=== PATIENT | male | born 1940 | race Caucasian/White ===

== ENCOUNTER 2017-05-08 14:51 | Outpatient (RCR) | payer MEDICARE, BC, SELFPAY ==
[2017-05-08 15:44] LABS: Color, Urine Yellow (Yellow); Glucose, Dipstick Normal (Normal); Ketone-Dipstick Negative (Negative); Leukocyte Esterase-Dipstick 25 /ul (Negative); Nitrite-Dipstick Negative (Negative); Occult Blood-Urine 25 /ul (Negative); Protein-Dipstick Negative (Negative); Specific Gravity, Urine 1.005 (1.002-1.030); Urine Bilirubin Dipstick Negative (Negative); Urine Clarity Sl. Cloudy (Clear); Urine Urobilinogen Normal (Normal)
[2017-05-08 15:54] LABS: International Normalized Ratio 3.4
[2017-05-08 16:26] LABS: LDH 342 U/L (87-241)
[2017-05-09 14:50] LABS: HCG BETA-SUBUNIT QUANT. 1 mIU/mL (0-3)
== END 2017-05-08 15:15 | disposition home or self-care (01) ==
LOC: MTLAB 14:51
PROVIDERS: Family Provider Internal Medicine; PCP Internal Medicine; Visit Provider Internal Medicine Cardiovascular Disease
DX: Z51.81 Encounter for therapeutic drug level monitoring (principal); N50.9 Disorder of male genital organs, unspecified; N32.81 Overactive bladder; C62.92 Malignant neoplasm of left testis, unspecified whether descended or undescended
CPT/HCPCS: 36415; 81002; 82105; 83615; 84702; 85610

== ENCOUNTER → 2017-06-02 13:42 | Outpatient (CLI) | payer MEDICARE, BC, SELFPAY ==
[2017-06-02 16:37] LABS: Phenytoin (Dilantin) Level 13.5 mL (10.0-20.0)
== END ==
PROVIDERS: Family Provider Internal Medicine; PCP Internal Medicine; Visit Provider Internal Medicine
DX: R56.9 Unspecified convulsions (principal)
CPT/HCPCS: 36415; 80185

== ENCOUNTER → 2017-06-05 12:56 | Outpatient (CLI) | payer MEDICARE, BC, SELFPAY ==
--- NOTE | 2017-06-05 12:57 | ECHOD_ITS ---
Reason For Study: Mechanical AV, Dilated Aortic Root Procedure This was a 2D Doppler, Color Flow transthoracic echocardiogram. The exam was of adequate technical quality. Exam performed in department. Left Ventricle Normal LV size. Moderate concentric left ventricular hypertrophy. Left ventricular systolic function is normal. The estimated ejection fraction is 55 %. No regional wall motion abnormalities noted. Right Ventricle Normal RV size. Normal systolic function. Atria Normal left atrium. Normal right atrium. Positive agitated saline contrast study for a right to left interatrial shunt c/w a PFO vs. ASD. Mitral Valve There is no mitral annular calcification. Normal mitral valve. Mild (1+) mitral valve insufficiency. 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 Mild tricuspid valve insufficiency. Right ventricular systolic pressure estimated to be 26 mmHg. Aortic Valve Stable appearing mechanical aortic valve apparatus. Pulmonic Valve The pulmonic valve is not well visualized. Trivial pulmonic valve insufficiency. Great Vessels Mild to moderately dilated aortic root. Pericardium/Pleural No pericardial effusion. Medication 22 gauge I.V. with prn adaptor inserted into right arm. Performed a rapid injection of agitated mix of 9 cc saline and 1cc air to assess for atrial septal defect. MMode/2D Measurements & Calculations LVIDd: 4.3 cm IVSd: 1.5 cm LVOT diam: 2.0 cm LVIDs: 2.8 cm LVPWd: 1.4 cm LVOT area: 3.0 cm2 FS: 34.0 % Ao root diam: 4.5 cm LAV(MOD-bp): 46.7 ml LA A4 area: 16.6 cm2 LA dimension: 3.2 cm LAV(MOD-bp) Indexed: 25.3 ml/m2 LAV(MOD-sp2): 43.0 ml LAV(MOD-sp4): 47.6 ml RA A4 area: 16.4 cm2 Time Measurements MV dec time: 0.36 sec Doppler Measurements & Calculations MV E max sunny: 60.8 cm/sec Lat Peak E' Sunny: 6.8 cm/sec Med Peak E' Sunny: 7.0 cm/sec MV A max sunny: 85.7 cm/sec E/E' lat: 9.0 E/E' med: 8.7 MV E/A: 0.71 MV V2 max: 96.6 cm/sec MV P1/2t max sunny: 64.2 cm/sec Ao V2 max: 255.7 cm/sec MV max P.7 mmHg MV P1/2t: 106.8 msec Ao max P.2 mmHg MV V2 mean: 44.9 cm/sec MV dec slope: 176.0 cm/sec2 Ao V2 mean: 173.0 cm/sec MV mean P.97 mmHg MVA(P1/2t): 2.1 cm2 Ao mean P.8 mmHg MV V2 VTI: 29.3 cm Ao V2 VTI: 47.5 cm MVA(VTI): 1.9 cm2 ROXANNE(I,D): 1.1 cm2 ROXANNE(V,D): 1.0 cm2 LV V1 max: 84.4 cm/sec SV(LVOT): 54.4 ml PA V2 max: 99.2 cm/sec LV V1 max P.9 mmHg LV V1 mean P.3 mmHg LV V1 mean: 51.5 cm/sec LV V1 VTI: 17.9 cm TR max sunny: 240.4 cm/sec TR max P.1 mmHg Interpretation Summary Left ventricular systolic function is normal. The estimated ejection fraction is 55 %. Moderate concentric left ventricular hypertrophy. Mild (1+) mitral valve insufficiency. 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 Stable appearing mechanical aortic valve apparatus. Trivial pulmonic valve insufficiency. Mild to moderately dilated aortic root. Right ventricular systolic pressure estimated to be 26 mmHg. Positive agitated saline contrast study for a right to left interatrial shunt c/w a PFO vs. ASD. 2D echocardiographic images demonstrate a small intermittent vague echodensity on the ventricular aspect of the aortic valve apparatus of uncertain etioloigy: potentially c/w echocardiographic artifact / reverberation, however, other etiologies such as thrombus or vegetation cannt be excluded. C/W the previous TTE from 09/04/2006 there are similar type findings. Ordering Physician: Eran Zimmer Referring Physician: Eran Zimmer Performed By: Jayme Fermin RCS
== END ==
PROVIDERS: Family Provider Internal Medicine; PCP Internal Medicine; Visit Provider Internal Medicine Cardiovascular Disease
DX: I77.810 Thoracic aortic ectasia (principal); I51.9 Heart disease, unspecified; Z87.74 Personal history of (corrected) congenital malformations of heart and circulatory system; Z95.2 Presence of prosthetic heart valve; Z86.79 Personal history of other diseases of the circulatory system; Z98.890 Other specified postprocedural states
CPT/HCPCS: 93306; A4216

== ENCOUNTER 2017-06-12 11:13 | Outpatient (RCR) | payer MEDICARE, BC, SELFPAY ==
[2017-06-12 12:47] LABS: Color, Urine Yellow (Yellow); Glucose, Dipstick Normal (Normal); Ketone-Dipstick Negative (Negative); Leukocyte Esterase-Dipstick 25 /ul (Negative); Nitrite-Dipstick Negative (Negative); Occult Blood-Urine 10 /ul (Negative); Protein-Dipstick Negative (Negative); Urine Bilirubin Dipstick Negative (Negative); Urine Clarity Clear (Clear); Urine Urobilinogen Normal (Normal)
[2017-06-12 14:43] LABS: Phenytoin (Dilantin) Level 8.1 mL (10.0-20.0)
[2017-06-26 11:51] LABS: Prothrombin Time Fingerstick 26.2 SEC (11.9-14.4)
== END 2017-06-12 15:00 | disposition home or self-care (01) ==
LOC: MTLAB 11:13
PROVIDERS: Family Provider Internal Medicine; PCP Internal Medicine; Visit Provider Internal Medicine Cardiovascular Disease
DX: N39.0 Urinary tract infection, site not specified (principal); N32.81 Overactive bladder
CPT/HCPCS: 36415; 36416; 80185; 81002; 85610

== ENCOUNTER 2017-07-31 12:00 | Outpatient (RCR) | payer MEDICARE, BC, SELFPAY ==
[2017-07-10 11:11] LABS: Prothrombin Time Fingerstick 29.8 SEC (11.9-14.4)
[2017-07-31 12:20] LABS: Prothrombin Time Fingerstick 30.1 SEC (11.9-14.4)
== END 2017-07-31 13:00 | disposition home or self-care (01) ==
LOC: MTLAB 12:00
PROVIDERS: Family Provider Family Medicine; PCP Family Medicine; Visit Provider Internal Medicine Cardiovascular Disease
DX: N32.81 Overactive bladder (principal); N39.0 Urinary tract infection, site not specified; Z51.81 Encounter for therapeutic drug level monitoring
CPT/HCPCS: 36416; 85610

== ENCOUNTER 2017-08-12 09:25 | Outpatient (RCR) | payer MEDICARE, BC, SELFPAY ==
[2017-08-12 09:41] LABS: Prothrombin Time Fingerstick 25.1 SEC (11.9-14.4)
[2017-08-12 12:20] LABS: Color, Urine Yellow (Yellow); Glucose, Dipstick Normal (Normal); Ketone-Dipstick Negative (Negative); Leukocyte Esterase-Dipstick Negative /ul (Negative); Nitrite-Dipstick Negative (Negative); Occult Blood-Urine 10 /ul (Negative); Protein-Dipstick Negative (Negative); Urine Bilirubin Dipstick Negative (Negative); Urine Clarity Clear (Clear); Urine Urobilinogen Normal (Normal)
== END 2017-08-12 10:00 | disposition home or self-care (01) ==
LOC: MTLAB 09:25
PROVIDERS: Internal Medicine; Family Provider Family Medicine; PCP Family Medicine; Visit Provider Internal Medicine Cardiovascular Disease
DX: N32.81 Overactive bladder (principal); Z51.81 Encounter for therapeutic drug level monitoring
CPT/HCPCS: 36416; 81002; 85610

== ENCOUNTER → 2017-08-19 09:46 | Outpatient (CLI) | payer MEDICARE, BC, SELFPAY ==
--- NOTE | 2017-08-19 09:48 | ECHOTEE_ITS ---
Reason For Study: Aortic valve replacement Medication EUGENIE probe passed with minimal difficulty. No complications were noted. Cetacaine Topical [place] given X3 orally. Versed 2 mg given slow IVP. Fentanyl 100 mcg given slow IVP. Performed a rapid injection of agitated mix of 9 cc saline and 1cc air to assess for atrial septal defect. Left Ventricle Normal LV size. Left ventricular systolic function is normal. The estimated ejection fraction is 60 %. No regional wall motion abnormalities noted. Right Ventricle Normal RV size. Normal systolic function. Atria Positive agitated saline contrast study for a right to left interatrial shunt c/w a small PFO. The left atrium is mildly enlarged. There is no sponatenous contrast in the left atrium. No thrombus is detected in the left atrial appendage. Normal right atrium. There is no sponatenous contrast in the right atrium. No RA / appendage thrombus identified. Mitral Valve There is no mitral annular calcification. Normal mitral valve. Mild (1+) mitral valve insufficiency. Tricuspid Valve The tricuspid valve is not well visualized. Trivial tricuspid valve insufficiency. Aortic Valve Stable appearing mechanical aortic valve apparatus. Pulmonic Valve The pulmonic valve is not well visualized. Trivial pulmonic valve insufficiency. Vessels Mild atherosclerosis of the descending aorta. Pericardium No pericardial effusion. Interpretation Summary Left ventricular systolic function is normal. The estimated ejection fraction is 60 %. The left atrium is mildly enlarged. There is no sponatenous contrast in the left atrium. No thrombus is detected in the left atrial appendage. Mild (1+) mitral valve insufficiency. Trivial tricuspid valve insufficiency. Stable appearing mechanical aortic valve apparatus. Trivial pulmonic valve insufficiency. Positive agitated saline contrast study for a right to left interatrial shunt c/w a small PFO. Mild atherosclerosis of the descending aorta. 2D echocardiographic images demonstrate intermittent small mobile echodensities in the sub aortic valve area / LVOT area appearing c/w fibrinous strands. Ordering Physician: Eran Zimmer Referring Physician: William Flores MD Performed By: [facility]
== END ==
PROVIDERS: Family Provider Family Medicine; PCP Family Medicine; Visit Provider Internal Medicine Cardiovascular Disease
DX: Z95.2 Presence of prosthetic heart valve (principal)
CPT/HCPCS: 93312; 93320; 93325; J7030; A4216

== ENCOUNTER 2017-08-28 13:47 | Outpatient (RCR) | payer MEDICARE, BC, SELFPAY ==
[2017-08-28 14:01] LABS: Prothrombin Time Fingerstick 16.6 SEC (11.9-14.4)
== END 2017-08-28 14:00 | disposition home or self-care (01) ==
LOC: MTLAB 13:47
PROVIDERS: Family Provider Family Medicine; PCP Family Medicine; Visit Provider Internal Medicine Cardiovascular Disease
DX: Z51.81 Encounter for therapeutic drug level monitoring (principal)
CPT/HCPCS: 36416; 85610

== ENCOUNTER → 2017-09-23 18:31 | Outpatient (CLI) | payer MEDICARE, BC, SELFPAY | PROVIDERS: Family Provider Family Medicine; PCP Nurse Practitioner Adult Health; Visit Provider Nurse Practitioner Adult Health | DX: R35.1 Nocturia (principal) | CPT/HCPCS: 87086 ==

== ENCOUNTER 2017-10-02 13:19 | Outpatient (RCR) | payer MEDICARE, BC, SELFPAY ==
[2017-09-04 13:16] LABS: Prothrombin Time Fingerstick 20.6 SEC (11.9-14.4)
[2017-09-11 15:25] LABS: Prothrombin Time Fingerstick 35.1 SEC (11.9-14.4)
[2017-09-19 10:30] LABS: Prothrombin Time Fingerstick 60.7 SEC (11.9-14.4)
[2017-09-19 12:42] LABS: Prothrombin Time (Protime)PT. 47.6 SECONDS (11.7-14.9)
[2017-09-19 12:45] LABS: International Normalized Ratio 5.1
[2017-09-26 12:53] LABS: International Normalized Ratio 2.9; Prothrombin Time (Protime)PT. 30.1 SECONDS (11.7-14.9)
[2017-10-02 13:36] LABS: Prothrombin Time Fingerstick 36.7 SEC (11.9-14.4)
== END 2017-10-02 14:00 | disposition home or self-care (01) ==
LOC: MTLAB 13:19
PROVIDERS: Family Provider Family Medicine; PCP Family Medicine; Visit Provider Internal Medicine Cardiovascular Disease
DX: R30.0 Dysuria (principal); Z51.81 Encounter for therapeutic drug level monitoring
CPT/HCPCS: 36415; 36416; 85610

== ENCOUNTER 2017-10-23 10:45 | Outpatient (RCR) | payer MEDICARE, BC, SELFPAY ==
--- NOTE | 2017-10-10 16:03 | DT_ITS ---
This patient was seen during an EMR downtime October 06, 2017 - October 13, 2017. This patient may have a combination of paper and electronic documentation or all paper documentation. All documentation is viewable within the e-chart portion of [employer] for each patient visit.
[2017-10-13 10:40] LABS: Prothrombin Time Fingerstick 33.6 SEC (11.9-14.4)
[2017-10-23 11:01] LABS: Prothrombin Time Fingerstick 29.2 SEC (11.9-14.4)
== END 2017-10-23 12:00 | disposition home or self-care (01) ==
LOC: MTLAB 10:45
PROVIDERS: Family Provider Family Medicine; PCP Nurse Practitioner Adult Health; Visit Provider Internal Medicine Cardiovascular Disease
DX: Z51.81 Encounter for therapeutic drug level monitoring (principal)
CPT/HCPCS: 36416; 85610

== ENCOUNTER → 2017-10-30 09:27 | Outpatient (CLI) | payer MEDICARE, BC, SELFPAY ==
[2017-10-30 12:10] LABS: Color, Urine Yellow (Yellow); Glucose, Dipstick Normal (Normal); Ketone-Dipstick Negative (Negative); Leukocyte Esterase-Dipstick 25 /ul (Negative); Nitrite-Dipstick Negative (Negative); Occult Blood-Urine 50 /ul (Negative); Protein-Dipstick Negative (Negative); Urine Bilirubin Dipstick Negative (Negative); Urine Clarity Clear (Clear); Urine Urobilinogen Normal (Normal)
== END ==
PROVIDERS: Family Provider Family Medicine; PCP Nurse Practitioner Adult Health; Visit Provider Family Medicine
DX: R30.0 Dysuria (principal)
CPT/HCPCS: 81002; 87086

== ENCOUNTER 2017-11-01 01:40 | Emergency (ER) | payer MEDICARE, BC, SELFPAY ==
[2017-11-01 01:41] VITALS: BP 147/92; PULSE 66; RESP 24; TEMP 36.7; O2SAT 94; BMI 24.9
[2017-11-01] MEDS: Lidocaine Jelly 2% 20 ML Syringe (URO-JET) 20 APPLIC TOPICAL (02:15)
[2017-11-01 02:17] LABS: Absolute Lymphocyte Count 1.86 X10^3/ul (0.83-4.51); Basophil# 0.02 X10^3/uL; Basophil% 0.2 % (0-1); Eosinophil# 0.18 X10^3/uL; Eosinophils% 2.2 % (0-5); Hematocrit 43.3 % (40-54); Hemoglobin 14.6 g/dl (13.0-16.5); Lymphocyte # 1.86 X10^3/ul (4.0); Lymphocyte % 23.1 % (19-41); Mean Corp Hgb Conc 33.7 g/gl (32-36); Mean Corpuscular Hgb 31.8 pg (27.0-32.0); Mean Corpuscular Volume 94.3 fL (80-94); Monocyte# 0.96 X10^3/uL; Monocyte% 11.9 % (0-10); Neutrophil % 62.4 % (47-70); Platelet Count 131 K/mm3 (150-450); RBC Distribution Width CV 12.3 % (11.6-14.6); Red Blood Count 4.59 M/mm3 (4.6-6.2)
[2017-11-01 02:19] LABS: POSITIVE COUNT NO; POSITIVE DIFFERENTIAL NO; POSITIVE MORPHOLOGY NO
[2017-11-01 02:25] LABS: International Normalized Ratio 2.9; Prothrombin Time (Protime)PT. 30.5 SECONDS (11.7-14.9)
[2017-11-01 02:29] LABS: Anion Gap 7 (5-15); BUN 16 mg/dL (7-18); BUN/Creat Ratio 16.1 RATIO (10-20); Calcium,Total 8.3 mg/dL (8.5-10.1); Chloride 109 mmol/L (98-107); EST Glomerular Filtration Rate 78 mL/min (>60); Est Glom Filt Rate - Afr Amer 94 mL/min (>60); Estimated Creatinine Clearance 61.75 ml/min; Glucose 94 mg/dL (74-106); Potassium 3.9 mmol/L (3.5-5.1); Sodium Level 141 mmol/L (136-145)
[2017-11-01 02:38] LABS: Mucous, Urine 0 SEEN /hpf (<or=2+); Squamous Epithelial Cells - UA 0 SEEN /hpf (0-5); White Blood Cells 0 SEEN /hpf (0-5)
[2017-11-01 02:42] LABS: Color, Urine Yellow (Yellow); Glucose, Dipstick Normal (Normal); Ketone-Dipstick Negative (Negative); Leukocyte Esterase-Dipstick Negative /ul (Negative); Nitrite-Dipstick Negative (Negative); Occult Blood-Urine 250 /ul (Negative); Protein-Dipstick Negative (Negative); Specific Gravity, Urine 1.005 (1.002-1.030); Urine Bilirubin Dipstick Negative (Negative); Urine Clarity Sl. Cloudy (Clear); Urine Urobilinogen Normal (Normal)
[2017-11-01 02:46] VITALS: BP 134/79; RESP 15; O2SAT 93
[2017-11-01 02:53] LABS: Red Blood Cells-Urine 25-50 SEEN /hpf (0-5)
[2017-11-01 02:55] LABS: Bacteria RARE /hpf (None Seen)
--- NOTE | 2017-11-01 03:11 | ED.VISSUMM ---
- ER Visit Summary Date of Service: 11/01/17 Chief Complaint: Urinary retention History of Present Illness: The patient is a [address] Andrews and Dr. Sethi. 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 He states he does not empty his bladder well at baseline, but reports that he has had very small volumes for the past 2 days and feels as though he needs to urinate constantly. He denies any abdominal pain. No nausea, vomiting, or diarrhea. His last problem was 2 days ago. Typically he goes daily. He denies any dysuria or hematuria. Physical Examination: Vitals: Stable. Afebrile. General: Well-nourished and well-developed. Head: Normocephalic atraumatic. Neck: Supple, no lymphadenopathy. No JVD. Nontender. Cardiovascular: Regular rate and rhythm. 2 out of 6 systolic murmur with mechanical valve click. Respiratory: No respiratory distress. Clear to auscultation bilaterally. Abdominal: Soft, nontender, nondistended, normal bowel sounds. No guarding, rebound, or peritoneal signs. Back: Nontender. Extremities: Nontender, no edema. Skin: Normal color, no rash. Neurologic: Alert and oriented ?3. Cranial nerves II through XII are intact. Normal strength and sensation. Psych: Normal affect. Test Results: CBC is more for platelets 131 monocytes of 12. Chem-7 more for chloride of 109 and calcium of 8.3. Of note his creatinine is 1.0. INR is 2.9. UA shows 25-50 red blood cells, but this was after catheterization. Emergency Department Course and Treatment: Patient had a Mena catheter placed in the medial he had 600 cc of urine out. He feels much improved. Treatment Plan: Patient will be discharged with Mena catheter and Flomax. Instructed to follow Dr. Andrews in 3-5 days for further evaluation. Return to the emergency department for any worsening symptoms. Disposition: To home in improved and stable condition. Impression: 1. Urinary retention. This note was generated with [employer] software. It may contain incorrect words, spelling, and punctuation that were not noted in review of the chart prior to signing ED Disposition - Plan for ED Patient: Disposition: Home or Assisted Living Chief Complaint: Constipation Instructions: ED Retention Urinary Male Prescriptions: Cephalexin [Keflex] 500 mg PO BID #10 capsule Referrals: Kevin Andrews MD [STAFF PHYSICIAN] - 3-5 Days
--- NOTE | 2017-11-01 03:14 | ED.DCSUM_ITS ---
- ER Visit Summary Date of Service: 11/01/17 Chief Complaint: Urinary retention History of Present Illness: The patient is a [address] Andrews and Dr. Sethi. 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 He states he does not empty his bladder well at baseline, but reports that he has had very small volumes for the past 2 days and feels as though he needs to urinate constantly. He denies any abdominal pain. No nausea , vomiting, or diarrhea. His last problem was 2 days ago. Typically he goes daily. He denies any dysuria or hematuria. Physical Examination: Vitals: Stable. Afebrile. General: Well-nourished and well-developed. Head: Normocephalic atraumatic. Neck: Supple, no lymphadenopathy. No JVD. Nontender. Cardiovascular: Regular rate and rhythm. 2 out of 6 systolic murmur with mechanical valve click. Respiratory: No respiratory distress. Clear to auscultation bilaterally. Abdominal: Soft, nontender, nondistended, normal bowel sounds. No guarding, rebound, or peritoneal signs. Back: Nontender. Extremities: Nontender, no edema. Skin: Normal color, no rash. Neurologic: Alert and oriented ?3. Cranial nerves II through XII are intact. Normal strength and sensation. Psych: Normal affect. Test Results: CBC is more for platelets 131 monocytes of 12. Chem-7 more for chloride of 109 and calcium of 8.3. Of note his creatinine is 1.0. INR is 2.9. UA shows 25-50 red blood cells, but this was after catheterization. Emergency Department Course and Treatment: Patient had a Mena catheter placed in the medial he had 600 cc of urine out. He feels much improved. Treatment Plan: Patient will be discharged with Mena catheter and Flomax. Instructed to follow Dr. Andrews in 3-5 days for further evaluation. Return to the emergency department for any worsening symptoms. Disposition: To home in improved and stable condition. Impression: 1. Urinary retention. This note was generated with [employer] software. It may contain incorrect words, spelling, and punctuation that were not noted in review of the chart prior to signing ED Disposition - Plan for ED Patient: Disposition: Home or Assisted Living Chief Complaint: Constipation Instructions: ED Retention Urinary Male Prescriptions: Cephalexin [Keflex] 500 mg PO BID #10 capsule Referrals: Kevin Andrews MD [STAFF PHYSICIAN] - 3-5 Days
[2017-11-01] MEDS: Cephalexin 250 MG Capsule 500 MG PO (03:22)
[2017-11-01 04:42] VITALS: BP 134/79; RESP 15; O2SAT 94
== END 2017-11-01 03:41 | disposition home or self-care (01) ==
PROVIDERS: Emergency Provider Emergency Medicine; Family Provider Family Medicine; PCP Family Medicine
DX: R33.9 Retention of urine, unspecified (principal); I69.398 Other sequelae of cerebral infarction; N32.89 Other specified disorders of bladder; I63.9 Cerebral infarction, unspecified; Z79.899 Other long term (current) drug therapy
CPT/HCPCS: 51702; 80048; 81001; 85025; 85610; 99285; A4216

== ENCOUNTER 2017-11-03 23:54 | Emergency (ER) | payer MEDICARE, BC, SELFPAY ==
[2017-11-03 23:55] VITALS: BP 150/86; PULSE 83; RESP 16; TEMP 36.8; O2SAT 97; BMI 23.6
--- NOTE | 2017-11-04 00:36 | ED.VISSUMM ---
- ER Visit Summary Date of Service: 11/04/17 Chief Complaint: Urinary retention History of Present Illness: The patient is a 77 M status post urinary retention due to enlarged prostate. At his Mena catheter taken out earlier today and his urologist office Dr. Villeda. Throughout the day since his catheter is removed he has had decreasing urination to the point where he was unable to urinate. Denies gross hematuria. Denies fever. Physical Examination: Well-appearing older male. Vital signs are stable afebrile. He does not look septic or toxic. He is in no acute distress. HEENT exam unremarkable. Neck nontender. Lungs clear to auscultation. Heart regular rhythm with a systolic ejection murmur from a prior aortic valve replacement. Abdomen is soft nondistended normal bowel sounds. He does have a full bladder and is mild tenderness suprapubically. External exam is unremarkable and he is circumcised. No gross blood. He has weakness in both left upper and lower extremity from a prior stroke. He is awake alert and talking. Test Results: None Emergency Department Course and Treatment: Nursing staff placed a 16 [place] Mena catheter with clear yellow urine. He had about 1 L out. On repeat exam at 00 36 he feels much better. His abdomen is nontender. He and his are comfortable with him being discharged home with a Mena catheter leg bag. He will follow-up with Dr. Andrews. He has a scheduled cystoscopy in the next week or so. Treatment Plan: DC with Mena leg bag Disposition: Discharge Impression: Acute urinary retention Mena catheter placed by nursing staff This note was generated with [employer] dictation software. It may contain incorrect words, spelling, and punctuation that were not noted in review of the chart prior to signing ED Disposition - Plan for ED Patient: Chief Complaint: Complaint Referrals: Magdaleno Flores MD [Primary Care Provider] -
--- NOTE | 2017-11-04 00:39 | ED.DEP ---
ED Disposition - Plan for ED Patient: Disposition: Home or Assisted Living Chief Complaint: Complaint Instructions: ED Retention Urinary Male Referrals: Kevin Andrews MD [STAFF PHYSICIAN] - As soon as possible Additional Instructions: Call follow-up with Dr. Andrews
== END 2017-11-04 02:08 | disposition home or self-care (01) ==
LOC: ED 11-04 01:17
PROVIDERS: Emergency Provider Emergency Medicine; Family Provider Family Medicine; PCP Family Medicine
DX: N40.1 Benign prostatic hyperplasia with lower urinary tract symptoms (principal); R33.8 Other retention of urine; Z86.73 Personal history of transient ischemic attack (TIA), and cerebral infarction without residual deficits
CPT/HCPCS: 51702; 99283

== ENCOUNTER 2017-11-29 03:19 | Inpatient (IN) | payer MEDICARE, BC, SELFPAY ==
[2017-11-29] VITALS (11 sets, daily range): BP systolic 116–159; BP diastolic 68–98; PULSE 49–68; RESP 16–20; TEMP 36.5–37.1; O2SAT 95–100; BMI 24.6; BMI 25.2
[2017-11-29 05:11] LABS: Absolute Lymphocyte Count 1.86 X10^3/ul (0.83-4.51); Absolute Neutrophil Count 3.6 X10^3/uL (2.0-7.7); Basophil# 0.01 X10^3/uL; Basophil% 0.2 % (0-1); Eosinophil# 0.25 X10^3/uL; Eosinophils% 3.9 % (0-5); Hematocrit 44.5 % (40-54); Lymphocyte # 1.86 X10^3/ul (4.0); Lymphocyte % 29.2 % (19-41); Mean Corp Hgb Conc 33.7 g/gl (32-36); Mean Corpuscular Hgb 32.3 pg (27.0-32.0); Mean Corpuscular Volume 95.7 fL (80-94); Mean Platelet Vol. 12.2 fl (6.2-12.0); Monocyte# 0.68 X10^3/uL; Monocyte% 10.7 % (0-10); Neutrophil # 3.55 X10^3/uL (2.7-7.7); Neutrophil % 55.8 % (47-70); Platelet Count 138 K/mm3 (150-450); RBC Distribution Width CV 12.1 % (11.6-14.6); RBC Distribution Width SD 41.2 fl (35.1-43.9); Red Blood Count 4.65 M/mm3 (4.6-6.2); White Blood Count 6.4 K/mm3 (4.4-11.0)
[2017-11-29 05:13] LABS: POSITIVE COUNT NO; POSITIVE DIFFERENTIAL NO; POSITIVE MORPHOLOGY NO
[2017-11-29 05:14] LABS: International Normalized Ratio 1.1; Prothrombin Time (Protime)PT. 14.4 SECONDS (11.7-14.9)
[2017-11-29 05:15] LABS: Partial Thromboplast Time 38.4 Seconds (24.1-36.2)
[2017-11-29 05:24] LABS: Anion Gap 8 (5-15); BUN 16 mg/dL (7-18); BUN/Creat Ratio 16.4 RATIO (10-20); Calcium,Total 8.5 mg/dL (8.5-10.1); Chloride 108 mmol/L (98-107); Creatinine, Serum 0.98 mg/dL (0.70-1.30); EST Glomerular Filtration Rate 80 mL/min (>60); Est Glom Filt Rate - Afr Amer 96 mL/min (>60); Estimated Creatinine Clearance 65.13 ml/min; Glucose 86 mg/dL (74-106); Potassium 4.4 mmol/L (3.5-5.1); Sodium Level 143 mmol/L (136-145)
[2017-11-29] MEDS: 0.9% Normal Saline 1,000 ML 150 ML IV (05:27)
[2017-11-29] MEDS: Cefazolin 1 GM/50 ML BAG IV (05:28)
[2017-11-29 05:36] LABS: Mucous, Urine 0 SEEN /hpf (<or=2+); Squamous Epithelial Cells - UA 0 SEEN /hpf (0-5); White Blood Cells 0 SEEN /hpf (0-5)
[2017-11-29 05:40] LABS: Color, Urine Red (Yellow); Glucose, Dipstick Normal (Normal); Ketone-Dipstick 15 mg/dl (Negative); Leukocyte Esterase-Dipstick Negative /ul (Negative); Nitrite-Dipstick Negative (Negative); Occult Blood-Urine 250 /ul (Negative); Protein-Dipstick 100 mg/dl (Negative); Urine Clarity Turbid (Clear); Urine Urobilinogen Normal (Normal)
--- NOTE | 2017-11-29 05:45 | HP.PCM_ITS ---
Problem List (1) Gross hematuria Status: Acute (2) Seizure disorder Status: Chronic (3) History of stroke Status: Chronic (4) History of mechanical aortic valve replacement Status: Chronic Comment: 1980; Revision AVR 1991 (5) History of endocarditis Status: Chronic (6) emt intermediate (current) use of anticoagulants Status: Chronic History of Present Illness Date of Admission: 11/29/17 Chief Complaint: Gross hematuria ?1 day The patient is a 77 year old M with a significant history of CVA, mechanical aortic valve first placed in 1980 because of aortic valve insufficiency and then replaced in 1991 because of infective endocarditis; seizure disorder, CVA and BPH who presented because of gross hematuria ?1 day. The patient had urinary retention about 4 weeks ago and had a Mena placed. After the first Mena was removed patient still noticed that he could not urinate so the Mena catheter was reinserted. He had a urolift procedure at his urologist's office to fix his urinary retention. Before the urolift procedure, per his assisted living executive director's instructions his Coumadin was stopped and he had a therapeutic bridge with Lovenox. After the Urolift procedure the patient noticed that the bag of his Mena catheter was filled with blood and the bag could not be drained. Subsequently patient came to the emergency department. At emergency department urology was called. Per urologist's recommendation the patient was given Ancef for another urological procedure today. Past Medical History Past Medical History (Chronic Problems): Chronic Problems (Last Updated 08/05/17 @ 14:38 by Rosemary Albrecht) Diastolic dysfunction (Chronic) Seizure disorder (Chronic) History of stroke (Chronic) History of mechanical aortic valve replacement (Chronic) 1980; Revision AVR 1991 History of endocarditis (Chronic) Hyperlipidemia (Chronic) Aortic root dilatation (Chronic) emt intermediate (current) use of anticoagulants (Chronic) Medical History: Medical History (Last Reviewed 11/29/17 @ 08:48 by Dawit Munoz MD) Diastolic dysfunction (Chronic) I51.9 Seizure disorder (Chronic) G40.909 History of stroke (Chronic) Z86.73 History of endocarditis (Chronic) Z86.79 Hyperlipidemia (Chronic) E78.5 Aortic root dilatation (Chronic) I77.810 emt intermediate (current) use of anticoagulants (Chronic) Z79.01 Herniated lumbar disc without myelopathy M51.26 Osteoarthritis of right knee M17.11 Pseudogout M11.20 Stroke I63.9 Herniated lumbar disc without myelopathy (Inactive) M51.26 Muscle spasms of neck (Inactive) M62.838 Seizure disorder (Inactive) G40.909 Urinary retention (Inactive) R33.9 Allergies No Known Allergies Allergy (Verified 11/03/17 23:59) Home Medications: Ambulatory Orders Medication Instructions Recorded Cyanocobalamin [Vitamin B12] 1,000 mcg PO QODAY 02/15/13 Levetiracetam [Keppra] 1,500 mg PO QHS 02/15/13 Warfarin [Coumadin] 7.5 mg PO MOWEFR 02/15/13 Finasteride [Proscar] 5 mg PO QHS 06/02/14 Alfuzosin HCl [Uroxatral] 20 mg PO QHS 02/20/15 Warfarin [Coumadin (PBKC)] 5 mg PO SUTUTHSA 02/20/15 antiarthritic combination no.2 900 900 mg PO TID ea 05/23/17 mg tablet calcium carbonate 600 mg calcium 600 mg PO BID tab 05/23/17 (1,500 mg) tablet cholecalciferol (vitamin D3) 50,000 unit PO QWEEK 05/23/17 50,000 unit capsule levetiracetam 1,000 mg tablet 1,000 mg PO DAILY 05/23/17 cjatfeto-fyx-kwpyi acid 0.4 1 tab PO QDAY 05/23/17 mg-lycopene 300 mcg-lutein 250 mcg tablet phenytoin sodium extended 100 mg 100 mg PO BID cap 05/23/17 capsule alendronate 70 mg tablet 70 mg PO QWEEK 28 Days #4 08/05/17 rosuvastatin 5 mg tablet 5 mg PO QHS 90 Days #90 08/05/17 tamsulosin 0.4 mg capsule 0.4 mg PO BID 08/05/17 Cephalexin [Keflex] 500 mg PO BID 11/29/17 Surgical History: Surgical History (Last Reviewed 11/29/17 @ 08:48 by Dawit Munoz MD) History of mechanical aortic valve replacement (Chronic) Z98.890, Z95.2 1980; Revision AVR 1991 History of back surgery Onset Date: ~1990 Z98.890 H/O aortic valve replacement (Inactive) Z95.2 Surgical History: - - Aortic while replacement in 1980 and again in 1991 Psychiatric History: No pertinent psych hx Smoking Status: Never smoker Tobacco Use: Non-smoker Alcohol: None - *Family History Paternal Family History: Family History (Last Updated 08/05/17 @ 14:39 by Rosemary Albrecht) Father Cancer Mother Old age Review of Systems Constitutional: Reports: Fatigue. Denies: Chills, Fever, Weight Change HEENT: Denies: Head Aches, Sinus Congestion, Sinus Drainage Cardiovascular: Denies: Chest Pain, Palpitations Respiratory: Reports: Cough Gastrointestinal: Denies: Abdominal Pain, Nausea, Vomiting Genitourinary: Reports: - - Gross hematuria Musculoskeletal: Denies: Joint Pain, Joint Tenderness Skin: Denies: Rash, Wounds Neurological: Denies: Numbness, Tingling, Focal weakness Psychiatric: Reports: Anxiety Hematologic/ Lymphatic: Denies: Easy Bruising, Easy Bleeding VTE Information - Inpt Only VTE Present on Admission: No VTE Mechan Device Prophylaxis: SCD's VTE Pharm Prophylaxis ordered?: No Reason prophylaxis not ordered:: Medical Contraindication Patient Problems: Active and Suspected Problems (Last Updated 08/05/17 @ 14:38 by Rosemary Albrecht) Gross hematuria (Acute) - Physical Exam General: Alert, Oriented x3, Cooperative HEENT: Atraumatic, PERRLA, EOMI, Normocephalic Neck: Supple, No JVD, Negative Carotid Bruits Lungs: No wheeze Cardiovascular: Regular rate, No murmurs Abdomen: Bowel Sounds Present, Soft, Non Tender, Non-Distended, - - Gross hematuria seen in bag of previous Mena catheter Extremities: - - Bilateral bunion with deviation of hallucis Skin: No rashes, No breakdown Musculoskeletal: No Tenderness to Palpation of Joints or Extremities Lymphatic: No Cervical, Supraclavicular, or Inguinal Adenopathy Neurological: Cranial nerves II-XII grossly intact Psych/Mental Status: Normal Affect Vital Signs Temp Pulse Resp BP Pulse Ox 97.7 F L 54 L 20 H 153/98 H 100 11/29/17 03:19 11/29/17 03:19 11/29/17 03:19 11/29/17 03:19 11/29/17 03:19 Oxygen Delivery Method Room Air Weight: 75.7 kg Body Mass Index (BMI) 24.6 Laboratory Tests Past 24 Hrs 11/29/17 11/29/17 11/29/17 03:40 03:40 03:40 WBC 6.4 RBC 4.65 Hgb 15.0 Hct 44.5 MCV 95.7 H MCH 32.3 H MCHC 33.7 RDW 12.1 RDW Differential 41.2 Plt Count 138 L MPV 12.2 H Immature Gran % (Auto) 0.200 Neut % (Auto) 55.8 Lymph % (Auto) 29.2 Sharp % (Auto) 10.7 H Eos % (Auto) 3.9 Baso % (Auto) 0.2 Absolute Neuts (auto) 3.6 Absolute Lymphs (auto) 1.86 Total Counted Not Reportable PT 14.4 INR 1.1 APTT 38.4 H Sodium 143 Potassium 4.4 Chloride 108 H Carbon Dioxide 27.0 Anion Gap 8 BUN 16 Creatinine 0.98 Estim Creat Clear Calc 65.13 Est GFR (MDRD) Af Amer 96 Est GFR (MDRD) Non-Af 80 BUN/Creatinine Ratio 16.4 Glucose 86 Calcium 8.5 Urine Color Urine Clarity Urine pH Ur Specific [place] Urine Protein Urine Glucose (UA) Urine Ketones Urine Occult Blood Urine Nitrite Urine Bilirubin Urine Urobilinogen Ur Leukocyte Esterase Urine RBC Urine WBC Ur Squamous Epith Cells Urine Bacteria Urine Mucus 11/29/17 05:32 WBC RBC Hgb Hct MCV MCH MCHC RDW RDW Differential Plt Count MPV Immature Gran % (Auto) Neut % (Auto) Lymph % (Auto) Sharp % (Auto) Eos % (Auto) Baso % (Auto) Absolute Neuts (auto) Absolute Lymphs (auto) Total Counted PT INR APTT Sodium Potassium Chloride Carbon Dioxide Anion Gap BUN Creatinine Estim Creat Clear Calc Est GFR (MDRD) Af Amer Est GFR (MDRD) Non-Af BUN/Creatinine Ratio Glucose Calcium Urine Color Pending Urine Clarity Pending Urine pH Pending Ur Specific [place] Pending Urine Protein Pending Urine Glucose (UA) Pending Urine Ketones Pending Urine Occult Blood Pending Urine Nitrite Pending Urine Bilirubin Pending Urine Urobilinogen Pending Ur Leukocyte Esterase Pending Urine RBC Pending Urine WBC Pending Ur Squamous Epith Cells Pending Urine Bacteria Pending Urine Mucus Pending Assessment/Plan All Active Problems (Last Updated 08/05/17 @ 14:38 by Rosemary Albrecht) Gross hematuria (Acute) The patient is a 77 year old M with a significant history of CVA, mechanical aortic valve first placed in 1980 because of aortic valve insufficiency and then replaced in 1991 because of infective endocarditis; seizure disorder, CVA and BPH who presented because of gross hematuria ?1 day after a urolift. Gross hematuria. Urology to see patient for possible intervention. Status post Ancef N.p.o. IV hydration. Coumadin on hold at this time. History of seizure disorder Keppra continued BPH finasteride continued Mena catheter in place DVT prophylaxis SCD Code Visit Inpatient E&M: 31027 Init Hosp L2
[2017-11-29 05:46] LABS: Urine Bilirubin Dipstick 3 mg/dL (Negative)
[2017-11-29 05:47] LABS: Bacteria RARE /hpf (None Seen); Red Blood Cells-Urine 50-100 SEEN /hpf (0-5)
--- NOTE | 2017-11-29 05:48 | ED.VISSUMM ---
- ER Visit Summary Date of Service: 11/29/17 Chief Complaint: Hematuria History of Present Illness: The patient is a 77 M blood from Mena catheter starting at 1:50 AM this morning. Status post urolift by Dr. Andrews in the office yesterday. 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 He was on a Lovenox bridge for his procedure Coumadin was restarted yesterday evening. History of BPH. Urine retention leading to the procedure. Denies lightheaded symptoms. Physical Examination: General: Alert and oriented ?3, no acute distress HEENT: Normocephalic, atraumatic. Moist mucosa membranes Neck: supple, nontender. Cardiovascular: Regular rate and rhythm, no murmurs Respiratory: Normal breath sounds, symmetric, no distress Abdomen: Soft, nontender, nondistended : Single port Mena, 1 L of gross blood in the bag. Extremities: Nontender, no edema, pulses intact ?4 Neuro: no focal neurological deficits. Test Results: Hemoglobin 15, creatinine 0.98. INR 1.1. PTT 30.4. UA pending. Emergency Department Course and Treatment: Gross hematuria in the Mena bag. Labs are drawn normal hemoglobin. Coag stable. UA pending. With patient's recent procedure, I did speak with covering urologist Dr. Carvajal, were not manipulate the Mena at this time. States keep patient n.p.o. start Ancef IV. She will evaluate the patient when she comes to the hospital the next 2 hours. She does agree with admitting to medicine floor. Spoke with hospitalist for admission. Treatment Plan: [] Disposition: Admission Impression: 1. Gross hematuria 2. Status post urolift This note was generated with [employer] dictation software. It may contain incorrect words, spelling, and punctuation that were not noted in review of the chart prior to signing ED Disposition - Plan for ED Patient: Disposition: Acute Care Hospital [facility] Chief Complaint: Complaint Diagnosis: Gross hematuria Referrals: Magdaleno Flores MD [Primary Care Provider] -
--- NOTE | 2017-11-29 05:52 | ED.DCSUM_ITS ---
- ER Visit Summary Date of Service: 11/29/17 Chief Complaint: Hematuria History of Present Illness: The patient is a 77 M blood from Mena catheter starting at 1:50 AM this morning. Status post urolift by Dr. Andrews in the office yesterday. 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 He was on a Lovenox bridge for his procedure Coumadin was restarted yesterday evening. History of BPH. Urine retention leading to the procedure. Denies lightheaded symptoms. Physical Examination: General: Alert and oriented ?3, no acute distress HEENT: Normocephalic, atraumatic. Moist mucosa membranes Neck: supple, nontender. Cardiovascular: Regular rate and rhythm, no murmurs Respiratory: Normal breath sounds, symmetric, no distress Abdomen: Soft, nontender, nondistended : Single port Mena, 1 L of gross blood in the bag. Extremities: Nontender, no edema, pulses intact ?4 Neuro: no focal neurological deficits. Test Results: Hemoglobin 15, creatinine 0.98. INR 1.1. PTT 30.4. UA pending. Emergency Department Course and Treatment: Gross hematuria in the Mena bag. Labs are drawn normal hemoglobin. Coag stable. UA pending. With patient's recent procedure, I did speak with covering urologist Dr. Carvajal, were not manipulate the Mena at this time. States keep patient n.p.o. start Ancef IV. She will evaluate the patient when she comes to the hospital the next 2 hours. She does agree with admitting to medicine floor. Spoke with hospitalist for admission. Treatment Plan: [] Disposition: Admission Impression: 1. Gross hematuria 2. Status post urolift This note was generated with [employer] dictation software. It may contain incorrect words, spelling, and punctuation that were not noted in review of the chart prior to signing ED Disposition - Plan for ED Patient: Disposition: Acute Care Hospital [facility] Chief Complaint: Complaint Diagnosis: Gross hematuria Referrals: aMgdaleno Flores MD [Primary Care Provider] -
--- NOTE | 2017-11-29 06:40 | NURSING ---
Called [facility] ED charge nurse, belén to send patient to the floor.
--- NOTE | 2017-11-29 08:49 | PCM.PN.GU ---
Physical Exam Subjective: Andrea is awake, up in bed, alert and in no acute distress. He is feeling well without complaints of pain in his abdomen, flank. He is not dizzy or lightheaded this morning. He is able to report the findings from yesterday including the insertion of the Urolift and Mena catheter and Dr. Andrews's office. The gross hematuria increased around midnight and he presented to the emergency room for evaluation and treatment. He has had no fevers or chills. - Physical Exam Vital Signs Temp 98.4 F 11/29/17 07:54 Pulse 54 L 11/29/17 07:54 Resp 18 11/29/17 07:54 BP 152/85 H 11/29/17 07:54 Pulse Ox 97 11/29/17 07:54 Intake & Output 11/27/17 11/28/17 11/29/17 23:59 23:59 23:59 Weight: 73.074 kg General: Alert, Oriented x3, Cooperative, No apparent distress HEENT: Atraumatic Oral: Moist Mucosa Neck: Supple Lungs: Normal air movement Abdomen: Soft, Non Tender, Non-Distended Rectal: Exam deferred Scrotum: No lesions, No edema Penis: Circumcised, Mena in place, Normal urethral meatus Skin: No rashes Musculoskeletal: No Muscle Wasting Neurological: Cranial nerves II-XII grossly intact Psych/Mental Status: Normal Affect Medical Necessity - Tobacco Use Smoking Status: Never smoker Assessment/Plan All Active Problems (Last Updated 08/05/17 @ 14:05 by Lainey Amado) Gross hematuria (Acute) History of mechanical aortic valve replacement (Resolved) Continue observation Mena catheter and irrigation as needed to keep urine light pink to clear. Laboratory studies are within normal limits, await results of urine culture. If Mena catheter remains clear tomorrow morning the patient can be discharged home to follow-up with Dr. Andrews as scheduled.
[2017-11-29] MEDS: Dextrose 5%-Lactated Ringers 1,000 ML 100 ML IV ×2 (10:18→19:47)
[2017-11-29] MEDS: Cyanocobalamin 500 MCG Tablet 1000 MCG PO (10:19)
[2017-11-29] MEDS: Cephalexin 500 MG Capsule PO ×2 (10:20→20:38)
[2017-11-29] MEDS: Tamsulosin HCl 0.4 MG Capsule PO ×2 (10:20→20:40)
[2017-11-29] MEDS: Phenytoin Na 100 MG Capsule PO ×2 (10:20→16:56)
[2017-11-29] MEDS: levETIRAcetam 1,000 MG Tablet 1000 MG PO (11:40)
--- NOTE | 2017-11-29 14:30 | CASEMGMT ---
Face to Face with patient for initial transition planning/care coordination assessment. RN HERMILA introduced self and role at [facility], pt voices understanding and consents to assessment at this time. Pt is sitting up in bed in no distress at this time. Pt is A/O x4 at this time and answers all questions appropriately at this time. Care providers, pharmacy, and demographics verified. See attached link. Pt voices no further concerns/needs at this time. Advised pt to ask for CM if any further questions/concerns/needs arise, voices understanding. CM to follow for any further discharge planning/needs. PLAN: Home [facility] [employer]
[2017-11-29] MEDS: Finasteride 5 MG Tablet PO (20:38)
[2017-11-29] MEDS: levETIRAcetam 750 MG Tablet 1500 MG PO (20:39)
[2017-11-29] MEDS: Atorvastatin Calcium 10 MG Tablet PO (20:39)
[2017-11-30 03:19] VITALS: PULSE 53
[2017-11-30 04:15] VITALS: BP 129/70; PULSE 55; RESP 18; TEMP 36.8; O2SAT 98
[2017-11-30] MEDS: Dextrose 5%-Lactated Ringers 1,000 ML 100 ML IV (04:56)
[2017-11-30 06:08] LABS: Absolute Lymphocyte Count 1.29 X10^3/ul (0.83-4.51); Absolute Neutrophil Count 3.8 X10^3/uL (2.0-7.7); Basophil# 0.01 X10^3/uL; Basophil% 0.2 % (0-1); Eosinophil# 0.27 X10^3/uL; Eosinophils% 4.5 % (0-5); Hematocrit 42.3 % (40-54); Hemoglobin 14.3 g/dl (13.0-16.5); Lymphocyte # 1.29 X10^3/ul (4.0); Lymphocyte % 21.4 % (19-41); Mean Corp Hgb Conc 33.8 g/gl (32-36); Mean Corpuscular Hgb 32.3 pg (27.0-32.0); Mean Corpuscular Volume 95.5 fL (80-94); Monocyte# 0.65 X10^3/uL; Monocyte% 10.8 % (0-10); Neutrophil % 62.9 % (47-70); Platelet Count 133 K/mm3 (150-450); RBC Distribution Width SD 41.3 fl (35.1-43.9); Red Blood Count 4.43 M/mm3 (4.6-6.2)
[2017-11-30 06:11] LABS: International Normalized Ratio 1.5
[2017-11-30 06:12] LABS: POSITIVE COUNT NO; POSITIVE DIFFERENTIAL NO; POSITIVE MORPHOLOGY NO
[2017-11-30 07:15] VITALS: PULSE 56
[2017-11-30 08:00] VITALS: O2SAT 93
[2017-11-30] MEDS: Phenytoin Na 100 MG Capsule PO (08:03)
[2017-11-30] MEDS: Cyanocobalamin 500 MCG Tablet 1000 MCG PO (08:03)
--- NOTE | 2017-11-30 09:36 | DCINST_ITS ---
- Discharge Diagnoses Current Active Problems: Current Active and Chronic Problems (Last Reviewed 11/29/17 @ 08:48 by Dawit Munoz MD) Gross hematuria (Acute) You will use the following diet at home:: No restrictions Your food should be the consistency of: Regular Your liquids should be the consistency of: Regular/Thin Discharge Activity: Return to Normal Activity Weight Bearing Status: Full weight bearing Allergies/Adverse Reactions: Allergies No Known Allergies Allergy (Verified 11/03/17 23:59) Medications to take at Discharge Cyanocobalamin [Vitamin B12] 1,000 mcg PO QODAY 02/15/13 Levetiracetam [Keppra] 1,500 mg PO QHS 02/15/13 Finasteride [Proscar] 5 mg PO QHS 06/02/14 antiarthritic combination no.2 900 mg tablet 900 mg PO TID ea 05/23/17 calcium carbonate 600 mg calcium (1,500 mg) tablet 600 mg PO BID tab 05/23/17 cholecalciferol (vitamin D3) 50,000 unit capsule 50,000 unit PO QWEEK 05/23/17 levetiracetam 1,000 mg tablet 1,000 mg PO DAILY 05/23/17 ycnddbpz-ruy-omsyn acid 0.4 mg-lycopene 300 mcg-lutein 250 mcg tablet 1 tab PO QDAY 05/23/17 phenytoin sodium extended 100 mg capsule 100 mg PO BID cap 05/23/17 alendronate 70 mg tablet 70 mg PO QWEEK 28 Days #4 08/05/17 rosuvastatin 5 mg tablet 5 mg PO QHS 90 Days #90 08/05/17 tamsulosin 0.4 mg capsule 0.4 mg PO BID 08/05/17 Cyanocobalamin [Vitamin B12] 1,000 mcg PO DAILY@0800 tablet 11/30/17 Primary Care Physician: Magdaleno Flores MD [Primary Care Provider] - Please follow up with your Primary Care Physician in: as scheduled Test Results: Test results from this visit will be discussed in further detail at your follow- up appointment, if applicable. Please Follow Up With: Kevin Andrews MD When: as scheduled
[2017-11-30 09:40] VITALS: BP 107/72; PULSE 56; RESP 16; TEMP 36.6; O2SAT 93
[2017-11-30] MEDS: levETIRAcetam 1,000 MG Tablet 1000 MG PO (09:50)
[2017-11-30] MEDS: Tamsulosin HCl 0.4 MG Capsule PO (09:50)
--- NOTE | 2017-11-30 10:03 | PN_ITS ---
Physical Exam Subjective: Feeling well, no issues. Medicine already discharged him. saw him yesterday as well. - Physical Exam Vital Signs Temp 97.9 F 11/30/17 09:40 Pulse 56 L 11/30/17 09:40 Resp 16 11/30/17 09:40 BP 107/72 11/30/17 09:40 Pulse Ox 93 11/30/17 09:40 Intake & Output 11/28/17 11/29/17 11/30/17 23:59 23:59 23:59 Intake Total 1674 / 1674 1162 / 1162 Output Total 1600 / 1600 1500 / 1500 Balance 74 / 74 -338 / -338 Weight: 73.074 kg Intake: Oral 600 / 600 IV fluid/meds 1074 / 1074 1162 / 1162 Output: Urine 1600 / 1600 1500 / 1500 General: Alert, Oriented x3, Cooperative, No apparent distress HEENT: Atraumatic Oral: Moist Mucosa Lungs: Normal air movement Abdomen: Soft, Non Tender, Non-Distended Neurological: Cranial nerves II-XII grossly intact Psych/Mental Status: Normal Affect, Appropriate Comment: Mena with clear urine. Laboratory Tests Past 24 Hrs 11/30/17 11/30/17 05:24 05:24 WBC 6.0 RBC 4.43 L Hgb 14.3 Hct 42.3 MCV 95.5 H MCH 32.3 H MCHC 33.8 RDW 12.0 RDW Differential 41.3 Plt Count 133 L MPV 12.0 Immature Gran % (Auto) 0.200 Neut % (Auto) 62.9 Lymph % (Auto) 21.4 [place] % (Auto) 10.8 H Eos % (Auto) 4.5 Baso % (Auto) 0.2 Absolute Neuts (auto) 3.8 Absolute Lymphs (auto) 1.29 Total Counted Not Reportable PT 18.0 H INR 1.5 Medical Necessity - Tobacco Use Smoking Status: Never smoker Tobacco Use: Non-smoker Assessment/Plan All Active Problems (Last Reviewed 11/29/17 @ 08:48 by Dawit Munoz MD) Gross hematuria (Acute) No further antibiotics. Home with sudarshan and follow up with in 2 weeks.
--- NOTE | 2017-12-01 08:13 | PCM.DC.SUM ---
Discharge Date and Diagnosis Date of Admission: 11/29/17 Date of Discharge: 11/30/17 - Primary Discharge Diagnosis #1 acute urethral bleed secondary to urological procedure #2 BPH #3 mechanical aortic heart valve #4 seizure disorder #5 cerebrovascular disease - Secondary Discharge Diagnosis Chronic Problems (Last Reviewed 11/29/17 @ 08:48 by Dawit Munoz MD) Diastolic dysfunction (Chronic) Seizure disorder (Chronic) History of stroke (Chronic) History of mechanical aortic valve replacement (Chronic) 1980; Revision AVR 1991 History of endocarditis (Chronic) Hyperlipidemia (Chronic) Aortic root dilatation (Chronic) 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 Patient had a urological procedure the day before for BPH. He had been on Lovenox prior to the procedure due to the fact he was taking Coumadin for mechanical heart valve. Evaluation in the ER revealed his Mena bag to have gross blood in it, patient was not hypotensive and his hemoglobin was 15. Patient was admitted to PCU for gross hematuria, labs are monitored, the patient was seen by urology. Patient was kept off anticoagulants. On 11/30/17, patient was seen and examined, the drainage in his Mena bag had cleared completely and there is no trace of blood. At that time his hemoglobin was 14.3, he was discharged home in stable condition on that date, his Coumadin was restarted the day of his admission and the day he was discharged, he was instructed to follow-up on 12/01/17 for an INR and follow-up with his supply technician. Discharge Activity: Return to Normal Activity Weight Bearing Status: Full weight bearing Home Medications: Medications to take at Discharge Cyanocobalamin [Vitamin B12] 1,000 mcg PO QODAY 02/15/13 Levetiracetam [Keppra] 1,500 mg PO QHS 02/15/13 Finasteride [Proscar] 5 mg PO QHS 06/02/14 antiarthritic combination no.2 900 mg tablet 900 mg PO TID ea 05/23/17 calcium carbonate 600 mg calcium (1,500 mg) tablet 600 mg PO BID tab 05/23/17 cholecalciferol (vitamin D3) 50,000 unit capsule 50,000 unit PO QWEEK 05/23/17 levetiracetam 1,000 mg tablet 1,000 mg PO DAILY 05/23/17 nsjuftny-nfs-solpv acid 0.4 mg-lycopene 300 mcg-lutein 250 mcg tablet 1 tab PO QDAY 05/23/17 phenytoin sodium extended 100 mg capsule 100 mg PO BID cap 05/23/17 alendronate 70 mg tablet 70 mg PO QWEEK 28 Days #4 08/05/17 rosuvastatin 5 mg tablet 5 mg PO QHS 90 Days #90 08/05/17 tamsulosin 0.4 mg capsule 0.4 mg PO BID 08/05/17 Cyanocobalamin [Vitamin B12] 1,000 mcg PO DAILY@0800 tablet 11/30/17 Primary Care Physician: Magdaleno Flores MD [Primary Care Provider] - Please follow up with your Primary Care Physician in: as scheduled Please Follow Up With: Kevin Andrews MD When: as scheduled Disposition: Home Minutes spent on discharge:: 32 Patient Condition:: Stable Medical Necessity - Tobacco Use Smoking Status: Never smoker Tobacco Use: Non-smoker Meaningful Use Info Meaningful Use Diagnoses (Choose all that apply): None applicable Code Visit Inpatient E&M: 32232 Disch Hosp
--- NOTE | 2017-12-01 08:20 | DS.PCM_ITS ---
Discharge Date and Diagnosis Date of Admission: 11/29/17 Date of Discharge: 11/30/17 - Primary Discharge Diagnosis #1 acute urethral bleed secondary to urological procedure #2 BPH #3 mechanical aortic heart valve #4 seizure disorder #5 cerebrovascular disease - Secondary Discharge Diagnosis Chronic Problems (Last Reviewed 11/29/17 @ 08:48 by Dawit Munoz MD) Diastolic dysfunction (Chronic) Seizure disorder (Chronic) History of stroke (Chronic) History of mechanical aortic valve replacement (Chronic) 1980; Revision AVR 1991 History of endocarditis (Chronic) Hyperlipidemia (Chronic) Aortic root dilatation (Chronic) 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 Patient had a urological procedure the day before for BPH. He had been on Lovenox prior to the procedure due to the fact he was taking Coumadin for mechanical heart valve. Evaluation in the ER revealed his Mena bag to have gross blood in it, patient was not hypotensive and his hemoglobin was 15. Patient was admitted to PCU for gross hematuria, labs are monitored, the patient was seen by urology. Patient was kept off anticoagulants. On 11/30/17, patient was seen and examined, the drainage in his Mena bag had cleared completely and there is no trace of blood. At that time his hemoglobin was 14.3 , he was discharged home in stable condition on that date, his Coumadin was restarted the day of his admission and the day he was discharged, he was instructed to follow-up on 12/01/17 for an INR and follow-up with his biometrician. Discharge Activity: Return to Normal Activity Weight Bearing Status: Full weight bearing Home Medications: Medications to take at Discharge Cyanocobalamin [Vitamin B12] 1,000 mcg PO QODAY 02/15/13 Levetiracetam [Keppra] 1,500 mg PO QHS 02/15/13 Finasteride [Proscar] 5 mg PO QHS 06/02/14 antiarthritic combination no.2 900 mg tablet 900 mg PO TID ea 05/23/17 calcium carbonate 600 mg calcium (1,500 mg) tablet 600 mg PO BID tab 05/23/17 cholecalciferol (vitamin D3) 50,000 unit capsule 50,000 unit PO QWEEK 05/23/17 levetiracetam 1,000 mg tablet 1,000 mg PO DAILY 05/23/17 thricuin-rzs-xijym acid 0.4 mg-lycopene 300 mcg-lutein 250 mcg tablet 1 tab PO QDAY 05/23/17 phenytoin sodium extended 100 mg capsule 100 mg PO BID cap 05/23/17 alendronate 70 mg tablet 70 mg PO QWEEK 28 Days #4 08/05/17 rosuvastatin 5 mg tablet 5 mg PO QHS 90 Days #90 08/05/17 tamsulosin 0.4 mg capsule 0.4 mg PO BID 08/05/17 Cyanocobalamin [Vitamin B12] 1,000 mcg PO DAILY@0800 tablet 11/30/17 Primary Care Physician: Magdaleno Flores MD [Primary Care Provider] - Please follow up with your Primary Care Physician in: as scheduled Please Follow Up With: Kevin Andrews MD When: as scheduled Disposition: Home Minutes spent on discharge:: 32 Patient Condition:: Stable Medical Necessity - Tobacco Use Smoking Status: Never smoker Tobacco Use: Non-smoker Meaningful Use Info Meaningful Use Diagnoses (Choose all that apply): None applicable Code Visit Inpatient E&M: 63147 Disch Hosp
--- NOTE | 2017-12-01 16:58 | CASEMGMT ---
RN CM Discharge F/U Phone Call LACE: 11 Strata: 3 Discharge date: 11/30/17 Call date: 12/01/17 Call time: [id number] Duration: 1 minute Admission dx: Hematuria Pt's answered phone and states pt has been doing good since discharge and she believes 'he's on an upward trend.' states no questions regarding medications or instructions and states pt plans to f/u. voices no further questions/concerns/needs at this time. This RN CM attempted to ask further questions but thanked this RN CM for call and then hung up. [facility] [employer]
== END 2017-11-30 11:15 | disposition home or self-care (01) | DRG 921 ==
LOC: ED 05:52 → PCU 06:43
PROVIDERS: Admitting Provider Hospitalist; Emergency Provider Emergency Medicine; Family Provider Family Medicine; PCP Family Medicine; Visit Provider Internal Medicine
DX: N99.820 Postprocedural hemorrhage of a genitourinary system organ or structure following a genitourinary system procedure (principal); N40.0 Benign prostatic hyperplasia without lower urinary tract symptoms; Z95.4 Presence of other heart-valve replacement; G40.909 Epilepsy, unspecified, not intractable, without status epilepticus; Z86.73 Personal history of transient ischemic attack (TIA), and cerebral infarction without residual deficits; E78.00 Pure hypercholesterolemia, unspecified; Z79.01 Long term (current) use of anticoagulants; Z79.899 Other long term (current) drug therapy
CPT/HCPCS: 36415; 36416; 80048; 81001; 85025; 85610; 85730; 97161; 97166; 99285; J7030; A4216

== ENCOUNTER 2017-12-01 10:34 | Outpatient (RCR) | payer MEDICARE, BC, SELFPAY ==
[2017-11-06 10:40] LABS: Prothrombin Time Fingerstick 21.8 SEC (11.9-14.4)
[2017-11-14 11:41] LABS: Prothrombin Time Fingerstick 21.5 SEC (11.9-14.4)
[2017-11-20 11:01] LABS: Prothrombin Time Fingerstick 27.6 SEC (11.9-14.4)
[2017-12-01 10:46] LABS: Prothrombin Time Fingerstick 33.1 SEC (11.9-14.4)
[2017-12-03 11:01] LABS: Prothrombin Time Fingerstick 35.5 SEC (11.9-14.4)
== END 2017-12-01 12:00 ==
LOC: MTLAB 10:34
PROVIDERS: Family Provider Family Medicine; PCP Nurse Practitioner Adult Health; Visit Provider Internal Medicine Cardiovascular Disease
DX: Z51.81 Encounter for therapeutic drug level monitoring (principal)
CPT/HCPCS: 36416; 85610

== ENCOUNTER → 2017-12-06 07:17 | Outpatient (CLI) | payer MEDICARE, BC, SELFPAY ==
[2017-12-06 10:07] LABS: Absolute Lymphocyte Count 1.74 X10^3/ul (0.83-4.51); Absolute Neutrophil Count 2.9 X10^3/uL (2.0-7.7); Basophil# 0.01 X10^3/uL; Basophil% 0.2 % (0-1); Eosinophil# 0.27 X10^3/uL; Eosinophils% 4.9 % (0-5); Hematocrit 42.9 % (40-54); Hemoglobin 14.2 g/dl (13.0-16.5); Lymphocyte # 1.74 X10^3/ul (4.0); Lymphocyte % 31.8 % (19-41); Mean Corp Hgb Conc 33.1 g/gl (32-36); Mean Corpuscular Hgb 31.7 pg (27.0-32.0); Mean Corpuscular Volume 95.8 fL (80-94); Monocyte# 0.58 X10^3/uL; Monocyte% 10.6 % (0-10); Neutrophil # 2.87 X10^3/uL (2.7-7.7); Neutrophil % 52.5 % (47-70); Platelet Count 147 K/mm3 (150-450); RBC Distribution Width CV 12.3 % (11.6-14.6); RBC Distribution Width SD 42.8 fl (35.1-43.9); Red Blood Count 4.48 M/mm3 (4.6-6.2); White Blood Count 5.5 K/mm3 (4.4-11.0)
[2017-12-06 10:08] LABS: POSITIVE COUNT NO; POSITIVE DIFFERENTIAL NO; POSITIVE MORPHOLOGY NO
[2017-12-06 10:23] LABS: Phenytoin (Dilantin) Level 5.6 mL (10.0-20.0)
[2017-12-06 10:26] LABS: ALB/GLOB Ratio 1.1 RATIO (0.9-2.4); AST(SGOT) 30 U/L (15-37); Alanine Aminotransfer ALT/SGPT 49 U/L (16-61); Albumin, Serum 3.6 g/dL (3.2-5.0); Alkaline Phosphatase 99 U/L (45-117); Anion Gap 9 (5-15); BUN 18 mg/dL (7-18); BUN/Creat Ratio 17.5 RATIO (10-20); Calcium,Total 8.2 mg/dL (8.5-10.1); Chloride 110 mmol/L (98-107); Cholesterol 141 mg/dL (200); Creatinine, Serum 1.03 mg/dL (0.70-1.30); EST Glomerular Filtration Rate 75 mL/min (>60); Est Glom Filt Rate - Afr Amer 91 mL/min (>60); Globulin 3.4 g/dL (2.2-4.2); Glucose 80 mg/dL (74-106); High Density Lipoprotein 64 mg/dL; Potassium 4.2 mmol/L (3.5-5.1); Sodium Level 144 mmol/L (136-145); Thyroid Stim Hormone (TSH) 1.87 uIU/mL (0.358-3.74); Triglycerides 85 mg/dL; Very Low Density Lipoprotein 17 mg/dL (5-40)
[2017-12-08 10:21] LABS: Vitamin B12 1433 pg/mL (211-911); Vitamin D,25 Hydroxy 100.2 ng/mL (29.95-100.01)
== END ==
PROVIDERS: Family Provider Family Medicine; PCP Family Medicine; Visit Provider Family Medicine
DX: E53.8 Deficiency of other specified B group vitamins (principal); I63.9 Cerebral infarction, unspecified; F32.9 Major depressive disorder, single episode, unspecified; M85.80 Other specified disorders of bone density and structure, unspecified site; I73.9 Peripheral vascular disease, unspecified; G40.909 Epilepsy, unspecified, not intractable, without status epilepticus
CPT/HCPCS: 36415; 80053; 80061; 80185; 82306; 82607; 84443; 85025

== ENCOUNTER 2017-12-24 11:33 | Outpatient (RCR) | payer MEDICARE, BC, SELFPAY ==
[2017-12-17 14:10] LABS: Prothrombin Time Fingerstick 39.6 SEC (11.9-14.4)
[2017-12-24 11:51] LABS: Prothrombin Time Fingerstick 39.6 SEC (11.9-14.4)
== END 2017-12-24 13:00 | disposition home or self-care (01) ==
LOC: MTLAB 11:33
PROVIDERS: Family Provider Family Medicine; PCP Family Medicine; Visit Provider Internal Medicine Cardiovascular Disease
DX: Z79.01 Long term (current) use of anticoagulants (principal); Z79.899 Other long term (current) drug therapy; Z95.2 Presence of prosthetic heart valve
CPT/HCPCS: 36416; 85610

== ENCOUNTER → 2018-01-06 18:20 | Outpatient (CLI) | payer MEDICARE, BC, SELFPAY | PROVIDERS: Visit Provider Urology | DX: R82.99 Other abnormal findings in urine (principal) | CPT/HCPCS: 87077; 87086; 87088; 87186 ==

== ENCOUNTER 2018-01-07 11:54 | Outpatient (RCR) | payer MEDICARE, BC, SELFPAY ==
[2018-01-07 12:10] LABS: Prothrombin Time Fingerstick 35.4 SEC (11.9-14.4)
== END 2018-01-07 13:00 | disposition home or self-care (01) ==
LOC: MTLAB 11:54
PROVIDERS: Family Provider Family Medicine; PCP Family Medicine; Visit Provider Internal Medicine Cardiovascular Disease
DX: Z79.01 Long term (current) use of anticoagulants (principal); Z95.2 Presence of prosthetic heart valve; Z98.890 Other specified postprocedural states
CPT/HCPCS: 36416; 85610

== ENCOUNTER → 2018-01-20 17:08 | Outpatient (CLI) | payer MEDICARE, BC, SELFPAY | PROVIDERS: Family Provider Family Medicine; PCP Family Medicine; Visit Provider Urology | DX: R82.99 Other abnormal findings in urine (principal) | CPT/HCPCS: 87086 ==

== ENCOUNTER 2018-02-04 11:42 | Outpatient (RCR) | payer MEDICARE, BC, SELFPAY | END 2018-02-04 13:00 | disposition home or self-care (01) | LOC: MTLAB 11:42 | PROVIDERS: Family Provider Family Medicine; PCP Family Medicine; Referring Provider Internal Medicine Cardiovascular Disease; Visit Provider Internal Medicine Cardiovascular Disease | DX: Z79.01 Long term (current) use of anticoagulants (principal); Z95.2 Presence of prosthetic heart valve; Z98.890 Other specified postprocedural states | CPT/HCPCS: 36416; 85610 ==

== ENCOUNTER 2018-03-02 12:32 | Outpatient (RCR) | payer MEDICARE, BC, SELFPAY ==
[2018-03-02 12:45] LABS: Prothrombin Time Fingerstick 40.1 SEC (11.9-14.4)
== END 2018-03-02 14:00 | disposition home or self-care (01) ==
LOC: MTLAB 12:32
PROVIDERS: Family Provider Family Medicine; PCP Family Medicine; Referring Provider Internal Medicine Cardiovascular Disease; Visit Provider Internal Medicine Cardiovascular Disease
DX: Z79.01 Long term (current) use of anticoagulants (principal); Z95.2 Presence of prosthetic heart valve; Z98.890 Other specified postprocedural states
CPT/HCPCS: 36416; 85610

== ENCOUNTER 2018-04-02 07:24 | Outpatient (RCR) | payer MEDICARE, BC, SELFPAY ==
[2018-03-16 11:36] LABS: Prothrombin Time Fingerstick 23.6 SEC (11.9-14.4)
[2018-03-23 11:41] LABS: Prothrombin Time Fingerstick 37.1 SEC (11.9-14.4)
[2018-03-31 11:56] LABS: Prothrombin Time Fingerstick 51.2 SEC (11.9-14.4)
[2018-04-02 08:26] LABS: International Normalized Ratio 2.3; Prothrombin Time (Protime)PT. 25.6 SECONDS (11.7-14.9)
[2018-04-02 09:20] LABS: Hematocrit 48.4 % (40-54); Hemoglobin 16.3 g/dl (13.0-16.5); Mean Corp Hgb Conc 33.7 g/gl (32-36); Mean Corpuscular Volume 95.1 fL (80-94); Mean Platelet Vol. 12.3 fl (6.2-12.0); Platelet Count 130 K/mm3 (150-450); RBC Distribution Width CV 12.5 % (11.6-14.6); RBC Distribution Width SD 42.2 fl (35.1-43.9); Red Blood Count 5.09 M/mm3 (4.6-6.2)
[2018-04-02 09:26] LABS: Scan Indicated on CBC? Y/N NO
[2018-04-02 09:49] LABS: ALB/GLOB Ratio 1.1 RATIO (0.9-2.4); AST(SGOT) 26 U/L (15-37); Alanine Aminotransfer ALT/SGPT 28 U/L (16-61); Albumin, Serum 3.9 g/dL (3.2-5.0); Alkaline Phosphatase 93 U/L (45-117); Anion Gap 4 (5-15); BUN 15 mg/dL (7-18); BUN/Creat Ratio 15.7 RATIO (10-20); Calcium,Total 8.4 mg/dL (8.5-10.1); Chloride 107 mmol/L (98-107); Cholesterol 152 mg/dL (200); Creatinine, Serum 0.96 mg/dL (0.70-1.30); EST Glomerular Filtration Rate 81 mL/min (>60); Est Glom Filt Rate - Afr Amer 98 mL/min (>60); Globulin 3.6 g/dL (2.2-4.2); Glucose 74 mg/dL (74-106); High Density Lipoprotein 64 mg/dL; Potassium 4.1 mmol/L (3.5-5.1); Protein, Total 7.5 g/dL (6.4-8.2); Sodium Level 140 mmol/L (136-145); Triglycerides 130 mg/dL; Very Low Density Lipoprotein 26 mg/dL (5-40)
[2018-04-02 10:21] LABS: Vitamin B12 1138 pg/mL (211-911); Vitamin D,25 Hydroxy 84.4 ng/mL (29.95-100.01)
== END 2018-04-02 08:00 | disposition home or self-care (01) ==
LOC: MTLAB 07:24
PROVIDERS: Family Provider Family Medicine; PCP Family Medicine; Referring Provider Internal Medicine Cardiovascular Disease; Visit Provider Internal Medicine Cardiovascular Disease
DX: Z79.01 Long term (current) use of anticoagulants (principal); Z98.890 Other specified postprocedural states; Z95.2 Presence of prosthetic heart valve; M85.80 Other specified disorders of bone density and structure, unspecified site; I71.6 Thoracoabdominal aortic aneurysm, without rupture; E53.8 Deficiency of other specified B group vitamins
CPT/HCPCS: 36415; 36416; 80053; 80061; 82306; 82607; 84443; 85027; 85610

== ENCOUNTER 2018-05-04 13:34 | Outpatient (RCR) | payer MEDICARE, BC, SELFPAY ==
[2018-04-15 11:55] LABS: Prothrombin Time Fingerstick 41.8 SEC (11.9-14.4)
[2018-04-24 14:11] LABS: Prothrombin Time Fingerstick 19.8 SEC (11.9-14.4)
[2018-05-01 14:16] LABS: Prothrombin Time Fingerstick 23.6 SEC (11.9-14.4)
[2018-05-04 13:46] LABS: Prothrombin Time Fingerstick 27.9 SEC (11.9-14.4)
== END 2018-05-04 14:00 | disposition home or self-care (01) ==
LOC: MTLAB 13:34
PROVIDERS: Family Provider Family Medicine; PCP Family Medicine; Referring Provider Internal Medicine Cardiovascular Disease; Visit Provider Internal Medicine Cardiovascular Disease
DX: Z79.01 Long term (current) use of anticoagulants (principal); Z98.890 Other specified postprocedural states; Z95.2 Presence of prosthetic heart valve
CPT/HCPCS: 36416; 85610; 87077; 87086; 87088; 87186

== ENCOUNTER → 2018-06-04 08:56 | Outpatient (CLI) | payer MEDICARE, BC, SELFPAY ==
--- NOTE | 2018-06-04 08:58 | RAD_ITS ---
STUDY: X-RAY - RIGHT SHOULDER REASON FOR EXAM: Male, 77 years old. Pain. Recent fall. TECHNIQUE: 4 view(s) of the shoulder. COMPARISON: None. FINDINGS: There is moderate degenerative arthrosis of the glenohumeral articulation. There is degenerative arthrosis of the acromioclavicular joint without inferior osseous spur formation. Normal acromion. There is no acute fracture, dislocation or destructive osseous pathology. Normal humeral head and visualized proximal humerus. The soft tissue structures are unremarkable. Is evidence of median sternotomy. Normal visualized pulmonary apex. RAD/Shoulder min 2 Views IMPRESSION: Degenerative changes of the right shoulder without fracture or dislocation Electronically Signed: Justen Norton DO at 23:16 EST Tel [phone], Service support ,
== END ==
PROVIDERS: Family Provider Family Medicine; PCP Family Medicine; Referring Provider Orthopaedic Surgery; Visit Provider Orthopaedic Surgery
DX: M25.511 Pain in right shoulder (principal); Z95.2 Presence of prosthetic heart valve; Z79.01 Long term (current) use of anticoagulants
CPT/HCPCS: 36416; 73030; 85610

== ENCOUNTER 2018-06-04 09:47 | Outpatient (RCR) | payer MEDICARE, BC, SELFPAY ==
[2018-05-08 14:00] LABS: Prothrombin Time Fingerstick 19.1 SEC (11.9-14.4)
[2018-05-11 14:25] LABS: Prothrombin Time Fingerstick 25.2 SEC (11.9-14.4)
[2018-05-21 12:15] LABS: Prothrombin Time Fingerstick 35.6 SEC (11.9-14.4)
[2018-06-04 10:00] LABS: Prothrombin Time Fingerstick 46.5 SEC (11.9-14.4)
== END 2018-06-04 11:00 | disposition home or self-care (01) ==
LOC: MTLAB 09:47
PROVIDERS: Family Provider Family Medicine; PCP Family Medicine; Referring Provider Internal Medicine Cardiovascular Disease; Visit Provider Internal Medicine Cardiovascular Disease
DX: Z79.01 Long term (current) use of anticoagulants (principal); Z98.890 Other specified postprocedural states; Z95.2 Presence of prosthetic heart valve
CPT/HCPCS: 36416; 85610

== ENCOUNTER → 2018-06-26 13:18 | Outpatient (CLI) | payer MEDICARE, BC, SELFPAY ==
[2018-06-05 13:44] VITALS: BMI 26.2
--- NOTE | 2018-06-26 13:20 | CT_ITS ---
STUDY: CT CHEST WITH CONTRAST REASON FOR EXAM: Male, 77 years old. Thoracic aortic aneurysm. RADIATION DOSAGE (If Supplied By Facility): CTDIvol = ( 13.65 ) mGy, DLP = ( 384.84 ) mGycm TECHNIQUE: Transaxial imaging was performed following intravenous administration of 100ML ml of Isovue 300 contrast material. Coronal and sagittal reformatted images were created. Individualized dose optimization techniques were used for this CT. COMPARISON: None FINDINGS: There is no evidence of pulmonary embolus. There are no pulmonary infiltrates or pleural effusions. There is atelectasis of the lung bases. There is no pneumothorax. The heart and pericardium are within normal limits. There is no thoracic lymphadenopathy. There is no evidence of thoracic aortic dissection. There is aneurysmal dilatation of the ascending aorta, measuring 4.8 x 4.6 cm at the level of the main pulmonary artery. The aortic arch and descending thoracic aorta are normal in caliber. Images through the upper abdomen demonstrate renal cysts. There are no destructive osseous lesions. CT/Chest WITH Contrast IMPRESSION: Aneurysmal dilatation of the ascending aorta, measuring up to 4.8 x 4.6 cm. Normal caliber aortic arch and descending thoracic aorta. No evidence of thoracic aortic dissection. No evidence of pulmonary embolus. Bibasilar atelectasis. Otherwise, clear lungs. Electronically Signed: Ezekiel Mercado, at 14:24 EST Tel , Service support ,
[2018-06-26 13:46] LABS: CREATININE FINGERSTICK 0.9 mg/dL (0.70-1.30)
== END ==
PROVIDERS: Family Provider Family Medicine; PCP Family Medicine; Referring Provider Internal Medicine Cardiovascular Disease; Visit Provider Internal Medicine Cardiovascular Disease
DX: I71.2 Thoracic aortic aneurysm, without rupture (principal); I77.810 Thoracic aortic ectasia; Z95.2 Presence of prosthetic heart valve; Z79.01 Long term (current) use of anticoagulants; Z98.890 Other specified postprocedural states
CPT/HCPCS: 36416; 71260; 85610; Q9967

== ENCOUNTER 2018-06-26 13:54 | Outpatient (RCR) | payer MEDICARE, BC, SELFPAY ==
[2018-06-05 13:44] VITALS: BMI 26.2
[2018-06-19 13:51] LABS: Prothrombin Time Fingerstick 19.4 SEC (11.9-14.4)
[2018-06-26 14:11] LABS: Prothrombin Time Fingerstick 26.4 SEC (11.9-14.4)
== END 2018-07-02 13:43 | disposition home or self-care (01) ==
LOC: LAB 13:54
PROVIDERS: Family Provider Family Medicine; PCP Family Medicine; Referring Provider Internal Medicine Cardiovascular Disease; Visit Provider Internal Medicine Cardiovascular Disease
DX: Z79.01 Long term (current) use of anticoagulants (principal); Z98.890 Other specified postprocedural states; Z95.2 Presence of prosthetic heart valve
CPT/HCPCS: 36416; 85610

== ENCOUNTER → 2018-07-02 17:48 | Outpatient (CLI) | payer MEDICARE, BC, SELFPAY ==
[2018-06-05 13:44] VITALS: BMI 26.2
== END ==
PROVIDERS: Family Provider Family Medicine; PCP Family Medicine; Referring Provider Nurse Practitioner Family; Visit Provider Nurse Practitioner Family
DX: R35.0 Frequency of micturition (principal)
CPT/HCPCS: 87077; 87086; 87088; 87186

== ENCOUNTER → 2018-07-13 11:56 | Outpatient (CLI) | payer MEDICARE, BC, SELFPAY ==
[2018-06-05 13:44] VITALS: BMI 26.2
--- NOTE | 2018-07-13 12:04 | RAD_ITS ---
STUDY: X-RAY - RIGHT FOOT CLINICAL: Male, 77 years old. No injury. Right foot pain. TECHNIQUE: 3 view(s) of the foot. COMPARISON: None. FINDINGS: Severe osteopenia. 1st digit severe hallux valgus with subluxation, chronic. Bunion. Mild to moderate DJD interphalangeal joints of each digit. Mild DJD midfoot tarsometatarsal articulations. Preserved arch. Unremarkable ankle joint and subtalar joint. Severe peripheral arterial calcifications extending from the tibioperoneal arteries to the distal foot. Otherwise unremarkable soft tissues. No apparent soft tissue swelling. RAD/Foot min 3 Views IMPRESSION: Severe peripheral arterial disease. 1st digit severe hallux valgus with bunion. Electronically Signed: Ji Keita MD at 14:50 EDT Tel , Service support ,
== END ==
PROVIDERS: Family Provider Family Medicine; PCP Family Medicine; Referring Provider Family Medicine; Visit Provider Family Medicine
DX: M72.2 Plantar fascial fibromatosis (principal)
CPT/HCPCS: 73630

== ENCOUNTER 2018-07-24 10:21 | Outpatient (RCR) | payer MEDICARE, BC, SELFPAY ==
[2018-06-05 13:44] VITALS: BMI 26.2
[2018-07-03 14:01] LABS: Prothrombin Time Fingerstick 40.9 SEC (11.9-14.4)
[2018-07-09 11:36] LABS: Prothrombin Time Fingerstick 31.5 SEC (11.9-14.4)
[2018-07-17 12:20] LABS: Prothrombin Time Fingerstick 36.5 SEC (11.9-14.4)
[2018-07-24 10:41] LABS: Prothrombin Time Fingerstick 38.8 SEC (11.9-14.4)
== END 2018-07-24 11:00 | disposition home or self-care (01) ==
LOC: LAB 10:21
PROVIDERS: Family Provider Family Medicine; PCP Family Medicine; Referring Provider Internal Medicine Cardiovascular Disease; Visit Provider Internal Medicine Cardiovascular Disease
DX: Z79.01 Long term (current) use of anticoagulants (principal); Z98.890 Other specified postprocedural states; Z95.2 Presence of prosthetic heart valve
CPT/HCPCS: 36416; 85610

== ENCOUNTER 2018-08-26 07:19 | Emergency (ER) | payer MEDICARE, BC, SELFPAY ==
[2018-06-05 13:44] VITALS: BMI 26.2
[2018-08-26 07:20] VITALS: BP 123/70; PULSE 67; RESP 17; TEMP 36.4; O2SAT 97; BMI 24.1
[2018-08-26 08:02] LABS: Color, Urine Yellow (Yellow); Glucose, Dipstick Normal (Normal); Ketone-Dipstick Negative (Negative); Leukocyte Esterase-Dipstick 500 /ul (Negative); Nitrite-Dipstick Positive (Negative); Occult Blood-Urine 150 /ul (Negative); Protein-Dipstick 500 mg/dl (Negative); Specific Gravity, Urine 1.015 (1.002-1.030); Urine Bilirubin Dipstick Negative (Negative); Urine Clarity Cloudy (Clear); Urine Urobilinogen Normal (Normal)
[2018-08-26 08:21] LABS: White Blood Cells >100 SEEN /hpf (0-5)
[2018-08-26 08:24] LABS: Red Blood Cells-Urine 0-5 SEEN /hpf (0-5); Squamous Epithelial Cells - UA 0-5 SEEN /hpf (0-5)
[2018-08-26 08:25] LABS: Bacteria 4+ /hpf (None Seen); Mucous, Urine 1+ /hpf (<or=2+)
[2018-08-26] MEDS: Lidocaine Jelly 2% 20 ML Syringe (URO-JET) 20 APPLIC TOPICAL (08:34)
--- NOTE | 2018-08-26 08:56 | ED.VISSUMM ---
- ER Visit Summary Date of Service: 08/26/18 Chief Complaint: Unable to urinate History of Present Illness: The patient is a 78 M history of prior stroke with left hand residual weakness artificial cardiac valve on Coumadin. Patient states his been unable to urinate since last night. He has had issues with urinary frequency and retention in the past. He UTI in June. And he had a uro-lift procedure done by Dr. Nicholas Sy around a year ago. Since that time he is done well. He has not needed a Mena catheter since the procedure. He denies any fever or dysuria. He denies any gross hematuria. Physical Examination: Well-appearing older male. Vital signs are stable and afebrile. He is in no distress. at bedside. H EENT exam unremarkable. Neck nontender. Lungs clear to auscultation bilaterally. Heart regular rhythm rate about 78 with a systolic murmur. Abdomen is soft and nontender. Normal bowel sounds no peritoneal signs. External exam unremarkable with a circumcised penis. Patient is moving all 4 extremities. He does have some fine motor movement loss in his left hand which is chronic. He does have bilateral vice president payer strength and dorsi and plantar flexion. Neurologically is awake and alert. Test Results: Mena catheter placed by nursing staff. Urinalysis shows nitrates positive greater than 100 white cells and 4+ bacteria. A culture will be sent. The last culture from June was sensitive to both the Keflex and Levaquin. Emergency Department Course and Treatment: Mena catheter will remain in place. He will be started on Keflex 500 mg 4 times a day for 10 days. Urine culture sent. And follow-up with his urologist. Treatment Plan: Keflex for 10 days. Patient and will be instructed to get his Coumadin level rechecked within the next 1-2 weeks due to being on the antibiotic. Disposition: Discharge Impression: Acute urinary retention Acute UTI This note was generated with [employer] dictation software. It may contain incorrect words, spelling, and punctuation that were not noted in review of the chart prior to signing ED Disposition - Plan for ED Patient: Referrals: Magdaleno Flores MD [Primary Care Provider] -
--- NOTE | 2018-08-26 09:00 | ED.DCSUM_ITS ---
- ER Visit Summary Date of Service: 08/26/18 Chief Complaint: Unable to urinate History of Present Illness: The patient is a 78 M history of prior stroke with left hand residual weakness artificial cardiac valve on Coumadin. Patient states his been unable to urinate since last night. He has had issues with urinary frequency and retention in the past. He UTI in June. And he had a uro-lift procedure done by Dr. Nicholas Sy around a year ago. Since that time he is done well. He has not needed a Mena catheter since the procedure. He denies any fever or dysuria. He denies any gross hematuria. Physical Examination: Well-appearing older male. Vital signs are stable and afebrile. He is in no distress. at bedside. H EENT exam unremarkable. Neck nontender. Lungs clear to auscultation bilaterally. Heart regular rhythm rate about 78 with a systolic murmur. Abdomen is soft and nontender. Normal bowel sounds no peritoneal signs. External exam unremarkable with a circumcised penis. Patient is moving all 4 extremities. He does have some fine motor movement loss in his left hand which is chronic. 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 Neurologically is awake and alert. Test Results: Mena catheter placed by nursing staff. Urinalysis shows nitrates positive greater than 100 white cells and 4+ bacteria. A culture will be sent. The last culture from June was sensitive to both the Keflex and Levaquin. Emergency Department Course and Treatment: Mena catheter will remain in place. He will be started on Keflex 500 mg 4 times a day for 10 days. Urine culture sent. And follow-up with his urologist. Treatment Plan: Keflex for 10 days. Patient and will be instructed to get his Coumadin level rechecked within the next 1-2 weeks due to being on the antibiotic. Disposition: Discharge Impression: Acute urinary retention Acute UTI This note was generated with [employer] dictation software. It may contain incorrect words, spelling, and punctuation that were not noted in review of the chart prior to signing ED Disposition - Plan for ED Patient: Referrals: Magdaleno Flores MD [Primary Care Provider] -
--- NOTE | 2018-08-26 09:00 | ED.DEP ---
ED Disposition - Plan for ED Patient: Disposition: Home or Assisted Living Instructions: ED UTI Cystitis Male, ED Retention Urinary Male Prescriptions: Cephalexin [Keflex] 500 mg PO Q6 #40 cap Referrals: Kevin Andrews MD [STAFF PHYSICIAN] - As soon as possible Additional Instructions: Keflex 1 pill 4 times a day for 10 days. I checked her last urine culture in the bacteria was sensitive to this antibiotic. Due to the antibiotic you need to have your Coumadin level rechecked in the next 7-14 days. Follow-up with your urologist as soon as possible.
[2018-08-26] MEDS: Cephalexin 250 MG Capsule 500 MG PO (09:14)
== END 2018-08-26 09:15 | disposition home or self-care (01) ==
PROVIDERS: Emergency Provider Emergency Medicine; Family Provider Family Medicine; PCP Family Medicine
DX: R33.9 Retention of urine, unspecified (principal); N30.90 Cystitis, unspecified without hematuria; I69.354 Hemiplegia and hemiparesis following cerebral infarction affecting left non-dominant side; Z87.440 Personal history of urinary (tract) infections; Z79.01 Long term (current) use of anticoagulants
CPT/HCPCS: 51702; 81001; 87077; 87086; 87088; 87186; 99285

== ENCOUNTER 2018-08-31 09:13 | Outpatient (RCR) | payer MEDICARE, BC, SELFPAY ==
[2018-06-05 13:44] VITALS: BMI 26.2
[2018-08-07 10:51] LABS: Prothrombin Time Fingerstick 43.9 SEC (11.9-14.4)
[2018-08-31 09:41] LABS: Prothrombin Time Fingerstick 64.2 SEC (11.9-14.4)
[2018-08-31 10:10] LABS: Prothrombin Time (Protime)PT. 49.4 SECONDS (11.7-14.9)
[2018-08-31 10:16] LABS: International Normalized Ratio 5.3
== END 2018-09-01 16:00 | disposition home or self-care (01) ==
LOC: LAB 09:13
PROVIDERS: Family Provider Family Medicine; PCP Family Medicine; Referring Provider Internal Medicine Cardiovascular Disease; Visit Provider Internal Medicine Cardiovascular Disease
DX: Z79.01 Long term (current) use of anticoagulants (principal); Z98.890 Other specified postprocedural states; Z95.2 Presence of prosthetic heart valve
CPT/HCPCS: 36415; 36416; 85610

== ENCOUNTER 2018-09-03 07:42 | Emergency (ER) | payer MEDICARE, BC, SELFPAY ==
[2018-09-03 07:42] VITALS: BMI 24.1
[2018-09-03 07:43] VITALS: BP 116/73; PULSE 77; RESP 16; TEMP 36.4; O2SAT 99; BMI 24.3
--- NOTE | 2018-09-03 08:08 | RAD_ITS ---
STUDY: X-RAY - RIGHT FOOT CLINICAL: Male, 78 years old. One-week history of pain. No known injury. TECHNIQUE: 3 view(s) of the foot. COMPARISON: None. FINDINGS: Normal talus, calcaneus, and tarsal bones. Normal visualized subtalar, talonavicular, calcaneocuboid, tarsal and tarsometatarsal articulations. Normal metatarsi. There is degenerative arthrosis of the metatarsophalangeal joint of the hallux with a hallux valgus deformity. There is evidence of a subluxation at the first metatarsophalangeal joint. Normal tibial and fibular sesamoid bones. Normal interphalangeal joint of the great toe. Normal phalanges of the great toe. Normal second through fifth metatarsophalangeal joints. Normal interphalangeal joints and phalanges of the lesser toes. Soft tissue swelling. Atherosclerotic calcification. RAD/Foot min 3 Views IMPRESSION: Vitaly valgus deformity with subluxation at the first metatarsophalangeal joint. Electronically Signed: Ricky Rahman, at 9:12 EDT , Service support ,
--- NOTE | 2018-09-03 08:08 | RAD_ITS ---
STUDY: X-RAY - RIGHT ANKLE REASON FOR EXAM: Male, 78 years old. One-week history of a pain. No history of trauma. TECHNIQUE: 3 view(s) of the ankle. COMPARISON: None. FINDINGS: Normal visualized distal tibia and fibula. Normal medial and lateral malleoli. Normal tibiotalar articulation and ankle mortise. Normal visualized talus and calcaneus. The visualized subtalar, talonavicular, calcaneocuboid and tarsal articulations are normal. There are atherosclerotic calcifications. Soft tissue swelling overlying the lateral malleolus. RAD/Ankle min 3 Views IMPRESSION: Soft tissue swelling. No fracture is seen. Electronically Signed: Ricky Rahman, at 9:03 EDT , Service support ,
--- NOTE | 2018-09-03 08:12 | ED.VISSUMM ---
- ER Visit Summary Date of Service: 09/03/18 Chief Complaint: [] Right heel pain for about a week History of Present Illness: The patient is a 78 M [] he is chief complaint is right heel pain for about 1 week the pain sometimes radiates to the right ankle, he has past history of arthritis gout, right knee brace related to [id number] arthritis, stroke with subsequent seizure disorder, CABG valve replacement Coumadin therapy, recent UTI with elevation of INR to 5. His general health has been stable but he reports for about 1 week he has had pain primarily focused in the right heel that radiates to the right ankle he has been wearing a knee brace for some time he is been seen extensively for his orthopedic conditions by and other orthopedic surgeons, by podiatry currently under their care indicates the heel pain persisted he came in today for evaluation Physical Examination: [] Vital signs within normal range General, no distress resting comfortably HEENT is generally unremarkable The neck is supple no adenopathy Cardiovascular, regular rate and rhythm, he has had prominent heart tones Lungs, clear bilateral Abdomen, soft nontender, Extremities, no clubbing cyanosis or edema, he is wearing a knee brace Velcro to the right knee, he complains of pain to palpation of the right heel he also has some vague pain to palpation of the right and left medial malleolus there is some very minimal swelling he is able dorsi and plantarflex lightly brushing his skin causes discomfort dorsalis pedis pulses intact the foot is well-perfused good capillary refill no skin breakdown no signs of infection no signs of trauma to the heel or the ankle or the foot in the area, there is no fluctuance or crepitance, he does have pain with palpation directly over the heel Neurologic, awake alert answering questions appropriately moving all 4 extremities Test Results: [] Emergency Department Course and Treatment: [] Given his age and his complaints and all the above x-rays were obtained [place] for pain he is asking his INR be checked, the differential is extensive there is no signs of joint infection he does have a history of gout and his history and physical exam would be supportive of that diagnosis, it is unclear why his INR is have remained in the 5 range indicates he is been told by his cardiology team that they wanted and around 2.5-3 he did hold the Coumadin for a few days despite that the INR remained at 5 Treatment Plan: [] The x-rays of the ankle and the foot show nothing acute soft tissue swelling see those reports, the INR is 4, the family is concerned about the above INR as he is been holding his Coumadin intermittently have asked him to hold the Coumadin for 1 more day have a recheck tomorrow follow-up with outpatient providers related to the INR, I explained to them with regards to the lower extremity his symptoms and history consistent with gout he has a history of that there is nothing to suggest an infection or fracture he has orthopedic surgeons and podiatry he is currently under the care of, of asked to see any of those providers orthopedics or podiatry in the next few days with an [employer] for pain we offer him crutches ice elevation he will return for change in symptoms Disposition: [] Home stable Impression: [] Right lower extremity pain, history of gout, INR 4 This note was generated with [employer] dictation software. It may contain incorrect words, spelling, and punctuation that were not noted in review of the chart prior to signing ED Disposition - Plan for ED Patient: Referrals: Magdaleno Flores MD [Primary Care Provider] -
--- NOTE | 2018-09-03 08:15 | ED.DCSUM_ITS ---
- ER Visit Summary Date of Service: 09/03/18 Chief Complaint: [] Right heel pain for about a week History of Present Illness: The patient is a 78 M [] he is chief complaint is right heel pain for about 1 week the pain sometimes radiates to the right ankle, he has past history of arthritis gout, right knee brace related to [id number] arthritis, stroke with subsequent seizure disorder, CABG valve replacement Coumadin therapy, recent UTI with elevation of INR to 5. His general health has been stable but he reports for about 1 week he has had pain primarily focused in the right heel that radiates to the right ankle he has been wearing a knee brace for some time he is been seen extensively for his ort hopedic conditions by and other orthopedic surgeons, by podiatry currently under their care indicates the heel pain persisted he came in today for evaluation Physical Examination: [] Vital signs within normal range General, no distress resting comfortably HEENT is generally unremarkable The neck is supple no adenopathy Cardiovascular, regular rate and rhythm, he has had prominent heart tones Lungs, clear bilateral Abdomen, soft nontender, Extremities, no clubbing cyanosis or edema, he is wearing a knee brace Velcro to the right knee, he complains of pain to palpation of the right heel he also has some vague pain to palpation of the right and left medial malleolus there is some very minimal swelling he is able dorsi and plantarflex lightly brushing his skin causes discomfort dorsalis pedis pulses intact the foot is well-perfused good capillary refill no skin breakdown no signs of infection no signs of trauma to the heel or the ankle or the foot in the area, there is no fluctuance or crepitance, he does have pain with palpation directly over the heel Neurologic, awake alert answering questions appropriately moving all 4 extremities Test Results: [] Emergency Department Course and Treatment: [] Given his age and his complaints and all the above x-rays were obtained [place] for pain he is asking his INR be checked, the differential is extensive there is no signs of joint infection he does have a history of gout and his history and physical exam would be supportive of that diagnosis, it is unclear why his INR is have remained in the 5 range indicates he is been told by his cardiology team that they wanted and around 2.5-3 he did hold the Coumadin for a few days despite that the INR remained at 5 Treatment Plan: [] The x-rays of the ankle and the foot show nothing acute soft tissue swelling see those reports, the INR is 4, the family is concerned about the above INR as he is been holding his Coumadin intermittently have asked him to hold the Coumadin for 1 more day have a recheck tomorrow follow-up with outpatient providers related to the INR, I explained to them with regards to the lower extremity his symptoms and history consistent with gout he has a history of that there is nothing to suggest an infection or fracture he has orthopedic surgeons and podiatry he is currently under the care of, of asked to see any of those providers orthopedics or podiatry in the next few days with an [employer] for pain we offer him crutches ice elevation he will return for change in symptoms Disposition: [] Home stable Impression: [] Right lower extremity pain, history of gout, INR 4 This note was generated with [employer] dictation software. It may contain incorrect words, spelling, and punctuation that were not noted in review of the chart prior to signing ED Disposition - Plan for ED Patient: Referrals: Magdaleno Flores MD [Primary Care Provider] -
[2018-09-03] MEDS: HYDROcodone Bitartrate/Apap 5/325 Tablet PO (08:43)
[2018-09-03 09:17] LABS: Prothrombin Time (Protime)PT. 40.2 SECONDS (11.7-14.9)
[2018-09-03 09:24] LABS: International Normalized Ratio 4.1
--- NOTE | 2018-09-03 09:34 | ED.DEP ---
ED Disposition - Plan for ED Patient: Instructions: ED Sprain Ankle W X Ray, Treating Gout Attacks Referrals: Magdaleno Flores MD [Primary Care Provider] - Additional Instructions: Please hold your Coumadin for at least one day, have your INR checked tomorrow follow-up with your outpatient providers for your INR and your orthopedic and podiatry providers for your foot and ankle
--- NOTE | 2018-09-03 09:39 | ED.DEP ---
ED Disposition - Plan for ED Patient: Instructions: Treating Gout Attacks, ED Sprain Ankle W X Ray Prescriptions: Hydrocodone Bitart/Apap 5-325 [[place] 5MG-325MG] 1 tab PO Q4H PRN PRN 2 Days #10 tab PRN Reason: Pain Referrals: Magdaleno Flores MD [Primary Care Provider] - Additional Instructions: Please hold your Coumadin for at least one day, have your INR checked tomorrow follow-up with your outpatient providers for your INR and your orthopedic and podiatry providers for your foot and ankle
[2018-09-03 11:22] VITALS: BP 145/85; PULSE 62; RESP 17
== END 2018-09-03 11:23 | disposition home or self-care (01) ==
LOC: ED 08:31
PROVIDERS: Emergency Provider Emergency Medicine; Family Provider Family Medicine; PCP Family Medicine
DX: M79.671 Pain in right foot (principal); M25.571 Pain in right ankle and joints of right foot; M10.9 Gout, unspecified; G40.909 Epilepsy, unspecified, not intractable, without status epilepticus; Z86.73 Personal history of transient ischemic attack (TIA), and cerebral infarction without residual deficits; Z87.440 Personal history of urinary (tract) infections; Z95.1 Presence of aortocoronary bypass graft; Z79.01 Long term (current) use of anticoagulants; Z79.899 Other long term (current) drug therapy
CPT/HCPCS: 73610; 73630; 85610; 99283

== ENCOUNTER 2018-09-29 11:04 | Outpatient (RCR) | payer MEDICARE, BC, SELFPAY ==
[2018-09-02 09:28] VITALS: BMI 26.2
[2018-09-02 09:55] LABS: Prothrombin Time Fingerstick 60.7 SEC (11.9-14.4)
[2018-09-04 12:01] LABS: Prothrombin Time Fingerstick 57.2 SEC (11.9-14.4)
[2018-09-04 12:40] LABS: International Normalized Ratio 4.3
[2018-09-07 12:46] LABS: Prothrombin Time Fingerstick 15.3 SEC (11.9-14.4)
[2018-09-09 14:37] LABS: International Normalized Ratio 1.5; Prothrombin Time (Protime)PT. 17.8 SECONDS (11.7-14.9)
[2018-09-11 10:15] LABS: Prothrombin Time Fingerstick 26.3 SEC (11.9-14.4)
[2018-09-14 11:51] LABS: Prothrombin Time Fingerstick 36.9 SEC (11.9-14.4)
[2018-09-21 11:21] LABS: Prothrombin Time Fingerstick 49.3 SEC (11.9-14.4)
[2018-09-21 12:41] LABS: Prothrombin Time (Protime)PT. 45.1 SECONDS (11.7-14.9)
[2018-09-21 12:43] LABS: International Normalized Ratio 4.7
[2018-09-29 11:15] LABS: Prothrombin Time Fingerstick 42.3 SEC (11.9-14.4)
[2018-09-29 12:11] LABS: International Normalized Ratio 3.8; Prothrombin Time (Protime)PT. 37.4 SECONDS (11.7-14.9)
== END 2018-09-29 12:00 | disposition home or self-care (01) ==
LOC: MTLAB 11:04
PROVIDERS: Family Provider Family Medicine; PCP Family Medicine; Referring Provider Internal Medicine Cardiovascular Disease; Visit Provider Internal Medicine Cardiovascular Disease
DX: Z79.01 Long term (current) use of anticoagulants (principal); Z98.890 Other specified postprocedural states; Z95.2 Presence of prosthetic heart valve
CPT/HCPCS: 36415; 36416; 85610

== ENCOUNTER 2018-10-15 16:30 | Outpatient (RCR) | payer MEDICARE, BC, SELFPAY ==
--- NOTE | 2018-09-17 08:52 | HP.PTEVAL ---
Patient's Visit Information ROBINA MCCAULEY is a 78 year old M referred to Physical Therapy by Mat Prieto DPM with a diagnosis of Achilles Tendonitis. Date of Evaluation: 09/16/18 Physical Therapist: Earnestine Armstrong DPT - Visit Plan Frequency: 2x /Week Duration: 6 Weeks Plan: Focus on LE stretching, Modality of US, dry needling and STM - Subjective Findings: Right achilles 09/25/18-insidous onset- unsure if its the calf stretch or stepping out of the shower. Dr. Prieto did an x-ray which was negative- no bone spurs. Has been doig ice packs 3x a day 20 min each and feels its helping. Pain is located in the foot and does not radiate. [place] like a spike coming up from the bottom and has been careful. Is in a boot for most of the day- is now using a scooter for most mobility. Prior to this injury he was doing 41 exercises 3x a week with the personalized living manager nurse. Prior to injury he was riding a recumbent bike (4 minutes). Is not making huge gains at this time. He is not sleeping in the boot. Work: 11/11 Agg: standing on it Eases: ice. Sleep: not disturbed. 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 Has shoes on order- wears orthotics in both- has new ones made. The old ones are from [facility]. PMHx:Blood pressure, aortic valve replacement: 1980, herniated disc L5-S1, Endocarditis, Major Stroke- 1991, Aortic Valve 1991,Infectious Disease, Seizures, Bunions, Knee Injury- 12/23/14, Foot Injury 09/25/18, Back surgery 1990 - Objective Posture: FH, RS- does correct but does not maintain. Gait: antalgic- is using a w/c and scooter for mobility at this time as he is afraid to put weight through the right LE with fear of pain and throwing off his other joints- wearing CAM walker on the right. Observation: significant bunion and great toe is significantly moved to the lateral side of the foot. Palpation: tender along achilles and plantar fascia- significant adhesion crepetis along plantar fascia. ROM: DF: neutral, PF: 40 degrees, Inv: 20 degrees, Ever: 15 degrees. Flex: Gastroc: severe. Soleus: Severe, Hamstring: Severe - Goals Goal 1:: Patient will be I with HEP and progression Goal Time Frame: 4-6 Weeks Goal 2:: Patient will ambualte >300 feet with a noramalized gait pattern Goal Time Frame: 4-6 Weeks Goal 3:: Patient will report 0/10 pain with ADL's. Goal Time Frame: 4-6 Weeks - Rehabilitation Potential Physical Therapy Diagnosis: Patient presents with hypomobility- he has decreased ROM, strength, flexibility and muscular endurance leading abnormal gait and increased pain with ADL's Rehabilitation Potential: Fair - Anticipated Interventions Patient/Client Instruction: Educate patient on: Benefits of Fitness Program Therapeutic Exercise to Include: Strength training, Endurance training, Balance training, Coordination, Agility training, Body mechanics, Postural training, Flexibilty training, Gait and locomotor training, Passive ROM, Active ROM, Dynamic Lumbar Stabilization For the Purpose of:: To improve muscle performance and motor function Manual Therapy Techniques to Include: Mobilization, Functional dry needling, Soft tissue mobilization For the Purpose of:: To improve nutrient delivery to tissue TENS: Yes Cryotherapy (ice pack, ice massage): Yes Thermo therapy (hot pack): Yes Ultrasound (thermal/non thermal): Yes Thank you for the opportunity to evaluate your patient. For Medicare and Medicare HMO plans, please review the plan of care and approve it. It will need to be FAXED BACK to us at [phone] for Medicare purposes. For Medicare only, by signing this I certify the plan of care. Please let me know if there are questions or concerns regarding this plan of care. Physician Signature: Date:
--- NOTE | 2018-10-16 08:54 | HP.PTDCSUM ---
HP - PT D/C Summary It has been my pleasure to treat ROBINA MCCAULEY under orders from Mat Prieto DPM, for the diagnosis of Achilles Tendonitis for a total of 9 visit(s). Discharge Date: Please see the following information for a summary of their discharge status. - Subjective Subjective: Patient reports he is a lot better- he has very little to no pain and only when he stands on it when he walks at night from the bed to the bathroom without shoes. Still wearing the boot and doing all the exercises from PT - Overall Improvement % Improvement: 90 - Objective Objective/Function: Posture: FH, RS- does correct but does not maintain. Gait: slightly antalgic-with shoe on right LE- decreased stance on the right with poor toe off secondary to bunions per pt report Observation: significant bunion and great toe is significantly moved to the lateral side of the foot. Palpation: not tender to touch ROM: DF: 4 degrees, PF: 40 degrees, Inv: 20 degrees, Ever: 15 degrees. Flex: Gastroc: severe. Soleus: Severe, Hamstring: Severe - Goals Goal 1:: Patient will be I with HEP and progression Goal Progress: Goal Met Goal 2:: Patient will ambualte >300 feet with a noramalized gait pattern Goal Progress: Progressing Goal 3:: Patient will report 0/10 pain with ADL's. Goal Progress: Progressing - Plan Plan: Discharge to I HEP - D/C Information If there are questions or concerns regarding this patient's physical therapy, please feel free to call me at [phone]. Thank you for the referral of this patient. Sincerely, SABAS LopezT
== END 2018-10-15 19:00 | disposition home or self-care (01) ==
LOC: PT 16:30
PROVIDERS: Family Provider Family Medicine; PCP Family Medicine; Referring Provider Podiatrist; Visit Provider Podiatrist
DX: M76.61 Achilles tendinitis, right leg (principal); M79.671 Pain in right foot; M10.471 Other secondary gout, right ankle and foot; M24.571 Contracture, right ankle; Z79.01 Long term (current) use of anticoagulants; Z98.890 Other specified postprocedural states; Z95.2 Presence of prosthetic heart valve
CPT/HCPCS: 36416; 85610; 97035; 97110; 97140; 97161; 97164

== ENCOUNTER → 2018-10-15 | Outpatient (CLI) | payer MEDICARE, BC, SELFPAY ==
[2018-10-15 08:06] VITALS: BMI 24.3
[2018-10-15 10:07] LABS: Absolute Neutrophil Count 3.2 X10^3/uL (2.0-7.7); Basophil# 0.01 X10^3/uL; Basophil% 0.2 % (0-1); Eosinophil# 0.19 X10^3/uL; Eosinophils% 3.2 % (0-5); Hematocrit 44.2 % (40-54); Hemoglobin 14.9 g/dl (13.0-16.5); Lymphocyte % 30.6 % (19-41); Mean Corp Hgb Conc 33.7 g/gl (32-36); Mean Corpuscular Hgb 31.9 pg (27.0-32.0); Mean Corpuscular Volume 94.6 fL (80-94); Mean Platelet Vol. 12.3 fl (6.2-12.0); Monocyte# 0.66 X10^3/uL; Monocyte% 11.2 % (0-10); Neutrophil # 3.22 X10^3/uL (2.7-7.7); Neutrophil % 54.6 % (47-70); Platelet Count 140 K/mm3 (150-450); RBC Distribution Width CV 12.5 % (11.6-14.6); RBC Distribution Width SD 42.6 fl (35.1-43.9); Red Blood Count 4.67 M/mm3 (4.6-6.2); White Blood Count 5.9 K/mm3 (4.4-11.0)
[2018-10-15 10:11] LABS: POSITIVE COUNT NO; POSITIVE DIFFERENTIAL NO; POSITIVE MORPHOLOGY NO
[2018-10-15 10:33] LABS: Phenytoin (Dilantin) Level 6.8 mL (10.0-20.0)
[2018-10-15 10:36] LABS: Cholesterol 139 mg/dL (200); High Density Lipoprotein 62 mg/dL; Triglycerides 89 mg/dL; Very Low Density Lipoprotein 18 mg/dL (5-40)
[2018-10-15 14:25] LABS: ALB/GLOB Ratio 1.1 RATIO (0.9-2.4); AST(SGOT) 23 U/L (15-37); Alanine Aminotransfer ALT/SGPT 25 U/L (16-61); Albumin, Serum 3.6 g/dL (3.2-5.0); Alkaline Phosphatase 98 U/L (45-117); Anion Gap 4 (5-15); BUN 17 mg/dL (7-18); Calcium,Total 8.5 mg/dL (8.5-10.1); Chloride 113 mmol/L (98-107); Creatinine, Serum 1.06 mg/dL (0.70-1.30); EST Glomerular Filtration Rate 72 mL/min (>60); Est Glom Filt Rate - Afr Amer 87 mL/min (>60); Globulin 3.2 g/dL (2.2-4.2); Glucose 75 mg/dL (74-106); Potassium 3.9 mmol/L (3.5-5.1); Protein, Total 6.8 g/dL (6.4-8.2); Sodium Level 141 mmol/L (136-145)
[2018-10-15 15:03] LABS: PTHIN 51.9 pg/mL (18.4-80.1)
[2018-10-15 15:09] LABS: Vitamin B12 1099 pg/mL (211-911); Vitamin D,25 Hydroxy 111.5 ng/mL (29.95-100.01)
== END | disposition home or self-care (01) ==
LOC: MFPLAB 08:07
PROVIDERS: Family Provider Family Medicine; PCP Family Medicine; Referring Provider Family Medicine; Visit Provider Family Medicine
DX: Z00.00 Encounter for general adult medical examination without abnormal findings (principal)
CPT/HCPCS: 36415; 80053; 80061; 80185; 82306; 82607; 83970; 85025

== ENCOUNTER 2018-10-27 11:33 | Outpatient (RCR) | payer MEDICARE, BC, SELFPAY ==
[2018-10-03 07:52] VITALS: BMI 24.1
[2018-10-13 10:01] LABS: Prothrombin Time Fingerstick 21.3 SEC (11.9-14.4)
[2018-10-20 10:55] LABS: Prothrombin Time Fingerstick 27.3 SEC (11.9-14.4)
== END 2018-10-27 12:00 | disposition home or self-care (01) ==
LOC: MTLAB 11:33
PROVIDERS: Family Provider Family Medicine; PCP Family Medicine; Referring Provider Internal Medicine Cardiovascular Disease; Visit Provider Internal Medicine Cardiovascular Disease
DX: Z79.01 Long term (current) use of anticoagulants (principal); Z98.890 Other specified postprocedural states; Z95.2 Presence of prosthetic heart valve
CPT/HCPCS: 36416; 85610

== ENCOUNTER 2018-12-01 09:11 | Outpatient (RCR) | payer MEDICARE, BC, SELFPAY ==
[2018-10-15 08:06] VITALS: BMI 24.3
[2018-11-09 10:01] LABS: Prothrombin Time Fingerstick 40.1 SEC (11.9-14.4)
[2018-11-09 11:29] LABS: Hematocrit 47.7 % (40-54); Hemoglobin 16.3 g/dl (13.0-16.5); Mean Corp Hgb Conc 34.2 g/gl (32-36); Mean Corpuscular Hgb 31.7 pg (27.0-32.0); Mean Corpuscular Volume 92.6 fL (80-94); Mean Platelet Vol. 12.5 fl (6.2-12.0); Platelet Count 129 K/mm3 (150-450); RBC Distribution Width CV 12.2 % (11.6-14.6); RBC Distribution Width SD 41.2 fl (35.1-43.9); Red Blood Count 5.15 M/mm3 (4.6-6.2); White Blood Count 8.9 K/mm3 (4.4-11.0)
[2018-11-09 11:32] LABS: Scan Indicated on CBC? Y/N NO
[2018-11-09 11:42] LABS: Uric Acid 4.5 mg/dL (3.5-7.2)
[2018-11-09 14:32] LABS: Anion Gap 8 (5-15); BUN 14 mg/dL (7-18); BUN/Creat Ratio 13.5 RATIO (10-20); Calcium,Total 9.1 mg/dL (8.5-10.1); Chloride 106 mmol/L (98-107); Creatinine, Serum 1.04 mg/dL (0.70-1.30); EST Glomerular Filtration Rate 74 mL/min (>60); Est Glom Filt Rate - Afr Amer 89 mL/min (>60); Glucose 91 mg/dL (74-106); Potassium 4.1 mmol/L (3.5-5.1); Sodium Level 141 mmol/L (136-145)
[2018-11-17 10:40] LABS: Prothrombin Time Fingerstick 19.9 SEC (11.9-14.4)
[2018-11-20 09:41] LABS: Prothrombin Time Fingerstick 29.8 SEC (11.9-14.4)
[2018-11-27 10:40] LABS: Prothrombin Time Fingerstick 34.6 SEC (11.9-14.4)
== END 2018-12-02 06:38 | disposition home or self-care (01) ==
LOC: MTLAB 09:11
PROVIDERS: Family Provider Family Medicine; PCP Family Medicine; Referring Provider Internal Medicine Cardiovascular Disease; Visit Provider Internal Medicine Cardiovascular Disease
DX: Z79.01 Long term (current) use of anticoagulants (principal); Z98.890 Other specified postprocedural states; Z95.2 Presence of prosthetic heart valve
CPT/HCPCS: 36415; 36416; 80048; 84550; 85027; 85610

== ENCOUNTER → 2018-12-04 | Outpatient (CLI) | payer MEDICARE, BC, SELFPAY ==
[2018-10-15 08:06] VITALS: BMI 24.3
[2018-12-04 08:56] LABS: Prothrombin Time Fingerstick 39.4 SEC (11.9-14.4)
[2018-12-04 09:22] LABS: International Normalized Ratio 4.4; Prothrombin Time (Protime)PT. 42.5 SECONDS (11.7-14.9)
== END | disposition home or self-care (01) ==
LOC: LAB 05:08
PROVIDERS: Family Provider Family Medicine; PCP Family Medicine; Visit Provider Internal Medicine Cardiovascular Disease
DX: I71.6 Thoracoabdominal aortic aneurysm, without rupture (principal); Z79.01 Long term (current) use of anticoagulants
CPT/HCPCS: 36416; 85610

== ENCOUNTER → 2018-12-08 | Outpatient (CLI) | payer MEDICARE, BC, SELFPAY ==
[2018-10-15 08:06] VITALS: BMI 24.3
[2018-12-08 14:15] LABS: Prothrombin Time Fingerstick 22.4 SEC (11.9-14.4)
== END | disposition home or self-care (01) ==
LOC: LAB 08:18
PROVIDERS: Visit Provider Nurse Practitioner Family
DX: I71.6 Thoracoabdominal aortic aneurysm, without rupture (principal); Z79.01 Long term (current) use of anticoagulants
CPT/HCPCS: 36416; 85610

== ENCOUNTER → 2018-12-14 03:47 | Outpatient (CLI) | payer MEDICARE, BC, SELFPAY ==
[2018-10-15 08:06] VITALS: BMI 24.3
[2018-12-14 10:59] LABS: Prothrombin Time Fingerstick 27.4 SEC (11.9-14.4)
== END ==
PROVIDERS: PCP Family Medicine; Visit Provider Nurse Practitioner Family
DX: I71.6 Thoracoabdominal aortic aneurysm, without rupture (principal); Z79.01 Long term (current) use of anticoagulants
CPT/HCPCS: 36416; 85610

== ENCOUNTER → 2018-12-21 | Outpatient (CLI) | payer MEDICARE, BC, SELFPAY ==
[2018-10-15 08:06] VITALS: BMI 24.3
[2018-12-21 10:42] LABS: Prothrombin Time Fingerstick 27.1 SEC (11.9-14.4)
== END | disposition home or self-care (01) ==
LOC: LAB 03:55
PROVIDERS: Family Provider Family Medicine; PCP Family Medicine; Visit Provider Nurse Practitioner Family
DX: I71.6 Thoracoabdominal aortic aneurysm, without rupture (principal); Z79.01 Long term (current) use of anticoagulants
CPT/HCPCS: 36416; 85610

== ENCOUNTER → 2018-12-31 | Outpatient (CLI) | payer MEDICARE, BC, SELFPAY ==
[2018-10-15 08:06] VITALS: BMI 24.3
[2018-12-31 10:09] LABS: Prothrombin Time Fingerstick 28.4 SEC (11.9-14.4)
== END | disposition home or self-care (01) ==
LOC: LAB 04:25
PROVIDERS: Family Provider Family Medicine; PCP Family Medicine; Visit Provider Nurse Practitioner Family
DX: I71.6 Thoracoabdominal aortic aneurysm, without rupture (principal); Z79.01 Long term (current) use of anticoagulants
CPT/HCPCS: 36416; 85610

== ENCOUNTER → 2019-01-12 | Outpatient (CLI) | payer MEDICARE, BC, SELFPAY ==
[2018-10-15 08:06] VITALS: BMI 24.3
[2019-01-12 08:43] LABS: Prothrombin Time Fingerstick 36.2 SEC (11.9-14.4)
== END | disposition home or self-care (01) ==
LOC: LAB 04:53
PROVIDERS: Family Provider Family Medicine; PCP Family Medicine; Visit Provider Nurse Practitioner Family
DX: I71.6 Thoracoabdominal aortic aneurysm, without rupture (principal)
CPT/HCPCS: 36416; 85610

== ENCOUNTER → 2019-01-27 | Outpatient (CLI) | payer MEDICARE, BC, SELFPAY ==
[2019-01-15 14:17] VITALS: BMI 23.6
[2019-01-27 12:06] LABS: Prothrombin Time Fingerstick 33.1 SEC (11.9-14.4)
== END | disposition home or self-care (01) ==
LOC: LAB 05:06
PROVIDERS: Family Provider Family Medicine; PCP Family Medicine; Visit Provider Nurse Practitioner Family
DX: Z79.01 Long term (current) use of anticoagulants (principal)
CPT/HCPCS: 36416; 85610

== ENCOUNTER → 2019-01-28 | Outpatient (CLI) | payer MEDICARE, BC, SELFPAY ==
[2018-10-15 08:06] VITALS: BMI 24.3
[2019-01-15 14:17] VITALS: BMI 23.6
--- NOTE | 2019-01-28 08:28 | BD_ITS ---
STUDY: DUAL ENERGY X-RAY ABSORPTIOMETRY / DXA REASON FOR EXAM: Male, 78 years old. Loss of height. Patient is on antiseizure medication. TECHNIQUE: Bone Mineral Density (BMD) measurements of lumbar spine and bilateral hips were obtained. COMPARISON: None. FINDINGS: Lumbar Spine (L1-L4): g/cm2 (1.126) / T-score (-0.8) / Z-score (-0.1) Findings are suggestive of normal bone density with a low fracture risk. Left Femur Total: g/cm2 (0.686) / T-score (-2.9) / Z-score (-1.9) Left Femoral Neck: g/cm2 (0.667) / T-score (-3.1) / Z-score (-1.7) Right Femur Total: g/cm2 (0.757) / T-score (-2.4) / Z-score (-1.4) Right Femoral Neck: g/cm2 (0.676) / T-score (-3.0) / Z-score (-1.6) BD/Dexa Bone Density Study IMPRESSION: The patient is considered osteoporotic as outlined below according to World Aydin Organization (WHO) criteria with a high fracture risk. Reference Information: The T-score is the number of standard deviations above or below the standard which is normal for young adults at their peak bone mineral density. The World Health Organization (WHO) interprets the T-scores as follows: Above -1 Normal bone density Between -1 and -2.5 Osteopenia Equal to / or below -2.5 Osteoporosis As a practical clinical guideline, osteopenia may be graded as follows: Mild -1 through -1.5 Moderate -1.6 through -2.0 Severe -2.1 through -2.4 The Z-score is the number of standard deviations above or below age-matched controls. A Z-score of less than -1.5 would be considered abnormal. References: 1. NIH Osteoporosis and Related Bone Diseases http://www.osteo.org 2. International Society for Clinical Densitometry http://www.iscd.org 3. National Osteoporosis Foundation http://www.nof.org Electronically Signed: Ricky Rahman, at 10:51 EDT , Service support ,
== END | disposition home or self-care (01) ==
LOC: OPBD 08:23
PROVIDERS: Family Provider Family Medicine; PCP Family Medicine; Referring Provider Family Medicine; Visit Provider Family Medicine
DX: M81.0 Age-related osteoporosis without current pathological fracture (principal); M85.80 Other specified disorders of bone density and structure, unspecified site
CPT/HCPCS: 77080

== ENCOUNTER → 2019-02-17 | Outpatient (CLI) | payer MEDICARE, BC, SELFPAY ==
[2019-01-15 14:17] VITALS: BMI 23.6
[2019-02-17 08:21] LABS: Prothrombin Time Fingerstick 36.6 SEC (11.9-14.4)
== END | disposition home or self-care (01) ==
LOC: LAB 04:49
PROVIDERS: Family Provider Family Medicine; PCP Family Medicine; Visit Provider Nurse Practitioner Family
DX: Z79.01 Long term (current) use of anticoagulants (principal)
CPT/HCPCS: 36416; 85610

== ENCOUNTER → 2019-03-16 | Outpatient (CLI) | payer MEDICARE, BC, SELFPAY ==
[2019-01-15 14:17] VITALS: BMI 23.6
[2019-03-16 11:19] LABS: International Normalized Ratio 2.1; Prothrombin Time (Protime)PT. 23.1 SECONDS (11.7-14.9)
== END | disposition home or self-care (01) ==
LOC: LAB 09:10
PROVIDERS: Family Provider Family Medicine; PCP Family Medicine; Visit Provider Nurse Practitioner Family
DX: Z79.01 Long term (current) use of anticoagulants (principal)
CPT/HCPCS: 36415; 85610

== ENCOUNTER → 2019-03-23 10:09 | Outpatient (CLI) | payer MEDICARE, BC, SELFPAY ==
[2019-01-15 14:17] VITALS: BMI 23.6
[2019-03-23 10:56] LABS: Prothrombin Time Fingerstick 31.1 SEC (11.9-14.4)
== END ==
PROVIDERS: Family Provider Family Medicine; PCP Family Medicine; Visit Provider Nurse Practitioner Family
DX: Z79.01 Long term (current) use of anticoagulants (principal)
CPT/HCPCS: 36416; 85610

== ENCOUNTER → 2019-04-06 09:37 | Outpatient (CLI) | payer MEDICARE, BC, SELFPAY ==
[2019-01-15 14:17] VITALS: BMI 23.6
[2019-04-06 10:15] LABS: Prothrombin Time Fingerstick 23.9 SEC (11.9-14.4)
== END ==
PROVIDERS: Family Provider Family Medicine; PCP Family Medicine; Visit Provider Nurse Practitioner Family
DX: Z79.01 Long term (current) use of anticoagulants (principal)
CPT/HCPCS: 36416; 85610

== ENCOUNTER → 2019-04-20 05:02 | Outpatient (CLI) | payer MEDICARE, BC, SELFPAY ==
[2019-01-15 14:17] VITALS: BMI 23.6
[2019-04-20 10:06] LABS: Prothrombin Time Fingerstick 37.3 SEC (11.9-14.4)
== END ==
PROVIDERS: Family Provider Family Medicine; PCP Family Medicine; Visit Provider Nurse Practitioner Family
DX: Z79.01 Long term (current) use of anticoagulants (principal)
CPT/HCPCS: 36416; 85610

== ENCOUNTER → 2019-05-04 10:17 | Outpatient (CLI) | payer MEDICARE, BC, SELFPAY ==
[2019-01-15 14:17] VITALS: BMI 23.6
[2019-05-04 10:51] LABS: Prothrombin Time Fingerstick 40.2 SEC (11.9-14.4)
[2019-05-04 11:12] LABS: Prothrombin Time (Protime)PT. 43.4 SECONDS (11.7-14.9)
[2019-05-04 11:17] LABS: International Normalized Ratio 4.5
== END ==
PROVIDERS: Family Provider Family Medicine; PCP Family Medicine; Visit Provider Nurse Practitioner Family
DX: Z79.01 Long term (current) use of anticoagulants (principal)
CPT/HCPCS: 85610

== ENCOUNTER → 2019-05-11 10:31 | Outpatient (CLI) | payer MEDICARE, BC, SELFPAY ==
[2019-01-15 14:17] VITALS: BMI 23.6
[2019-05-11 11:15] LABS: Prothrombin Time Fingerstick 33.6 SEC (11.9-14.4)
== END ==
PROVIDERS: Family Provider Family Medicine; PCP Family Medicine; Visit Provider Nurse Practitioner Family
DX: Z79.01 Long term (current) use of anticoagulants (principal)
CPT/HCPCS: 36416; 85610

== ENCOUNTER → 2019-05-18 09:03 | Outpatient (CLI) | payer MEDICARE, BC, SELFPAY ==
[2019-01-15 14:17] VITALS: BMI 23.6
[2019-05-18 10:39] LABS: Prothrombin Time (Protime)PT. 38.9 SECONDS (11.7-14.9)
[2019-05-18 10:42] LABS: International Normalized Ratio 3.9
[2019-05-18 10:47] LABS: Thyroid Stim Hormone (TSH) 1.96 uIU/mL (0.358-3.74)
[2019-05-18 10:58] LABS: Vitamin B12 902 pg/mL (211-911)
== END ==
LOC: LAB 09:06 → LABSPEC 10:10
PROVIDERS: Family Provider Psychiatry & Neurology Neurology; PCP Family Medicine; Visit Provider Nurse Practitioner Family
DX: G40.919 Epilepsy, unspecified, intractable, without status epilepticus (principal); R41.0 Disorientation, unspecified; Z79.01 Long term (current) use of anticoagulants
CPT/HCPCS: 36415; 82140; 82607; 82746; 84443; 85610

== ENCOUNTER → 2019-05-25 08:58 | Outpatient (CLI) | payer MEDICARE, BC, SELFPAY ==
[2019-01-15 14:17] VITALS: BMI 23.6
[2019-05-25 10:21] LABS: Prothrombin Time Fingerstick 32.9 SEC (11.9-14.4)
== END ==
PROVIDERS: PCP Family Medicine; Visit Provider Nurse Practitioner Family
DX: Z79.01 Long term (current) use of anticoagulants (principal)
CPT/HCPCS: 36416; 85610

== ENCOUNTER → 2019-06-03 07:45 | Outpatient (CLI) | payer MEDICARE, BC, SELFPAY ==
[2019-01-15 14:17] VITALS: BMI 23.6
--- NOTE | 2019-06-03 07:47 | CT_ITS ---
STUDY: CT BRAIN WITHOUT CONTRAST REASON FOR EXAM: Male, 78 years old. MEMORY LOSS, HX MAJOR STROKE AND TIA RADIATION DOSAGE (If Supplied By Facility): CTDIvol = ( 44.99 ) mGy, DLP = ( 846.73 ) mGycm TECHNIQUE: Transaxial CT imaging of the brain was performed without administration of intravenous contrast material. Individualized dose optimization techniques were used for this CT. COMPARISON: Comparison is made with prior examination dated November 16, 2012. FINDINGS: Normal soft tissue structures. Normal calvarium. There is mild cerebral atrophy with widening of the extra-axial spaces and ventricular dilatation. Stable area of encephalomalacia in the right temporal lobe. Stable encephalomalacia in the insular cortex of the right temporal lobe. Stable focal encephalomalacia in the right posterior occipital lobe. This is unchanged. There are small punctate calcifications of the basal ganglia which are seen in the aging brain as a normal variant. Normal brainstem. There is mild cerebellar atrophy. Stable enlargement of the cisterna magna. There is no intracranial hemorrhage. There are no findings of an acute ischemic infarction. Hypoplastic left maxillary sinus. CT/Brain/Head without Contrast IMPRESSION: Chronic involutional changes of the brain. Electronically Signed: Ricky Rahman, at 8:52 EST , Service support ,
== END ==
PROVIDERS: Family Provider Family Medicine; PCP Family Medicine
DX: G40.919 Epilepsy, unspecified, intractable, without status epilepticus (principal)
CPT/HCPCS: 70450

== ENCOUNTER → 2019-06-08 09:21 | Outpatient (CLI) | payer MEDICARE, BC, SELFPAY ==
[2019-01-15 14:17] VITALS: BMI 23.6
[2019-06-08 10:21] LABS: Prothrombin Time Fingerstick 34.1 SEC (11.9-14.4)
== END ==
PROVIDERS: PCP Family Medicine; Visit Provider Nurse Practitioner Family
DX: Z79.01 Long term (current) use of anticoagulants (principal)
CPT/HCPCS: 36416; 85610

== ENCOUNTER → 2019-06-22 09:12 | Outpatient (CLI) | payer MEDICARE, BC, SELFPAY ==
[2019-01-15 14:17] VITALS: BMI 23.6
[2019-06-22 10:51] LABS: Prothrombin Time Fingerstick 31.4 SEC (11.9-14.4)
== END ==
PROVIDERS: PCP Family Medicine; Visit Provider Nurse Practitioner Family
DX: Z79.01 Long term (current) use of anticoagulants (principal)
CPT/HCPCS: 36416; 85610

== ENCOUNTER → 2019-07-06 10:04 | Outpatient (CLI) | payer MEDICARE, BC, SELFPAY ==
[2019-01-15 14:17] VITALS: BMI 23.6
[2019-07-06 10:56] LABS: Prothrombin Time Fingerstick 28.1 SEC (11.9-14.4)
== END ==
PROVIDERS: PCP Family Medicine; Visit Provider Nurse Practitioner Family
DX: Z79.01 Long term (current) use of anticoagulants (principal)
CPT/HCPCS: 36416; 85610

== ENCOUNTER → 2019-07-20 09:48 | Outpatient (CLI) | payer MEDICARE, BC, SELFPAY ==
[2019-01-15 14:17] VITALS: BMI 23.6
[2019-07-20 11:06] LABS: Prothrombin Time Fingerstick 41.5 SEC (11.9-14.4)
[2019-07-20 11:20] LABS: Prothrombin Time (Protime)PT. 42.6 SECONDS (11.7-14.9)
[2019-07-20 11:25] LABS: International Normalized Ratio 4.4
== END ==
PROVIDERS: Visit Provider Nurse Practitioner Family
DX: Z79.01 Long term (current) use of anticoagulants (principal)
CPT/HCPCS: 36415; 36416; 85610

== ENCOUNTER → 2019-07-27 07:27 | Outpatient (CLI) | payer MEDICARE, BC, SELFPAY ==
[2019-01-15 14:17] VITALS: BMI 23.6
[2019-07-27 10:55] LABS: Prothrombin Time Fingerstick 33.3 SEC (11.9-14.4)
== END ==
PROVIDERS: PCP Family Medicine; Visit Provider Nurse Practitioner Family
DX: Z79.01 Long term (current) use of anticoagulants (principal)
CPT/HCPCS: 36416; 85610

== ENCOUNTER → 2019-08-03 07:25 | Outpatient (CLI) | payer MEDICARE, BC, SELFPAY ==
[2019-01-15 14:17] VITALS: BMI 23.6
== END ==
PROVIDERS: Visit Provider Nurse Practitioner Family
DX: Z79.01 Long term (current) use of anticoagulants (principal)
CPT/HCPCS: 36416; 85610

== ENCOUNTER → 2019-08-12 09:00 | Outpatient (CLI) | payer MEDICARE, BC, SELFPAY ==
[2019-01-15 14:17] VITALS: BMI 23.6
[2019-08-12 12:36] LABS: Prothrombin Time Fingerstick 35.1 SEC (11.9-14.4)
== END ==
PROVIDERS: Visit Provider Nurse Practitioner Family
DX: Z79.01 Long term (current) use of anticoagulants (principal)
CPT/HCPCS: 36416; 85610

== ENCOUNTER → 2019-09-02 05:44 | Outpatient (CLI) | payer MEDICARE, BC, SELFPAY ==
[2019-01-15 14:17] VITALS: BMI 23.6
[2019-09-02 08:26] LABS: Prothrombin Time Fingerstick 24.7 SEC (11.9-14.4)
== END ==
PROVIDERS: PCP Family Medicine; Visit Provider Nurse Practitioner Family
DX: Z79.01 Long term (current) use of anticoagulants (principal)
CPT/HCPCS: 36416; 85610

== ENCOUNTER → 2019-09-09 05:44 | Outpatient (CLI) | payer MEDICARE, BC, SELFPAY ==
[2019-01-15 14:17] VITALS: BMI 23.6
[2019-09-09 09:06] LABS: Prothrombin Time Fingerstick 22.2 SEC (11.9-14.4)
== END ==
PROVIDERS: PCP Family Medicine; Visit Provider Nurse Practitioner Family
DX: Z79.01 Long term (current) use of anticoagulants (principal)
CPT/HCPCS: 36416; 85610

== ENCOUNTER → 2019-09-16 05:17 | Outpatient (CLI) | payer MEDICARE, BC, SELFPAY ==
[2019-01-15 14:17] VITALS: BMI 23.6
[2019-09-16 08:10] LABS: Prothrombin Time Fingerstick 27.1 SEC (11.9-14.4)
== END ==
PROVIDERS: PCP Family Medicine; Visit Provider Nurse Practitioner Family
DX: Z79.01 Long term (current) use of anticoagulants (principal)
CPT/HCPCS: 36416; 85610

== ENCOUNTER → 2019-09-30 05:51 | Outpatient (CLI) | payer MEDICARE, BC, SELFPAY ==
[2019-01-15 14:17] VITALS: BMI 23.6
[2019-09-30 08:00] LABS: Prothrombin Time Fingerstick 17.5 SEC (11.9-14.4)
== END ==
PROVIDERS: PCP Family Medicine; Visit Provider Nurse Practitioner Family
DX: Z79.01 Long term (current) use of anticoagulants (principal)
CPT/HCPCS: 36416; 85610

== ENCOUNTER → 2019-10-01 08:16 | Outpatient (CLI) | payer MEDICARE, BC, SELFPAY ==
[2019-01-15 14:17] VITALS: BMI 23.6
[2019-10-01 11:31] LABS: Prothrombin Time Fingerstick 20.3 SEC (11.9-14.4)
== END ==
PROVIDERS: PCP Family Medicine; Visit Provider Nurse Practitioner Family
DX: Z79.01 Long term (current) use of anticoagulants (principal)
CPT/HCPCS: 36416; 85610

== ENCOUNTER → 2019-10-04 09:57 | Outpatient (CLI) | payer MEDICARE, BC, SELFPAY ==
[2019-01-15 14:17] VITALS: BMI 23.6
[2019-10-04 10:56] LABS: Prothrombin Time Fingerstick 29.8 SEC (11.9-14.4)
== END ==
PROVIDERS: Visit Provider Nurse Practitioner Family
DX: Z79.01 Long term (current) use of anticoagulants (principal)
CPT/HCPCS: 36416; 85610

== ENCOUNTER → 2019-10-11 09:07 | Outpatient (CLI) | payer MEDICARE, BC, SELFPAY ==
[2019-01-15 14:17] VITALS: BMI 23.6
[2019-10-11 10:37] LABS: International Normalized Ratio 5.6
== END ==
PROVIDERS: PCP Family Medicine; Visit Provider Nurse Practitioner Family
DX: Z79.01 Long term (current) use of anticoagulants (principal)
CPT/HCPCS: 36416; 85610

== ENCOUNTER → 2019-10-14 05:38 | Outpatient (CLI) | payer MEDICARE, BC, SELFPAY ==
[2019-01-15 14:17] VITALS: BMI 23.6
[2019-10-14 10:37] LABS: Hematocrit 43.9 % (40-54); Hemoglobin 14.7 g/dL (13.0-16.5); Mean Corp Hgb Conc 33.5 g/dL (32-36); Mean Corpuscular Hgb 32.2 pg (27.0-32.0); Mean Corpuscular Volume 96.1 fL (80-94); Mean Platelet Vol. 12.4 fl (6.2-12.0); Platelet Count 140 K/mm3 (150-450); RBC Distribution Width CV 11.8 % (11.6-14.6); RBC Distribution Width SD 41.2 fl (35.1-43.9); Red Blood Count 4.57 M/mm3 (4.6-6.2); White Blood Count 5.3 K/mm3 (4.4-11.0)
[2019-10-14 10:45] LABS: International Normalized Ratio 2.6; Prothrombin Time (Protime)PT. 27.8 SECONDS (11.7-14.9)
[2019-10-14 10:52] LABS: ALB/GLOB Ratio 1.1 RATIO (0.9-2.4); AST(SGOT) 21 U/L (15-37); Alanine Aminotransfer ALT/SGPT 24 U/L (16-61); Albumin, Serum 3.5 g/dL (3.2-5.0); Alkaline Phosphatase 100 U/L (45-117); Anion Gap 4 (5-15); BUN 14 mg/dL (7-18); BUN/Creat Ratio 14.7 RATIO (10-20); Calcium,Total 8.5 mg/dL (8.5-10.1); Chloride 111 mmol/L (98-107); Creatinine, Serum 0.95 mg/dL (0.70-1.30); EST Glomerular Filtration Rate 82 mL/min (>60); Est Glom Filt Rate - Afr Amer 99 mL/min (>60); Globulin 3.3 g/dL (2.2-4.2); Glucose 105 mg/dL (74-106); Phenytoin (Dilantin) Level 7.3 mL (10.0-20.0); Potassium 3.7 mmol/L (3.5-5.1); Protein, Total 6.8 g/dL (6.4-8.2); Sodium Level 142 mmol/L (136-145)
[2019-10-17 23:48] LABS: KEPPRA (LEVETIRACETAM) 16.9 ug/mL (10.0-40.0)
== END ==
PROVIDERS: PCP Family Medicine; Referring Provider Psychiatry & Neurology Neurology; Visit Provider Nurse Practitioner Family
DX: G40.909 Epilepsy, unspecified, not intractable, without status epilepticus (principal); Z79.01 Long term (current) use of anticoagulants
CPT/HCPCS: 36415; 80053; 80177; 80185; 85027; 85610

== ENCOUNTER → 2019-10-18 10:19 | Outpatient (CLI) | payer MEDICARE, BC, SELFPAY ==
[2019-01-15 14:17] VITALS: BMI 23.6
[2019-10-18 11:01] LABS: Prothrombin Time Fingerstick 26.6 SEC (11.9-14.4)
== END ==
PROVIDERS: PCP Family Medicine; Referring Provider Nurse Practitioner Family; Visit Provider Nurse Practitioner Family
DX: Z79.01 Long term (current) use of anticoagulants (principal)
CPT/HCPCS: 36416; 85610

== ENCOUNTER → 2019-10-25 10:04 | Outpatient (CLI) | payer MEDICARE, BC, SELFPAY ==
[2019-01-15 14:17] VITALS: BMI 23.6
[2019-10-25 11:40] LABS: Prothrombin Time Fingerstick 31.2 SEC (11.9-14.4)
== END ==
PROVIDERS: PCP Family Medicine; Referring Provider Nurse Practitioner Family; Visit Provider Nurse Practitioner Family
DX: Z79.01 Long term (current) use of anticoagulants (principal)
CPT/HCPCS: 36416; 85610

== ENCOUNTER → 2019-11-01 09:04 | Outpatient (CLI) | payer MEDICARE, BC, SELFPAY ==
[2019-01-15 14:17] VITALS: BMI 23.6
[2019-11-01 10:26] LABS: Prothrombin Time Fingerstick 34.5 SEC (11.9-14.4)
== END ==
PROVIDERS: Referring Provider Nurse Practitioner Family; Visit Provider Nurse Practitioner Family
DX: Z79.01 Long term (current) use of anticoagulants (principal)
CPT/HCPCS: 36416; 85610

== ENCOUNTER → 2019-11-15 09:07 | Outpatient (CLI) | payer MEDICARE, BC, SELFPAY ==
[2019-01-15 14:17] VITALS: BMI 23.6
[2019-11-16 08:00] LABS: Prothrombin Time Fingerstick 20.7 SEC (11.9-14.4)
== END ==
PROVIDERS: Referring Provider Nurse Practitioner Family; Visit Provider Nurse Practitioner Family
DX: Z79.01 Long term (current) use of anticoagulants (principal)
CPT/HCPCS: 36416; 85610

== ENCOUNTER → 2019-11-29 04:20 | Outpatient (CLI) | payer MEDICARE, BC, SELFPAY ==
[2019-01-15 14:17] VITALS: BMI 23.6
[2019-11-29 10:06] LABS: Prothrombin Time Fingerstick 28.3 SEC (11.9-14.4)
== END ==
PROVIDERS: Referring Provider Internal Medicine Cardiovascular Disease; Visit Provider Internal Medicine Cardiovascular Disease
DX: Z98.890 Other specified postprocedural states (principal); Z95.2 Presence of prosthetic heart valve; Z79.01 Long term (current) use of anticoagulants
CPT/HCPCS: 36416; 85610

== ENCOUNTER → 2019-12-09 08:12 | Outpatient (CLI) | payer MEDICARE, BC, SELFPAY ==
[2019-01-15 14:17] VITALS: BMI 23.6
[2019-12-09 09:49] LABS: Prothrombin Time (Protime)PT. 51.2 SECONDS (11.7-14.9)
[2019-12-09 09:53] LABS: International Normalized Ratio 5.6
[2019-12-09 11:11] LABS: Prothrombin Time Fingerstick 55.3 SEC (11.9-14.4)
== END ==
PROVIDERS: Referring Provider Internal Medicine Cardiovascular Disease; Visit Provider Internal Medicine Cardiovascular Disease
DX: Z79.01 Long term (current) use of anticoagulants (principal); Z95.2 Presence of prosthetic heart valve; Z98.890 Other specified postprocedural states
CPT/HCPCS: 36415; 36416; 85610

== ENCOUNTER → 2019-12-16 09:58 | Outpatient (CLI) | payer MEDICARE, BC, SELFPAY ==
[2019-01-15 14:17] VITALS: BMI 23.6
[2019-12-16 10:36] LABS: Prothrombin Time Fingerstick 18.9 SEC (11.9-14.4)
== END ==
PROVIDERS: PCP Family Medicine; Visit Provider Internal Medicine Cardiovascular Disease
DX: Z98.890 Other specified postprocedural states (principal); Z95.2 Presence of prosthetic heart valve; Z79.01 Long term (current) use of anticoagulants
CPT/HCPCS: 36416; 85610

== ENCOUNTER → 2019-12-23 09:26 | Outpatient (CLI) | payer MEDICARE, BC, SELFPAY ==
[2019-01-15 14:17] VITALS: BMI 23.6
[2019-12-23 10:05] LABS: Prothrombin Time Fingerstick 30.2 SEC (11.9-14.4)
== END ==
PROVIDERS: PCP Family Medicine; Referring Provider Internal Medicine Cardiovascular Disease; Visit Provider Internal Medicine Cardiovascular Disease
DX: Z98.890 Other specified postprocedural states (principal); Z95.2 Presence of prosthetic heart valve; Z79.01 Long term (current) use of anticoagulants
CPT/HCPCS: 36416; 85610

== ENCOUNTER → 2019-12-30 09:13 | Outpatient (CLI) | payer MEDICARE, BC, SELFPAY ==
[2019-01-15 14:17] VITALS: BMI 23.6
[2019-12-30 09:51] LABS: Prothrombin Time Fingerstick 17.3 SEC (11.9-14.4)
== END ==
PROVIDERS: PCP Family Medicine; Referring Provider Internal Medicine Cardiovascular Disease; Visit Provider Internal Medicine Cardiovascular Disease
DX: Z98.890 Other specified postprocedural states (principal); Z95.2 Presence of prosthetic heart valve; Z79.01 Long term (current) use of anticoagulants
CPT/HCPCS: 36416; 85610

== ENCOUNTER → 2020-01-04 09:16 | Outpatient (CLI) | payer MEDICARE, BC, SELFPAY ==
[2019-01-15 14:17] VITALS: BMI 23.6
[2020-01-04 10:46] LABS: Prothrombin Time Fingerstick 24.6 SEC (11.9-14.4)
== END ==
PROVIDERS: PCP Family Medicine; Visit Provider Internal Medicine Cardiovascular Disease
DX: Z98.890 Other specified postprocedural states (principal); Z95.2 Presence of prosthetic heart valve; Z79.01 Long term (current) use of anticoagulants
CPT/HCPCS: 36416; 85610

== ENCOUNTER → 2020-01-18 08:50 | Outpatient (CLI) | payer MEDICARE, BC, SELFPAY ==
[2019-01-15 14:17] VITALS: BMI 23.6
[2020-01-18 09:25] LABS: Prothrombin Time Fingerstick 24.5 SEC (11.9-14.4)
== END ==
PROVIDERS: PCP Family Medicine; Visit Provider Internal Medicine Cardiovascular Disease
DX: Z98.890 Other specified postprocedural states (principal); Z95.2 Presence of prosthetic heart valve; Z79.01 Long term (current) use of anticoagulants
CPT/HCPCS: 36416; 85610

== ENCOUNTER → 2020-01-25 05:13 | Outpatient (CLI) | payer MEDICARE, BC, SELFPAY ==
[2019-01-15 14:17] VITALS: BMI 23.6
[2020-01-25 11:15] LABS: Prothrombin Time Fingerstick 40.6 SEC (11.9-14.4)
[2020-01-25 11:59] LABS: Prothrombin Time (Protime)PT. 40.6 SECONDS (11.7-14.9)
[2020-01-25 12:08] LABS: International Normalized Ratio 4.2
== END ==
PROVIDERS: PCP Family Medicine; Referring Provider Internal Medicine Cardiovascular Disease; Visit Provider Internal Medicine Cardiovascular Disease
DX: Z98.890 Other specified postprocedural states (principal); Z95.2 Presence of prosthetic heart valve; Z79.01 Long term (current) use of anticoagulants
CPT/HCPCS: 36416; 85610

== ENCOUNTER → 2020-02-01 04:54 | Outpatient (CLI) | payer MEDICARE, BC, SELFPAY ==
[2019-01-15 14:17] VITALS: BMI 23.6
[2020-02-01 10:00] LABS: Prothrombin Time Fingerstick 26.2 SEC (11.9-14.4)
== END ==
PROVIDERS: PCP Family Medicine; Referring Provider Internal Medicine Cardiovascular Disease; Visit Provider Internal Medicine Cardiovascular Disease
DX: Z98.890 Other specified postprocedural states (principal); Z95.2 Presence of prosthetic heart valve; Z79.01 Long term (current) use of anticoagulants
CPT/HCPCS: 36416; 85610

== ENCOUNTER → 2020-02-08 09:04 | Outpatient (CLI) | payer MEDICARE, BC, SELFPAY ==
[2019-01-15 14:17] VITALS: BMI 23.6
[2020-02-08 13:15] LABS: Prothrombin Time Fingerstick 37.2 SEC (11.9-14.4)
== END ==
PROVIDERS: PCP Family Medicine; Visit Provider Internal Medicine Cardiovascular Disease
DX: Z98.890 Other specified postprocedural states (principal); Z95.2 Presence of prosthetic heart valve; Z79.01 Long term (current) use of anticoagulants
CPT/HCPCS: 36416; 85610

== ENCOUNTER → 2020-02-22 09:34 | Outpatient (CLI) | payer MEDICARE, BC, SELFPAY ==
[2020-02-16 15:06] VITALS: BMI 23.6
== END ==
PROVIDERS: PCP Family Medicine; Visit Provider Internal Medicine Cardiovascular Disease
DX: Z98.890 Other specified postprocedural states (principal); Z95.2 Presence of prosthetic heart valve; Z79.01 Long term (current) use of anticoagulants
CPT/HCPCS: 36416; 85610

== ENCOUNTER → 2020-03-07 08:20 | Outpatient (CLI) | payer MEDICARE, BC, SELFPAY ==
[2020-02-16 15:06] VITALS: BMI 23.6
[2020-03-07 09:50] LABS: International Normalized Ratio 1.2
[2020-03-07 10:20] LABS: Vitamin B12 1146 pg/mL (211-911)
[2020-03-07 10:37] LABS: ALB/GLOB Ratio 1.1 RATIO (0.9-2.4); AST(SGOT) 22 U/L (15-37); Alanine Aminotransfer ALT/SGPT 22 U/L (16-61); Albumin, Serum 3.5 g/dL (3.2-5.0); Alkaline Phosphatase 93 U/L (45-117); Anion Gap 5 (5-15); BUN 19 mg/dL (7-18); BUN/Creat Ratio 19.3 RATIO (10-20); Calcium,Total 8.5 mg/dL (8.5-10.1); Chloride 107 mmol/L (98-107); Cholesterol 130 mg/dL (200); Creatinine, Serum 0.99 mg/dL (0.70-1.30); EST Glomerular Filtration Rate 78 mL/min (>60); Est Glom Filt Rate - Afr Amer 95 mL/min (>60); Globulin 3.3 g/dL (2.2-4.2); Glucose 86 mg/dL (74-106); High Density Lipoprotein 70 mg/dL; Potassium 3.7 mmol/L (3.5-5.1); Protein, Total 6.8 g/dL (6.4-8.2); Sodium Level 139 mmol/L (136-145); Thyroid Stim Hormone (TSH) 0.99 uIU/mL (0.358-3.74); Triglycerides 67 mg/dL; Very Low Density Lipoprotein 13 mg/dL (5-40)
== END ==
PROVIDERS: PCP Family Medicine; Visit Provider Internal Medicine Cardiovascular Disease
DX: Z98.890 Other specified postprocedural states (principal); Z95.2 Presence of prosthetic heart valve; Z79.01 Long term (current) use of anticoagulants; G40.909 Epilepsy, unspecified, not intractable, without status epilepticus; I71.2 Thoracic aortic aneurysm, without rupture; R41.3 Other amnesia
CPT/HCPCS: 36415; 80053; 80061; 82607; 84443; 85610

== ENCOUNTER → 2020-03-16 09:07 | Outpatient (CLI) | payer MEDICARE, BC, SELFPAY ==
[2020-02-16 15:06] VITALS: BMI 23.6
== END ==
PROVIDERS: PCP Family Medicine; Referring Provider Internal Medicine Cardiovascular Disease; Visit Provider Internal Medicine Cardiovascular Disease
DX: Z98.890 Other specified postprocedural states (principal); Z95.2 Presence of prosthetic heart valve; Z79.01 Long term (current) use of anticoagulants
CPT/HCPCS: 36416; 85610

== ENCOUNTER → 2020-03-23 08:34 | Outpatient (CLI) | payer MEDICARE, BC, SELFPAY ==
[2020-02-16 15:06] VITALS: BMI 23.6
[2020-03-23 10:26] LABS: Prothrombin Time Fingerstick 28.2 SEC (11.9-14.4)
== END ==
PROVIDERS: PCP Family Medicine; Referring Provider Internal Medicine Cardiovascular Disease; Visit Provider Internal Medicine Cardiovascular Disease
DX: Z98.890 Other specified postprocedural states (principal); Z95.2 Presence of prosthetic heart valve; Z79.01 Long term (current) use of anticoagulants
CPT/HCPCS: 36416; 85610

== ENCOUNTER → 2020-03-31 09:06 | Outpatient (CLI) | payer MEDICARE, BC, SELFPAY ==
[2020-02-16 15:06] VITALS: BMI 23.6
[2020-03-31 10:51] LABS: Prothrombin Time (Protime)PT. 52.5 SECONDS (11.7-14.9)
[2020-03-31 11:08] LABS: International Normalized Ratio 5.8
[2020-03-31 12:15] LABS: Prothrombin Time Fingerstick 51.8 SEC (11.9-14.4)
== END ==
PROVIDERS: PCP Family Medicine; Referring Provider Internal Medicine Cardiovascular Disease; Visit Provider Internal Medicine Cardiovascular Disease
DX: Z98.890 Other specified postprocedural states (principal); Z95.2 Presence of prosthetic heart valve; Z79.01 Long term (current) use of anticoagulants
CPT/HCPCS: 36416; 85610

== ENCOUNTER → 2020-04-03 08:23 | Outpatient (CLI) | payer MEDICARE, BC, SELFPAY ==
[2020-02-16 15:06] VITALS: BMI 23.6
[2020-04-03 10:26] LABS: Prothrombin Time Fingerstick 19.4 SEC (11.9-14.4)
== END ==
PROVIDERS: PCP Family Medicine; Visit Provider Internal Medicine Cardiovascular Disease
DX: Z98.890 Other specified postprocedural states (principal); Z95.2 Presence of prosthetic heart valve; Z79.01 Long term (current) use of anticoagulants
CPT/HCPCS: 36416; 85610

== ENCOUNTER → 2020-04-07 04:33 | Outpatient (CLI) | payer MEDICARE, BC, SELFPAY ==
[2020-02-16 15:06] VITALS: BMI 23.6
[2020-04-07 10:36] LABS: Prothrombin Time Fingerstick 28.8 SEC (11.9-14.4)
== END ==
PROVIDERS: PCP Family Medicine; Referring Provider Internal Medicine Cardiovascular Disease; Visit Provider Internal Medicine Cardiovascular Disease
DX: Z98.890 Other specified postprocedural states (principal); Z95.2 Presence of prosthetic heart valve; Z79.01 Long term (current) use of anticoagulants
CPT/HCPCS: 36416; 85610

== ENCOUNTER → 2020-04-18 09:14 | Outpatient (CLI) | payer MEDICARE, BC, SELFPAY ==
[2020-02-16 15:06] VITALS: BMI 23.6
[2020-04-19 12:30] LABS: Prothrombin Time Fingerstick 19.8 SEC (11.9-14.4)
== END ==
PROVIDERS: PCP Family Medicine; Referring Provider Internal Medicine Cardiovascular Disease; Visit Provider Internal Medicine Cardiovascular Disease
DX: Z98.890 Other specified postprocedural states (principal); Z95.2 Presence of prosthetic heart valve; Z79.01 Long term (current) use of anticoagulants
CPT/HCPCS: 36416; 85610

== ENCOUNTER → 2020-04-24 08:20 | Outpatient (CLI) | payer MEDICARE, BC, SELFPAY ==
[2020-02-16 15:06] VITALS: BMI 23.6
[2020-04-24 09:30] LABS: Prothrombin Time Fingerstick 27.7 SEC (11.9-14.4)
== END ==
PROVIDERS: PCP Family Medicine; Referring Provider Internal Medicine Cardiovascular Disease; Visit Provider Internal Medicine Cardiovascular Disease
DX: Z98.890 Other specified postprocedural states (principal); Z95.2 Presence of prosthetic heart valve; Z79.01 Long term (current) use of anticoagulants
CPT/HCPCS: 36416; 85610

== ENCOUNTER → 2020-05-02 05:15 | Outpatient (CLI) | payer MEDICARE, BC, SELFPAY ==
[2020-02-16 15:06] VITALS: BMI 23.6
[2020-05-02 11:55] LABS: Prothrombin Time Fingerstick 23.5 SEC (11.9-14.4)
== END ==
PROVIDERS: PCP Family Medicine; Referring Provider Internal Medicine Cardiovascular Disease; Visit Provider Internal Medicine Cardiovascular Disease
DX: Z98.890 Other specified postprocedural states (principal); Z95.2 Presence of prosthetic heart valve; Z79.01 Long term (current) use of anticoagulants
CPT/HCPCS: 36416; 85610

== ENCOUNTER → 2020-05-09 04:44 | Outpatient (CLI) | payer MEDICARE, BC, SELFPAY ==
[2020-02-16 15:06] VITALS: BMI 23.6
[2020-05-09 10:21] LABS: Prothrombin Time Fingerstick 42.5 SEC (11.9-14.4)
[2020-05-09 10:48] LABS: International Normalized Ratio 4.1; Prothrombin Time (Protime)PT. 39.9 SECONDS (11.7-14.9)
== END ==
PROVIDERS: PCP Family Medicine; Referring Provider Internal Medicine Cardiovascular Disease; Visit Provider Internal Medicine Cardiovascular Disease
DX: Z98.890 Other specified postprocedural states (principal); Z95.2 Presence of prosthetic heart valve; Z79.01 Long term (current) use of anticoagulants
CPT/HCPCS: 36415; 36416; 85610

== ENCOUNTER → 2020-05-16 04:35 | Outpatient (CLI) | payer MEDICARE, BC, SELFPAY ==
[2020-02-16 15:06] VITALS: BMI 23.6
[2020-05-16 10:35] LABS: International Normalized Ratio 4.1; Prothrombin Time (Protime)PT. 39.2 SECONDS (11.7-14.9)
== END ==
PROVIDERS: PCP Family Medicine; Referring Provider Internal Medicine Cardiovascular Disease; Visit Provider Internal Medicine Cardiovascular Disease
DX: Z98.890 Other specified postprocedural states (principal); Z95.2 Presence of prosthetic heart valve; Z79.01 Long term (current) use of anticoagulants
CPT/HCPCS: 36416; 85610

== ENCOUNTER → 2020-05-23 05:06 | Outpatient (CLI) | payer MEDICARE, BC, SELFPAY ==
[2020-02-16 15:06] VITALS: BMI 23.6
[2020-05-23 10:25] LABS: Prothrombin Time Fingerstick 35.3 SEC (11.9-14.4)
== END ==
PROVIDERS: PCP Family Medicine; Referring Provider Internal Medicine Cardiovascular Disease; Visit Provider Internal Medicine Cardiovascular Disease
DX: Z98.890 Other specified postprocedural states (principal); Z95.2 Presence of prosthetic heart valve; Z79.01 Long term (current) use of anticoagulants
CPT/HCPCS: 36416; 85610

== ENCOUNTER → 2020-05-30 08:15 | Outpatient (CLI) | payer MEDICARE, BC, SELFPAY ==
[2020-02-16 15:06] VITALS: BMI 23.6
[2020-05-30 10:45] LABS: Prothrombin Time Fingerstick 29.7 SEC (11.9-14.4)
== END ==
PROVIDERS: PCP Family Medicine; Visit Provider Internal Medicine Cardiovascular Disease
DX: Z98.890 Other specified postprocedural states (principal); Z95.2 Presence of prosthetic heart valve; Z79.01 Long term (current) use of anticoagulants
CPT/HCPCS: 36416; 85610

== ENCOUNTER → 2020-06-15 04:42 | Outpatient (CLI) | payer MEDICARE, BC, SELFPAY ==
[2020-02-16 15:06] VITALS: BMI 23.6
[2020-06-15 10:10] LABS: International Normalized Ratio 4.4
[2020-06-15 11:01] LABS: Prothrombin Time Fingerstick 45.6 SEC (11.9-14.4)
== END ==
PROVIDERS: PCP Family Medicine; Referring Provider Internal Medicine Cardiovascular Disease; Visit Provider Internal Medicine Cardiovascular Disease
DX: Z98.890 Other specified postprocedural states (principal); Z95.2 Presence of prosthetic heart valve; Z79.01 Long term (current) use of anticoagulants
CPT/HCPCS: 36416; 85610

== ENCOUNTER → 2020-06-22 07:45 | Outpatient (CLI) | payer MEDICARE, BC, SELFPAY ==
[2020-02-16 15:06] VITALS: BMI 23.6
[2020-06-22 10:51] LABS: Prothrombin Time Fingerstick 40.6 SEC (11.9-14.4)
[2020-06-22 11:04] LABS: International Normalized Ratio 3.8; Prothrombin Time (Protime)PT. 37.1 SECONDS (11.7-14.9)
== END ==
PROVIDERS: PCP Family Medicine; Referring Provider Internal Medicine Cardiovascular Disease; Visit Provider Internal Medicine Cardiovascular Disease
DX: Z98.890 Other specified postprocedural states (principal); Z95.2 Presence of prosthetic heart valve; Z79.01 Long term (current) use of anticoagulants
CPT/HCPCS: 36416; 85610

== ENCOUNTER → 2020-06-27 04:43 | Outpatient (CLI) | payer MEDICARE, BC, SELFPAY ==
[2020-02-16 15:06] VITALS: BMI 23.6
[2020-06-27 10:33] LABS: Prothrombin Time (Protime)PT. 49.4 SECONDS (11.7-14.9)
[2020-06-27 10:40] LABS: International Normalized Ratio 5.4
[2020-06-27 12:25] LABS: Prothrombin Time Fingerstick 51.8 SEC (11.9-14.4)
== END ==
PROVIDERS: PCP Family Medicine; Referring Provider Internal Medicine Cardiovascular Disease; Visit Provider Internal Medicine Cardiovascular Disease
DX: Z98.890 Other specified postprocedural states (principal); Z95.2 Presence of prosthetic heart valve; Z79.01 Long term (current) use of anticoagulants
CPT/HCPCS: 36416; 85610

== ENCOUNTER → 2020-06-30 04:52 | Outpatient (CLI) | payer MEDICARE, BC, SELFPAY ==
[2020-02-16 15:06] VITALS: BMI 23.6
[2020-06-30 11:26] LABS: Prothrombin Time Fingerstick 19.1 SEC (11.9-14.4)
[2020-06-30 11:48] LABS: International Normalized Ratio 1.6; Prothrombin Time (Protime)PT. 18.6 SECONDS (11.7-14.9)
== END ==
PROVIDERS: PCP Family Medicine; Referring Provider Internal Medicine Cardiovascular Disease; Visit Provider Internal Medicine Cardiovascular Disease
DX: Z98.890 Other specified postprocedural states (principal); Z95.2 Presence of prosthetic heart valve; Z79.01 Long term (current) use of anticoagulants
CPT/HCPCS: 36416; 85610

== ENCOUNTER → 2020-07-06 04:38 | Outpatient (CLI) | payer MEDICARE, BC, SELFPAY ==
[2020-02-16 15:06] VITALS: BMI 23.6
[2020-07-06 10:35] LABS: Prothrombin Time Fingerstick 29.7 SEC (11.9-14.4)
== END ==
PROVIDERS: PCP Family Medicine; Referring Provider Internal Medicine Cardiovascular Disease; Visit Provider Internal Medicine Cardiovascular Disease
DX: Z98.890 Other specified postprocedural states (principal); Z95.2 Presence of prosthetic heart valve; Z79.01 Long term (current) use of anticoagulants
CPT/HCPCS: 36416; 85610

== ENCOUNTER → 2020-07-13 09:01 | Outpatient (CLI) | payer MEDICARE, BC, SELFPAY ==
[2020-02-16 15:06] VITALS: BMI 23.6
[2020-07-13 09:35] LABS: Prothrombin Time Fingerstick 32.1 SEC (11.9-14.4)
== END ==
PROVIDERS: PCP Family Medicine; Referring Provider Internal Medicine Cardiovascular Disease; Visit Provider Internal Medicine Cardiovascular Disease
DX: Z98.890 Other specified postprocedural states (principal); Z95.2 Presence of prosthetic heart valve; Z79.01 Long term (current) use of anticoagulants
CPT/HCPCS: 36416; 85610

== ENCOUNTER → 2020-07-27 07:56 | Outpatient (CLI) | payer MEDICARE, BC, SELFPAY ==
[2020-02-16 15:06] VITALS: BMI 23.6
[2020-07-27 10:25] LABS: INR Fingerstick 1.9; Prothrombin Time Fingerstick 22.3 SEC (11.9-14.4)
== END ==
PROVIDERS: PCP Family Medicine; Referring Provider Internal Medicine Cardiovascular Disease; Visit Provider Internal Medicine Cardiovascular Disease
DX: Z98.890 Other specified postprocedural states (principal); Z95.2 Presence of prosthetic heart valve; Z79.01 Long term (current) use of anticoagulants
CPT/HCPCS: 36416; 85610

== ENCOUNTER → 2020-08-03 07:44 | Outpatient (CLI) | payer MEDICARE, BC, SELFPAY ==
[2020-02-16 15:06] VITALS: BMI 23.6
[2020-08-03 09:46] LABS: INR Fingerstick 2.1; Prothrombin Time Fingerstick 23.9 SEC (11.9-14.4)
== END ==
PROVIDERS: PCP Family Medicine; Visit Provider Internal Medicine Cardiovascular Disease
DX: Z98.890 Other specified postprocedural states (principal); Z95.2 Presence of prosthetic heart valve; Z79.01 Long term (current) use of anticoagulants
CPT/HCPCS: 36416; 85610

== ENCOUNTER → 2020-08-10 08:19 | Outpatient (CLI) | payer MEDICARE, BC, SELFPAY ==
[2020-02-16 15:06] VITALS: BMI 23.6
[2020-08-10 09:31] LABS: INR Fingerstick 2.3; Prothrombin Time Fingerstick 25.5 SEC (11.9-14.4)
== END ==
PROVIDERS: PCP Family Medicine; Visit Provider Internal Medicine Cardiovascular Disease
DX: Z98.890 Other specified postprocedural states (principal); Z95.2 Presence of prosthetic heart valve; Z79.01 Long term (current) use of anticoagulants
CPT/HCPCS: 36416; 85610

== ENCOUNTER → 2020-08-22 08:01 | Outpatient (CLI) | payer MEDICARE, BC, SELFPAY ==
[2020-02-16 15:06] VITALS: BMI 23.6
[2020-08-22 11:25] LABS: INR Fingerstick 3.6; Prothrombin Time Fingerstick 38.7 SEC (11.9-14.4)
== END ==
PROVIDERS: PCP Family Medicine; Referring Provider Internal Medicine Cardiovascular Disease; Visit Provider Internal Medicine Cardiovascular Disease
DX: Z98.890 Other specified postprocedural states (principal); Z95.2 Presence of prosthetic heart valve; Z79.01 Long term (current) use of anticoagulants
CPT/HCPCS: 36416; 85610

== ENCOUNTER → 2020-08-31 09:09 | Outpatient (CLI) | payer MEDICARE, BC, SELFPAY ==
[2020-02-16 15:06] VITALS: BMI 23.6
[2020-08-31 10:01] LABS: INR Fingerstick 2.9; Prothrombin Time Fingerstick 32.4 SEC (11.9-14.4)
== END ==
PROVIDERS: PCP Family Medicine; Visit Provider Internal Medicine Cardiovascular Disease
DX: Z98.890 Other specified postprocedural states (principal); Z95.2 Presence of prosthetic heart valve; Z79.01 Long term (current) use of anticoagulants
CPT/HCPCS: 36416; 85610

== ENCOUNTER → 2020-09-14 04:33 | Outpatient (CLI) | payer MEDICARE, BC, SELFPAY ==
[2020-02-16 15:06] VITALS: BMI 23.6
[2020-09-14 09:36] LABS: INR Fingerstick 4.1; Prothrombin Time Fingerstick 43.9 SEC (11.9-14.4)
[2020-09-14 10:00] LABS: Prothrombin Time (Protime)PT. 44.9 SECONDS (11.7-14.9)
[2020-09-14 10:47] LABS: International Normalized Ratio 4.9
== END ==
PROVIDERS: PCP Family Medicine; Referring Provider Internal Medicine Cardiovascular Disease; Visit Provider Internal Medicine Cardiovascular Disease
DX: Z95.2 Presence of prosthetic heart valve (principal); Z79.01 Long term (current) use of anticoagulants; Z98.890 Other specified postprocedural states
CPT/HCPCS: 36416; 85610

== ENCOUNTER → 2020-09-19 15:49 | Outpatient (CLI) | payer MEDICARE, BC, SELFPAY ==
[2020-02-16 15:06] VITALS: BMI 23.6
[2020-09-19 17:44] LABS: PSA,Total- Diagnostic 1.07 ng/mL (0.0-4.0)
== END ==
PROVIDERS: PCP Family Medicine; Referring Provider Urology; Visit Provider Urology
DX: N40.1 Benign prostatic hyperplasia with lower urinary tract symptoms (principal)
CPT/HCPCS: 36415; 84153

== ENCOUNTER → 2020-09-21 08:04 | Outpatient (CLI) | payer MEDICARE, BC, SELFPAY ==
[2020-02-16 15:06] VITALS: BMI 23.6
[2020-09-21 10:02] LABS: INR Fingerstick 3.6; Prothrombin Time Fingerstick 39.5 SEC (11.9-14.4)
== END ==
PROVIDERS: PCP Family Medicine; Referring Provider Internal Medicine Cardiovascular Disease; Visit Provider Internal Medicine Cardiovascular Disease
DX: Z98.890 Other specified postprocedural states (principal); Z95.2 Presence of prosthetic heart valve; Z79.01 Long term (current) use of anticoagulants
CPT/HCPCS: 36416; 85610

== ENCOUNTER → 2020-09-26 14:55 | Outpatient (CLI) | payer MEDICARE, BC, SELFPAY ==
[2020-02-16 15:06] VITALS: BMI 23.6
[2020-09-26 17:38] LABS: Absolute Lymphocyte Count 1.39 X10^3/uL (0.83-4.51); Absolute Neutrophil Count 2.4 X10^3/uL (2.0-7.7); Basophil# 0.01 X10^3/uL; Basophil% 0.2 % (0-1); Eosinophils% 2.3 % (0-5); Hematocrit 45.2 % (40-54); Lymphocyte # 1.39 X10^3/ul (0.83-4.51); Lymphocyte % 31.5 % (19-41); Mean Corp Hgb Conc 33.2 g/dL (32-36); Mean Corpuscular Hgb 31.4 pg (27.0-32.0); Mean Corpuscular Volume 94.8 fL (80-94); Monocyte# 0.52 X10^3/uL; Monocyte% 11.8 % (0-10); NRBC Flagged by Analyzer 0 % (0-5); Neutrophil # 2.38 X10^3/uL (2.7-7.7); Platelet Count 137 K/mm3 (150-450); RBC Distribution Width CV 11.6 % (11.6-14.6); Red Blood Count 4.77 M/mm3 (4.6-6.2); White Blood Count 4.4 K/mm3 (4.4-11.0)
[2020-09-26 18:10] LABS: AST(SGOT) 26 U/L (15-37); Alanine Aminotransfer ALT/SGPT 29 U/L (16-61); Albumin, Serum 3.8 g/dL (3.2-5.0); Alkaline Phosphatase 111 U/L (45-117); Bilirubin, Direct 0.14 mg/dL (0.00-0.30); Globulin 3.5 g/dL (2.2-4.2); Protein, Total 7.3 g/dL (6.4-8.2)
[2020-09-26 18:25] LABS: Phenytoin (Dilantin) Level 8.1 mL (10.0-20.0)
== END ==
PROVIDERS: PCP Family Medicine; Referring Provider Psychiatry & Neurology Neurology; Visit Provider Psychiatry & Neurology Neurology
DX: G40.919 Epilepsy, unspecified, intractable, without status epilepticus (principal)
CPT/HCPCS: 36415; 80076; 80185; 85025

== ENCOUNTER → 2020-09-28 08:52 | Outpatient (CLI) | payer MEDICARE, BC, SELFPAY ==
[2020-02-16 15:06] VITALS: BMI 23.6
[2020-09-28 09:51] LABS: INR Fingerstick 1.9
== END ==
PROVIDERS: PCP Family Medicine; Referring Provider Internal Medicine Cardiovascular Disease; Visit Provider Internal Medicine Cardiovascular Disease
DX: Z98.890 Other specified postprocedural states (principal); Z95.2 Presence of prosthetic heart valve; Z79.01 Long term (current) use of anticoagulants
CPT/HCPCS: 36416; 85610

== ENCOUNTER → 2020-10-05 09:28 | Outpatient (CLI) | payer MEDICARE, BC, SELFPAY ==
[2020-02-16 15:06] VITALS: BMI 23.6
[2020-10-05 11:45] LABS: INR Fingerstick 2.8; Prothrombin Time Fingerstick 30.7 SEC (11.9-14.4)
== END ==
PROVIDERS: PCP Family Medicine; Visit Provider Internal Medicine Cardiovascular Disease
DX: Z98.890 Other specified postprocedural states (principal); Z95.2 Presence of prosthetic heart valve; Z79.01 Long term (current) use of anticoagulants
CPT/HCPCS: 36416; 85610

== ENCOUNTER → 2020-10-19 08:42 | Outpatient (CLI) | payer MEDICARE, BC, SELFPAY ==
[2020-02-16 15:06] VITALS: BMI 23.6
[2020-10-19 10:45] LABS: INR Fingerstick 3.7; Prothrombin Time Fingerstick 40.5 SEC (11.9-14.4)
== END ==
PROVIDERS: PCP Family Medicine; Visit Provider Internal Medicine Cardiovascular Disease
DX: Z98.890 Other specified postprocedural states (principal); Z95.2 Presence of prosthetic heart valve; Z79.01 Long term (current) use of anticoagulants
CPT/HCPCS: 36416; 85610

== ENCOUNTER → 2020-11-02 09:23 | Outpatient (CLI) | payer MEDICARE, BC, SELFPAY ==
[2020-02-16 15:06] VITALS: BMI 23.6
[2020-11-02 10:21] LABS: INR Fingerstick 2.6; Prothrombin Time Fingerstick 28.6 SEC (11.9-14.4)
== END ==
PROVIDERS: PCP Family Medicine; Referring Provider Internal Medicine Cardiovascular Disease; Visit Provider Internal Medicine Cardiovascular Disease
DX: Z98.890 Other specified postprocedural states (principal); Z95.2 Presence of prosthetic heart valve; Z79.01 Long term (current) use of anticoagulants
CPT/HCPCS: 36416; 85610

== ENCOUNTER → 2020-11-09 09:21 | Outpatient (CLI) | payer MEDICARE, BC, SELFPAY ==
[2020-02-16 15:06] VITALS: BMI 23.6
[2020-11-09 11:00] LABS: INR Fingerstick 3.2; Prothrombin Time Fingerstick 35.3 SEC (11.9-14.4)
== END ==
PROVIDERS: PCP Family Medicine; Referring Provider Internal Medicine Cardiovascular Disease; Visit Provider Internal Medicine Cardiovascular Disease
DX: Z98.890 Other specified postprocedural states (principal); Z95.2 Presence of prosthetic heart valve; Z79.01 Long term (current) use of anticoagulants
CPT/HCPCS: 36416; 85610

== ENCOUNTER → 2020-11-23 05:05 | Outpatient (CLI) | payer MEDICARE, BC, SELFPAY ==
[2020-02-16 15:06] VITALS: BMI 23.6
[2020-11-23 10:41] LABS: INR Fingerstick 3.2; Prothrombin Time Fingerstick 35.5 SEC (11.9-14.4)
== END ==
PROVIDERS: PCP Family Medicine; Referring Provider Internal Medicine Cardiovascular Disease; Visit Provider Internal Medicine Cardiovascular Disease
DX: Z98.890 Other specified postprocedural states (principal); Z95.2 Presence of prosthetic heart valve; Z79.01 Long term (current) use of anticoagulants
CPT/HCPCS: 36416; 85610

== ENCOUNTER → 2020-12-13 07:14 | Outpatient (CLI) | payer MEDICARE, BC, SELFPAY ==
[2020-02-16 15:06] VITALS: BMI 23.6
[2020-12-13 10:28] LABS: Prothrombin Time (Protime)PT. 21.9 SECONDS (11.7-14.9)
[2020-12-13 10:58] LABS: ALB/GLOB Ratio 1.2 RATIO (0.9-2.4); AST(SGOT) 27 U/L (15-37); Alanine Aminotransfer ALT/SGPT 31 U/L (16-61); Albumin, Serum 3.7 g/dL (3.2-5.0); Alkaline Phosphatase 108 U/L (45-117); Anion Gap 7 (5-15); BUN 18 mg/dL (7-18); BUN/Creat Ratio 19.6 RATIO (10-20); Calcium,Total 8.3 mg/dL (8.5-10.1); Chloride 109 mmol/L (98-107); Cholesterol 146 mg/dL (200); Creatinine, Serum 0.92 mg/dL (0.70-1.30); EST Glomerular Filtration Rate 85 mL/min (>60); Est Glom Filt Rate - Afr Amer 103 mL/min (>60); Globulin 3.2 g/dL (2.2-4.2); Glucose 76 mg/dL (74-106); High Density Lipoprotein 66 mg/dL; Magnesium 2.3 mg/dL (1.6-2.6); Phosphorus 2.7 mg/dL (2.5-4.9); Potassium 3.8 mmol/L (3.5-5.1); Protein, Total 6.9 g/dL (6.4-8.2); Sodium Level 140 mmol/L (136-145); Thyroid Stim Hormone (TSH) 2.01 uIU/mL (0.358-3.74); Triglycerides 93 mg/dL; Very Low Density Lipoprotein 19 mg/dL (5-40)
[2020-12-13 11:28] LABS: PTHIN 43.8 pg/mL (18.4-80.1)
[2020-12-13 11:30] LABS: Vitamin B12 681 pg/mL (211-911)
== END ==
PROVIDERS: PCP Family Medicine; Referring Provider Family Medicine; Visit Provider Internal Medicine Cardiovascular Disease
DX: E78.5 Hyperlipidemia, unspecified (principal); Z79.01 Long term (current) use of anticoagulants; Z95.2 Presence of prosthetic heart valve; Z98.890 Other specified postprocedural states; E55.9 Vitamin D deficiency, unspecified; E53.8 Deficiency of other specified B group vitamins; M81.0 Age-related osteoporosis without current pathological fracture
CPT/HCPCS: 36415; 80053; 80061; 82306; 82330; 82607; 83735; 83970; 84100; 84443; 85610

== ENCOUNTER → 2020-12-21 04:21 | Outpatient (CLI) | payer MEDICARE, BC, SELFPAY ==
[2020-12-21 09:16] LABS: INR Fingerstick 3.3; Prothrombin Time Fingerstick 36.4 SEC (11.9-14.4)
== END ==
PROVIDERS: PCP Family Medicine; Visit Provider Internal Medicine Cardiovascular Disease
DX: Z98.890 Other specified postprocedural states (principal); Z95.2 Presence of prosthetic heart valve; Z79.01 Long term (current) use of anticoagulants
CPT/HCPCS: 36416; 85610

== ENCOUNTER → 2021-01-04 04:27 | Outpatient (CLI) | payer MEDICARE, BC, SELFPAY ==
[2021-01-04 10:51] LABS: INR Fingerstick 3.2; Prothrombin Time Fingerstick 35.3 SEC (11.9-14.4)
== END ==
PROVIDERS: PCP Family Medicine; Referring Provider Internal Medicine Cardiovascular Disease; Visit Provider Internal Medicine Cardiovascular Disease
DX: Z98.890 Other specified postprocedural states (principal); Z95.2 Presence of prosthetic heart valve; Z79.01 Long term (current) use of anticoagulants
CPT/HCPCS: 36416; 85610

== ENCOUNTER → 2021-01-10 14:05 | Outpatient (CLI) | payer MEDICARE, BC, SELFPAY ==
--- NOTE | 2021-01-10 14:07 | ECHOD_ITS ---
Reason For Study: Valve Replacement Eval Procedure This was a 2D Doppler, Color Flow transthoracic echocardiogram. The study was technically difficult. Exam performed in department. Left Ventricle Normal LV size. Sigmoid septum. Left ventricular systolic function is normal. The estimated ejection fraction is 60 %. Post operative septal motion. Diastolic function is indeterminate. No regional wall motion abnormalities noted. Right Ventricle Normal RV size. Normal systolic function. Atria The left atrium is mildly enlarged. Normal right atrium. No doppler evidence for ASD. Mitral Valve There is no mitral annular calcification. Normal mitral valve. Trivial mitral valve insufficiency. Tricuspid Valve Normal tricuspid valve. Trivial tricuspid valve insufficiency. Right ventricular systolic pressure estimated to be 23 mmHg. Aortic Valve Mild aortic stenosis. Stable appearing bioprosthetic aortic valve apparatus. Pulmonic Valve The pulmonic valve is not well visualized. Trivial pulmonic valve insufficiency. Great Vessels Moderately dilated aortic root. Pericardium/Pleural No pericardial effusion. MMode/2D Measurements & Calculations LVIDd: 4.5 cm IVSd: 1.2 cm LVOT diam: 2.0 cm LVIDs: 3.1 cm LVPWd: 1.0 cm LVOT area: 3.0 cm2 FS: 31.7 % Ao root diam: 4.9 cm LAV(MOD-sp4): 31.2 ml LA A4 area: 13.0 cm2 LA dimension: 3.4 cm RA A4 area: 14.2 cm2 Time Measurements MV dec time: 0.45 sec Doppler Measurements & Calculations MV E max sunny: 57.6 cm/sec Lat Peak E' Sunny: 8.5 cm/sec Med Peak E' Sunny: 5.8 cm/sec MV A max sunny: 102.2 cm/sec E/E' lat: 6.8 E/E' med: 9.9 MV E/A: 0.56 MV V2 max: 88.9 cm/sec MV P1/2t max sunny: 57.4 cm/sec Ao V2 max: 193.0 cm/sec MV max P.2 mmHg MV P1/2t: 126.9 msec Ao max P.9 mmHg MV V2 mean: 41.7 cm/sec Ao V2 mean: 130.3 cm/sec MV mean P.83 mmHg MV dec slope: 132.5 cm/sec2 Ao mean P.0 mmHg MV V2 VTI: 27.7 cm MVA(P1/2t): 1.7 cm2 Ao V2 VTI: 33.9 cm MVA(VTI): 1.9 cm2 ROXANNE(I,D): 1.6 cm2 ROXANNE(V,D): 1.3 cm2 LV V1 max: 84.8 cm/sec SV(LVOT): 53.5 ml PA V2 max: 85.7 cm/sec LV V1 max P.9 mmHg LV V1 mean P.5 mmHg LV V1 mean: 58.4 cm/sec LV V1 VTI: 17.7 cm PI dec slope: 84.0 cm/sec2 TR max sunny: 221.9 cm/sec TR max P.7 mmHg ECHO/Echo Complete Interpretation Summary The study was technically difficult. Left ventricular systolic function is normal. The estimated ejection fraction is 60 %. Post operative septal motion. Sigmoid septum. The left atrium is mildly enlarged. Trivial mitral valve insufficiency. Trivial tricuspid valve insufficiency. Stable appearing bioprosthetic aortic valve apparatus. Mild aortic stenosis. Trivial pulmonic valve insufficiency. Moderately dilated aortic root. Right ventricular systolic pressure estimated to be 23 mmHg. Diastolic function is indeterminate. Ordering Physician: Eran Zimmer Referring Physician: William Flores Performed By: Jayme Fermin RCS
== END ==
PROVIDERS: PCP Family Medicine; Referring Provider Internal Medicine Cardiovascular Disease; Visit Provider Internal Medicine Cardiovascular Disease
DX: Z98.890 Other specified postprocedural states (principal); Z95.2 Presence of prosthetic heart valve
CPT/HCPCS: 93306

== ENCOUNTER → 2021-01-25 08:05 | Outpatient (CLI) | payer MEDICARE, BC, SELFPAY ==
[2021-01-25 10:46] LABS: INR Fingerstick 3.5; Prothrombin Time Fingerstick 38.4 SEC (11.9-14.4)
== END ==
PROVIDERS: PCP Family Medicine; Visit Provider Internal Medicine Cardiovascular Disease
DX: Z98.890 Other specified postprocedural states (principal); Z95.2 Presence of prosthetic heart valve; Z79.01 Long term (current) use of anticoagulants
CPT/HCPCS: 36416; 85610

== ENCOUNTER → 2021-02-08 10:13 | Outpatient (CLI) | payer MEDICARE, BC, SELFPAY ==
[2020-02-16 15:06] VITALS: BMI 23.6
--- NOTE | 2021-02-08 10:35 | BD_ITS ---
STUDY: DUAL ENERGY X-RAY ABSORPTIOMETRY / DXA REASON FOR EXAM: Male, 80 years old. 733.00OsteoporosisBONE DENSITY REASON FOR EXAM TECHNIQUE: Bone Mineral Density (BMD) measurements of lumbar spine and bilateral hips were obtained. COMPARISON: Comparison is made with prior examination of 01/28/2019. FINDINGS: Lumbar Spine (L1-L4): g/cm2 (0.968) / T-score (-1.1) / Z-score (0.0) Findings are suggestive of osteopenia with a low fracture risk. Left Femur Total: g/cm2 (0.682) / T-score (-2.3) / Z-score (-1.3) Left Femoral Neck: g/cm2 (0.572) / T-score (-2.6) / Z-score (-1.2) Right Femur Total: g/cm2 (0.741) / T-score (-1.9) / Z-score (-1.0) Right Femoral Neck: g/cm2 (0.537) / T-score (-2.9) / Z-score (-1.4) The T-Scores on the most recent prior examination were: Lumbar Spine (L1-L4): There has been worsening of bone density since the previous examination. Left Femur Total: which represents an improvement of 8.4%. Right Femur Total: which represents an improvement of 6.2%. BD/Dexa Bone Density Study IMPRESSION: The patient is considered osteoporotic as outlined below according to World Aydin Organization (WHO) criteria with a high fracture risk. There has been improvement of bone density since the previous examination. Reference Information: The T-score is the number of standard deviations above or below the standard which is normal for young adults at their peak bone mineral density. The World Health Organization (WHO) interprets the T-scores as follows: Above -1 Normal bone density Between -1 and -2.5 Osteopenia Equal to / or below -2.5 Osteoporosis As a practical clinical guideline, osteopenia may be graded as follows: Mild -1 through -1.5 Moderate -1.6 through -2.0 Severe -2.1 through -2.4 The Z-score is the number of standard deviations above or below age-matched controls. A Z-score of less than -1.5 would be considered abnormal. References: 1. NIH Osteoporosis and Related Bone Diseases www osteo.org 2. International Society for Clinical Densitometry www iscd.org 3. National Osteoporosis Foundation www nof.org Electronically Signed: Ricky Rahman MD at 10:12 EDT , Service support ,
== END ==
PROVIDERS: PCP Family Medicine; Referring Provider Family Medicine; Visit Provider Family Medicine
DX: M81.0 Age-related osteoporosis without current pathological fracture (principal)
CPT/HCPCS: 77080

== ENCOUNTER → 2021-02-15 09:11 | Outpatient (CLI) | payer MEDICARE, BC, SELFPAY ==
[2021-02-15 10:40] LABS: INR Fingerstick 3.9; Prothrombin Time Fingerstick 42.3 SEC (11.9-14.4)
== END ==
PROVIDERS: PCP Family Medicine; Visit Provider Internal Medicine Cardiovascular Disease
DX: Z98.890 Other specified postprocedural states (principal); Z95.2 Presence of prosthetic heart valve; Z79.01 Long term (current) use of anticoagulants
CPT/HCPCS: 36416; 85610

== ENCOUNTER → 2021-03-01 09:05 | Outpatient (CLI) | payer MEDICARE, BC, SELFPAY ==
[2021-03-01 12:50] LABS: INR Fingerstick 2.9
== END ==
PROVIDERS: PCP Family Medicine; Visit Provider Internal Medicine Cardiovascular Disease
DX: Z98.890 Other specified postprocedural states (principal); Z95.2 Presence of prosthetic heart valve; Z79.01 Long term (current) use of anticoagulants
CPT/HCPCS: 36416; 85610

== ENCOUNTER → 2021-03-15 07:40 | Outpatient (CLI) | payer MEDICARE, BC, SELFPAY ==
[2021-03-15 10:10] LABS: INR Fingerstick 4.2; Prothrombin Time Fingerstick 44.8 SEC (11.9-14.4)
[2021-03-15 10:37] LABS: Prothrombin Time (Protime)PT. 42.5 SECONDS (11.7-14.9)
[2021-03-15 10:39] LABS: International Normalized Ratio 4.6
== END ==
PROVIDERS: PCP Family Medicine; Visit Provider Internal Medicine Cardiovascular Disease
DX: Z98.890 Other specified postprocedural states (principal); Z95.2 Presence of prosthetic heart valve; Z79.01 Long term (current) use of anticoagulants
CPT/HCPCS: 36416; 85610

== ENCOUNTER → 2021-03-19 09:35 | Outpatient (CLI) | payer MEDICARE, BC, SELFPAY ==
[2021-03-19 11:15] LABS: INR Fingerstick 3.1; Prothrombin Time Fingerstick 34.1 SEC (11.9-14.4)
== END ==
PROVIDERS: PCP Family Medicine; Visit Provider Internal Medicine Cardiovascular Disease
DX: Z98.890 Other specified postprocedural states (principal); Z95.2 Presence of prosthetic heart valve; Z79.01 Long term (current) use of anticoagulants
CPT/HCPCS: 36416; 85610

== ENCOUNTER → 2021-04-02 09:37 | Outpatient (CLI) | payer MEDICARE, BC, SELFPAY ==
[2021-04-02 10:45] LABS: INR Fingerstick 3.4; Prothrombin Time Fingerstick 37.5 SEC (11.9-14.4)
== END ==
PROVIDERS: PCP Family Medicine; Visit Provider Internal Medicine Cardiovascular Disease
DX: Z98.890 Other specified postprocedural states (principal); Z95.2 Presence of prosthetic heart valve; Z79.01 Long term (current) use of anticoagulants
CPT/HCPCS: 36416; 85610

== ENCOUNTER → 2021-04-10 09:20 | Outpatient (CLI) | payer MEDICARE, BC, SELFPAY ==
[2021-04-10 10:26] LABS: INR Fingerstick 1.3; Prothrombin Time Fingerstick 15.8 SEC (11.9-14.4)
== END ==
PROVIDERS: PCP Family Medicine; Visit Provider Internal Medicine Cardiovascular Disease
DX: Z98.890 Other specified postprocedural states (principal); Z95.2 Presence of prosthetic heart valve; Z79.01 Long term (current) use of anticoagulants
CPT/HCPCS: 36416; 85610

== ENCOUNTER → 2021-04-12 09:26 | Outpatient (CLI) | payer MEDICARE, BC, SELFPAY ==
[2021-04-12 10:15] LABS: International Normalized Ratio 2.3; Prothrombin Time (Protime)PT. 24.6 SECONDS (11.7-14.9)
== END ==
PROVIDERS: PCP Family Medicine; Visit Provider Internal Medicine Cardiovascular Disease
DX: Z98.890 Other specified postprocedural states (principal); Z95.2 Presence of prosthetic heart valve; Z79.01 Long term (current) use of anticoagulants
CPT/HCPCS: 85610

== ENCOUNTER → 2021-04-19 08:14 | Outpatient (CLI) | payer MEDICARE, BC, SELFPAY ==
[2021-04-19 11:01] LABS: INR Fingerstick 2.6; Prothrombin Time Fingerstick 29.2 SEC (11.9-14.4)
== END ==
PROVIDERS: PCP Family Medicine; Visit Provider Internal Medicine Cardiovascular Disease
DX: Z98.890 Other specified postprocedural states (principal); Z95.2 Presence of prosthetic heart valve; Z79.01 Long term (current) use of anticoagulants
CPT/HCPCS: 36416; 85610

== ENCOUNTER → 2021-05-03 09:40 | Outpatient (CLI) | payer MEDICARE, BC, SELFPAY ==
[2021-05-03 10:46] LABS: INR Fingerstick 1.9; Prothrombin Time Fingerstick 21.6 SEC (11.9-14.4)
== END ==
PROVIDERS: PCP Family Medicine; Referring Provider Internal Medicine Cardiovascular Disease; Visit Provider Internal Medicine Cardiovascular Disease
DX: Z98.890 Other specified postprocedural states (principal); Z95.2 Presence of prosthetic heart valve; Z79.01 Long term (current) use of anticoagulants
CPT/HCPCS: 36416; 85610

== ENCOUNTER 2021-05-10 09:26 | Outpatient (CLI) | payer MEDICARE, BC, SELFPAY ==
[2021-05-10 10:51] LABS: INR Fingerstick 2.5; Prothrombin Time Fingerstick 27.8 SEC (11.9-14.4)
== END 2021-05-10 23:59 | disposition short-term general hospital (02) ==
LOC: LAB 09:29
PROVIDERS: PCP Family Medicine; Referring Provider Internal Medicine Cardiovascular Disease; Visit Provider Internal Medicine Cardiovascular Disease
DX: Z95.2 Presence of prosthetic heart valve (principal); Z79.01 Long term (current) use of anticoagulants
CPT/HCPCS: 36416; 85610

== ENCOUNTER 2021-05-17 09:21 | Outpatient (CLI) | payer MEDICARE, BC, SELFPAY ==
[2021-05-17 11:00] LABS: INR Fingerstick 3.7; Prothrombin Time Fingerstick 40.2 SEC (11.9-14.4)
== END 2021-05-17 23:59 | disposition short-term general hospital (02) ==
LOC: LAB 09:23
PROVIDERS: PCP Family Medicine; Referring Provider Internal Medicine Cardiovascular Disease; Visit Provider Internal Medicine Cardiovascular Disease
DX: Z95.2 Presence of prosthetic heart valve (principal); Z79.01 Long term (current) use of anticoagulants; Z98.890 Other specified postprocedural states
CPT/HCPCS: 36416; 85610

== ENCOUNTER 2021-05-31 09:03 | Outpatient (CLI) | payer MEDICARE, BC, SELFPAY ==
[2021-05-31 11:45] LABS: INR Fingerstick 2.2; Prothrombin Time Fingerstick 25.7 SEC (11.9-14.4)
== END 2021-05-31 23:59 | disposition short-term general hospital (02) ==
LOC: LAB 09:05
PROVIDERS: PCP Family Medicine; Referring Provider Internal Medicine Cardiovascular Disease; Visit Provider Internal Medicine Cardiovascular Disease
DX: Z95.2 Presence of prosthetic heart valve (principal); Z79.01 Long term (current) use of anticoagulants; Z98.890 Other specified postprocedural states
CPT/HCPCS: 36416; 85610

== ENCOUNTER 2021-06-06 12:06 | Outpatient (CLI) | payer MEDICARE, BC, SELFPAY ==
[2021-06-06 13:46] LABS: INR Fingerstick 3.2
== END 2021-06-06 23:59 | disposition short-term general hospital (02) ==
LOC: LAB 12:08
PROVIDERS: PCP Family Medicine; Referring Provider Internal Medicine Cardiovascular Disease; Visit Provider Internal Medicine Cardiovascular Disease
DX: Z98.890 Other specified postprocedural states (principal); Z95.2 Presence of prosthetic heart valve; Z79.01 Long term (current) use of anticoagulants
CPT/HCPCS: 36416; 85610

== ENCOUNTER 2021-06-21 09:19 | Outpatient (CLI) | payer MEDICARE, BC, SELFPAY ==
[2021-06-21 10:31] LABS: Prothrombin Time Fingerstick 33.9 SEC (11.9-14.4)
== END 2021-06-21 23:59 | disposition home or self-care (01) ==
LOC: LAB 09:21
PROVIDERS: PCP Family Medicine; Referring Provider Internal Medicine Cardiovascular Disease; Visit Provider Internal Medicine Cardiovascular Disease
DX: Z98.890 Other specified postprocedural states (principal); Z95.2 Presence of prosthetic heart valve; Z79.01 Long term (current) use of anticoagulants
CPT/HCPCS: 36416; 85610

== ENCOUNTER → 2021-07-12 09:33 | Outpatient (CLI) | payer MEDICARE, BC, SELFPAY ==
[2021-07-12 11:16] LABS: INR Fingerstick 1.7; Prothrombin Time Fingerstick 20.6 SEC (11.7-14.9)
== END ==
PROVIDERS: PCP Family Medicine; Referring Provider Internal Medicine Cardiovascular Disease; Visit Provider Internal Medicine Cardiovascular Disease
DX: Z79.01 Long term (current) use of anticoagulants (principal); Z95.2 Presence of prosthetic heart valve
CPT/HCPCS: 36416; 85610

== ENCOUNTER 2021-07-15 17:30 | Emergency (ER) | payer MEDICARE, BC, SELFPAY ==
[2021-07-15 17:31] VITALS: BP 137/91; PULSE 58; RESP 14; TEMP 36.1; O2SAT 96; BMI 22.8
--- NOTE | 2021-07-15 17:45 | CT_ITS ---
STUDY: CT ABDOMEN AND PELVIS WITHOUT CONTRAST REASON FOR EXAM: Male, 80 years old. scrotal pain w/o tenderness RADIATION DOSAGE (If Supplied By Facility): CTDIvol = ( 6.13 ) mGy, DLP = ( 361.17 ) mGycm TECHNIQUE: Transaxial images were obtained from the dome of the diaphragm to the symphysis pubis without oral contrast, and without intravenous contrast. Sagittal and coronal images were reconstructed. Individualized dose optimization techniques were used for this CT. COMPARISON: None. FINDINGS: This study is limited due to lack of intravenous contrast. Trace left-sided pleural effusion. Unremarkable liver, spleen, pancreas, adrenals, and gallbladder on this unenhanced study. Bilateral renal cortical cysts measuring up to 7 cm in diameter. A 0.2 cm dystrophic cortical calcification in the inferolateral aspect of the right kidney. Normal appendix. Moderate to large amount of retained stool throughout the colon with no evidence of bowel obstruction. No free air or free fluid. No adenopathy. Vascular calcification. No abdominal aortic aneurysm. Sections through the pelvis demonstrate a markedly enlarged prostate causing mass effect on the neck of the urinary bladder. Prostatic seeds are in place. There appears to be a large right-sided hydrocele/hematocele. Multilevel thoracolumbar spondylosis. L2 hemangioma. Minimal dextro scoliosis of the lumbar spine. Osteoarthritis of the bilateral hip joints. Small sclerotic foci in the intertrochanteric region of the L1 vertebral body, probably bone islands but nonspecific. Whole body bone scan may be obtained this patient with evidence of prior malignant prostate neoplasm. Diffuse osteopenia.: Large right-sided hydrocele/hematocele. Ultrasound may be obtained for further evaluation. Moderate to large amount of retained stool throughout the colon with no evidence of bowel obstruction. Other chronic findings as above. Electronically Signed: Niko Kwok MD at 19:11 EDT , CT/Abdomen/Pelvis without Cont
--- NOTE | 2021-07-15 17:46 | EDS_ITS ---
HPI History of Present Illness Chief Complaint: Male Pain/Injury Informant: patient Pain Onset: Hours (3) Context: - (Awoke from nap with pain) Timing: Continuous Current Severity: Moderate Maximum Severity: Moderate Worsened by: Nothing Relieved by: Nothing has not tried anything Appearance Lesion(s): No Genital Edema: No Urinary Symptoms Genitourinary Symptoms: No Symptoms Narrative Narrative: Patient states he woke up with pain in the genital region. He states it is hard to localize exactly where it is, he just points to the entire area of his genitals. It is nonlateralizing and he denies any discomfort above that in his abdomen where his low back. No nausea, vomiting, fevers. He has urinated without any difficulty. States he has had trouble making a good stream of urine since his stroke more than 2 decades ago, and none of those symptoms are different today. He is on warfarin because of a mechanical heart valve, denies any hematuria or bleeding from anywhere else. [facility] Medical History (Updated 07/15/21 @ 22:[address] 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 Muscle spasms of neck Osteoarthritis of right knee Pseudogout Seizure Seizure disorder Seizure disorder Stroke Thoracic aortic aneurysm Urinary retention Home Medications levetiracetam 1,500 mg PO QHS 02/15/13 [History Last Taken 11/28/17 19:00] finasteride 5 mg PO QHS 06/02/14 [History Last Taken 11/28/17 19:00] calcium carbonate 600 mg calcium (1,500 mg) tablet 600 mg PO BID tab 05/23/17 [History Last Taken Unknown] levetiracetam 1,000 mg tablet 1,000 mg PO DAILY 05/23/17 [History Last Taken Unknown] ncplbpsm-bbi-ezpoc acid 0.4 mg-lycopene 300 mcg-lutein 250 mcg tablet 1 tab PO QDAY 05/23/17 [History Last Taken Unknown] phenytoin sodium extended 100 mg capsule 100 mg PO BID cap 05/23/17 [History Last Taken 11/28/17 19:00] alendronate 70 mg tablet 70 mg PO QWEEK 28 Days #4 08/05/17 [History Last Taken 11/23/17] rosuvastatin 5 mg tablet 5 mg PO QHS 90 Days #90 08/05/17 [History Last Taken 11/28/17 19:00] tamsulosin 0.4 mg capsule 0.4 mg PO BID 08/05/17 [History Last Taken 11/28/17 19:00] cyanocobalamin (vitamin B-12) 500 mcg tablet 1,000 mcg PO .COMPLEX tab 12/10/17 [History Last Taken Unknown] donepezil 10 mg tablet 10 mg PO DAILY 02/16/20 [History Last Taken Unknown] ergocalciferol (vitamin D2) 1,250 mcg (50,000 unit) capsule 50,000 unit PO Q2W cap 02/16/20 [History Last Taken Unknown] warfarin 5 mg tablet 5 mg PO .COMPLEX #90 tab 03/29/20 [Rx Last Taken Unknown] warfarin 7.5 mg tablet 7.5 mg PO .COMPLEX #30 tab 03/09/21 [Rx Last Taken Unknown] warfarin 1 mg tablet See Rx Instructions .ROUTE .COMPLEX #90 tab 04/02/21 [Rx Last Taken Unknown] ciprofloxacin HCl 500 mg PO BID #28 tablet 07/15/21 [Rx Last Taken Unknown] hydrocodone-acetaminophen 1 tab PO Q4H PRN PRN 2 Days #10 tablet 07/15/21 [Rx Last Taken Unknown] Allergy/AdvReac Type Severity Reaction Status Date / Time No Known Allergies Allergy Verified 07/15/21 17:31 Family History Father Cancer Lung cancer Mother Old age Surgical History H/O aortic valve replacement History of back surgery (~1990) History of mechanical aortic valve replacement Social History Smoking Status: Never smoker alcohol intake: never substance use type: does not use diet: other caffeine: No what type of physical activity do you participate in: weight training frequency: 3-4 times per week duration: 45-60 minutes/day seatbelt use: always do you feel safe at home: Yes ROS ROS ED Constitutional Constitutional ED: Denies chills or fever(s) Eyes Eyes: Denies change in vision or diplopia ENT ENT ED: Denies rhinorrhea or sore throat Cardiovascular Cardiovascular: Denies chest pain or palpitations Respiratory/Chest Respiratory/Chest: Denies cough or dyspnea Gastrointestinal Gastrointestinal: Denies abdominal pain, diarrhea, nausea or vomiting Genitourinary Genitourinary ED: Reports as per HPI and scrotal pain; Denies dysuria or hematuria Musculoskeletal Musculoskeletal: Denies back pain or neck pain Integumentary Denies abscess or rash Neurologic Neurologic: Denies headache(s), paresthesias or weakness Psychiatric Psychiatric: Denies anxiety or suicidal thoughts EXAM Physical Exam Const Vital Signs: 07/15/21 17:31 07/15/21 22:03 Temperature 96.9 F L Temperature Source Temporal Pulse Rate 58 L 80 Respiratory Rate 14 16 Blood Pressure 137/91 H Blood Pressure Mean 106 Pulse Ox 96 99 Oxygen Delivery Method Room Air Room Air Positive well nourished and well developed General Appearance ED: well developed and NAD HEENT Reports moist mucous membranes normocephalic and atraumatic Eyes PERRL and EOMs intact bilaterally Neck full ROM and supple Resp normal respiratory effort and clear to auscultation bilaterally Cardio regular rate, regular rhythm and no murmurs GI non-tender and non-distended Auscultation: normoactive bowel sounds Palpation: soft Narrative: Prominent scrotum, seems swollen, patient states he is not sure but may be a little larger than usual, no signs of infection, blue dot sign, abscess. Intact cremasterics. Testicles nontender. Possible palpable hydrocele versus indirect hernia, however none of it is tender and there is no palpable mass in the inguinal ring or lingual no lymphadenopathy, penis is normal with no urethral meatus erythema or tenderness or discharge, penile exam is normal and nontender without lesion or rash. Back/Spine no CVA tenderness General Back: other FROM Extremity normal to inspection General Extremety ED: Negative for edema, pulses abnormal or tenderness General Extremity: Negative for edema or pulses abnormal Neuro oriented x3, CN's II-XII intact bilaterally and no sensory deficits noted Sensorium / Orientation: awake and alert Motor Exam: strength 5/5 throughout Skin no rashes or lesions noted and no wounds MDM MDM MDM Narrative Medical decision making narrative: Labs and urine unremarkable. No sign of any infection. Patient is very benign abdominal exam, his scrotum is very swollen and on asking him more about this, he thinks he has noticed swelling for a month or 2 however when the pain started today he thinks he has noticed a larger scrotum since this morning. He really is not tender in the scrotum however, the majority of the right hemiscrotum appears to be hydrocele clinically and the CT is consistent with this, so it was hard to find the testicle clinically. For these reasons, we will obtain an emergent ultrasound. Ultrasound obtained, it shows a large hydrocele but his testicles are normal and so was the blood flow. Given all this although I did not do a rectal exam in the patient I think he probably is having acute prostatitis. I did press on his perineum, it is nontender, there is no erythema there, or subcutaneous emphysema to suggest Manny's. We will start the patient on Cipro, give him a 2-week supply and have him follow-up with his doctor/urologist. Of note, I read the radiologist interpretation of his CT, and after discussing this with the patient he did not have prostate cancer in the past, nor did he have seeds implanted in it. These likely then are prostatic calcifications. I did discuss with the patient and his regarding Cipro reacting with the warfarin and making the INR likely to go up. Bactrim is the other first line treatment for prostatitis that will be likely to do the same thing. They will call to try to get his INR checked more frequently during the week so that they can adjust the dose accordingly. Patient is already on Flomax so he is advised to continue that. Lab Data Attestation: I reviewed the patient's lab results. Labs: Laboratory Results - last 24 hr 07/15/21 07/15/21 07/15/21 18:00 18:05 18:05 WBC 6.0 RBC 4.78 Hgb 15.5 Hct 44.0 MCV 92.1 MCH 32.4 H MCHC 35.2 RDW Std Deviation 40.5 RDW Coeff of Fide 12.1 Plt Count 180 MPV 11.8 Immature Gran % (Auto) 0.300 Neut % (Auto) 63.4 Lymph % (Auto) 23.9 [place] % (Auto) 10.4 H Eos % (Auto) 1.7 Baso % (Auto) 0.3 Absolute Neuts (auto) 3.8 Absolute Lymphs (auto) 1.43 Nucleated RBC % 0 PT Cancelled INR Cancelled Sodium Potassium Chloride Carbon Dioxide Anion Gap BUN Creatinine Estim Creat Clear Calc Est GFR (MDRD) Af Amer Est GFR (MDRD) Non-Af BUN/Creatinine Ratio Glucose Calcium Urine Color Yellow Urine Clarity Clear Urine pH 7.0 Ur Specific [place] 1.005 Urine Protein Negative Urine Glucose (UA) Normal Urine Ketones Negative Urine Occult Blood 10 H Urine Nitrite Negative Urine Bilirubin Negative Urine Urobilinogen Normal Ur Leukocyte Esterase Negative Urine RBC 0 SEEN Urine WBC 0 SEEN Ur Squamous Epith Cells 0 SEEN Urine Bacteria 0 SEEN Urine Mucus 0 SEEN 07/15/21 07/15/21 18:05 19:00 WBC RBC Hgb Hct MCV MCH MCHC RDW Std Deviation RDW Coeff of Fide Plt Count MPV Immature Gran % (Auto) Neut % (Auto) Lymph % (Auto) [place] % (Auto) Eos % (Auto) Baso % (Auto) Absolute Neuts (auto) Absolute Lymphs (auto) Nucleated RBC % PT 24.9 H INR 2.3 Sodium 139 Potassium 4.1 Chloride 108 H Carbon Dioxide 27.0 Anion Gap 4 L BUN 17 Creatinine 0.91 Estim Creat Clear Calc 64.38 Est GFR (MDRD) Af Amer 103 Est GFR (MDRD) Non-Af 85 BUN/Creatinine Ratio 18.6 Glucose 98 Calcium 8.6 Urine Color Urine Clarity Urine pH Ur Specific [place] Urine Protein Urine Glucose (UA) Urine Ketones Urine Occult Blood Urine Nitrite Urine Bilirubin Urine Urobilinogen Ur Leukocyte Esterase Urine RBC Urine WBC Ur Squamous Epith Cells Urine Bacteria Urine Mucus Radiography Diagnostic Testing: Clinical Impression(s) from Imaging Studies Abdomen/Pelvis CT 07/15/21 17:45 Testicular Ultrasound 07/15/21 19:18 IMPRESSION: Large right-sided hydrocele. Electronically Signed: Shashank Bradley MD at 21:45 EDT , Discharge Plan Triage Chief Complaint: Male Pain/Injury ED Provider: Karl Gunn Dx/Rx/DC Orders Clinical Impression: Acute prostatitis Instructions: ED Prostatitis Prescriptions: New ciprofloxacin HCl [ciprofloxacin HCl] 500 MG tablet 500 mg PO BID Qty: 28 RF: 0 hydrocodone-acetaminophen [hydrocodone-acetaminophen] 1 TABLET tablet 1 tab PO Q4H PRN PRN (Reason: Pain) 2 Days Qty: 10 RF: 0 No Action cyanocobalamin (vitamin B-12) 500 mcg tablet 1,000 mcg PO .COMPLEX RF: 0 nrfdeoiy-qzw-GL-lycopen-lutein [Centrum Silver] 0.4-300-250 mg-mcg-mcg tablet 1 tab PO QDAY RF: 0 calcium carbonate 600 mg calcium (1,500 mg) tablet 600 mg PO BID RF: 0 tamsulosin [Flomax] 0.4 mg capsule,extended release 24hr 0.4 mg PO BID RF: 0 alendronate 70 mg tablet 70 mg PO QWEEK 28 Days Qty: 4 RF: 0 rosuvastatin 5 mg tablet 5 mg PO QHS 90 Days Qty: 90 RF: 0 ergocalciferol (vitamin D2) 1,250 mcg (50,000 unit) capsule 50,000 unit PO Q2W RF: 0 donepezil 10 mg tablet 10 mg PO DAILY RF: 0 levetiracetam 750 MG tablet 1,500 mg PO QHS RF: 0 levetiracetam 1,000 MG tablet 1,000 mg PO DAILY RF: 0 phenytoin sodium extended 100 MG capsule 100 mg PO BID RF: 0 finasteride 5 MG tablet 5 mg PO QHS RF: 0 warfarin 5 mg tablet 5 mg PO .COMPLEX Qty: 90 RF: 3 warfarin 7.5 mg tablet 7.5 mg PO .COMPLEX Qty: 30 RF: 5 warfarin 1 mg tablet See Rx Instructions mg .ROUTE .COMPLEX Qty: 90 RF: 3 Primary Care Provider: Magdaleno Flores Referrals: Magdaleno Flores MD [Primary Care Provider] - Kevin Andrews MD [STAFF PHYSICIAN] - As soon as possible Activity Restrictions/Additional Instructions: Call to make arrangements to have your INR checked more often, at least twice per week, ideally with the first check being on Monday 07/17. Cipro will likely make your INR go up, but so will the other antibiotics indicated for this problem, so it is imperative to keep a close eye on your INR so you know when and by how much to cut your dose. Call the warfarin prescriber for guidance if you need it with regards to adjusting the dose. Disposition Disposition: Home, Self Care
[2021-07-15] MEDS: HYDROcodone Bitartrate/Apap 5/325 Tablet PO ×2 (17:58→22:29)
[2021-07-15 18:10] LABS: Bacteria 0 SEEN /hpf (None Seen); Mucous, Urine 0 SEEN /hpf (<or=2+); Red Blood Cells-Urine 0 SEEN /hpf (0-5); Squamous Epithelial Cells - UA 0 SEEN /hpf (0-5); White Blood Cells 0 SEEN /hpf (0-5)
[2021-07-15 18:12] LABS: Absolute Lymphocyte Count 1.43 X10^3/uL (0.83-4.51); Absolute Neutrophil Count 3.8 X10^3/uL (2.0-7.7); Basophil# 0.02 X10^3/uL; Basophil% 0.3 % (0-1); Eosinophils% 1.7 % (0-5); Hemoglobin 15.5 g/dL (13.0-16.5); Lymphocyte # 1.43 X10^3/ul (0.83-4.51); Lymphocyte % 23.9 % (19-41); Mean Corp Hgb Conc 35.2 g/dL (32-36); Mean Corpuscular Hgb 32.4 pg (27.0-32.0); Mean Corpuscular Volume 92.1 fL (80-94); Mean Platelet Vol. 11.8 fl (6.2-12.0); Monocyte# 0.62 X10^3/uL; Monocyte% 10.4 % (0-10); NRBC Flagged by Analyzer 0 % (0-5); Neutrophil % 63.4 % (47-70); Platelet Count 180 K/mm3 (150-450); RBC Distribution Width CV 12.1 % (11.6-14.6); RBC Distribution Width SD 40.5 fl (35.1-43.9); Red Blood Count 4.78 M/mm3 (4.6-6.2)
[2021-07-15 18:23] LABS: Color, Urine Yellow (Yellow); Glucose, Dipstick Normal (Normal); Ketone-Dipstick Negative (Negative); Leukocyte Esterase-Dipstick Negative /ul (Negative); Nitrite-Dipstick Negative (Negative); Occult Blood-Urine 10 /ul (Negative); Protein-Dipstick Negative (Negative); Specific Gravity, Urine 1.005 (1.002-1.030); Urine Bilirubin Dipstick Negative (Negative); Urine Clarity Clear (Clear); Urine Urobilinogen Normal (Normal)
[2021-07-15 18:29] LABS: Anion Gap 4 (5-15); BUN 17 mg/dL (7-18); BUN/Creat Ratio 18.6 RATIO (10-20); Calcium,Total 8.6 mg/dL (8.5-10.1); Chloride 108 mmol/L (98-107); Creatinine, Serum 0.91 mg/dL (0.70-1.30); EST Glomerular Filtration Rate 85 mL/min (>60); Est Glom Filt Rate - Afr Amer 103 mL/min (>60); Estimated Creatinine Clearance 64.38 ml/min; Glucose 98 mg/dL (74-106); Potassium 4.1 mmol/L (3.5-5.1); Sodium Level 139 mmol/L (136-145)
--- NOTE | 2021-07-15 19:18 | US_ITS ---
EXAM: US Scrotum CLINICAL INDICATION: 80 years old, Male; PAIN AND SWELLING RT SCROTUM TECHNIQUE: Realtime ultrasound of the testicles was performed with grayscale and Color Doppler analysis. This report was created using [employer] report [employer] technology. COMPARISON: None. FINDINGS: Right testicle: Unremarkable. Normal in size and echotexture. No focal lesion. Normal blood flow is present. Left testicle: There are a couple of small calcifications in the left testicle. Normal blood flow is present. Epididymides: 6 mm left epididymal cyst. Normal color Doppler flow pattern in the epididymis. Scrotum: Large right-sided hydrocele. No varicocele. US/Testicular with Arterial Flow IMPRESSION: Large right-sided hydrocele. Electronically Signed: Shashank Bradley MD at 21:45 EDT ,
[2021-07-15 19:25] LABS: International Normalized Ratio 2.3; Prothrombin Time (Protime)PT. 24.9 SECONDS (11.7-14.9)
[2021-07-15 22:03] VITALS: PULSE 80; RESP 16; O2SAT 99
[2021-07-15] MEDS: Ciprofloxacin 500 MG Tablet PO (22:29)
[2021-07-15 22:37] VITALS: PULSE 80; RESP 16; O2SAT 97
== END 2021-07-15 22:38 | disposition home or self-care (01) ==
PROVIDERS: Emergency Provider Emergency Medicine; PCP Family Medicine; Visit Provider Emergency Medicine
DX: N41.0 Acute prostatitis (principal); E78.5 Hyperlipidemia, unspecified; Z79.01 Long term (current) use of anticoagulants; Z86.73 Personal history of transient ischemic attack (TIA), and cerebral infarction without residual deficits; Z79.899 Other long term (current) drug therapy
CPT/HCPCS: 74176; 76870; 80048; 81001; 85025; 85610; 93976; 99284; J7030; A4216

== ENCOUNTER 2021-07-17 08:10 | Outpatient (CLI) | payer MEDICARE, BC, SELFPAY ==
[2021-07-18 09:21] LABS: Prothrombin Time Fingerstick 34.3 SEC (11.7-14.9)
== END 2021-07-17 23:59 | disposition home or self-care (01) ==
LOC: LAB 08:11
PROVIDERS: PCP Family Medicine; Visit Provider Internal Medicine Cardiovascular Disease
DX: Z79.01 Long term (current) use of anticoagulants (principal); Z98.890 Other specified postprocedural states; Z95.2 Presence of prosthetic heart valve
CPT/HCPCS: 36416; 85610

== ENCOUNTER 2021-07-18 15:29 | Emergency (ER) | payer MEDICARE, BC, SELFPAY ==
[2021-07-18 15:30] VITALS: BP 158/90; PULSE 83; RESP 16; TEMP 36.4; O2SAT 96; BMI 23.6
--- NOTE | 2021-07-18 16:00 | EX.ED.GUMALE ---
HPI History of Present Illness Chief Complaint: Male Pain/Injury Detail of Chief Complaint: Urinary retention Informant: patient and spouse/S.O. Pain Onset: Today Current Severity: Moderate Maximum Severity: Moderate Narrative Narrative: Patient seen here several nights ago, by myself. I diagnosed him with probable prostatitis given vague genitourinary pain, started him on Cipro. He presents today because he feels like he needs to urinate and is unable. He is on Coumadin, his INR was 3.0 yesterday, he has had no hematuria. Already saw urology but has no idea what they said or did or recommended. [facility] Medical History (Updated 07/18/21 @ 17:[address] 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 Muscle spasms of neck Osteoarthritis of right knee Pseudogout Seizure Seizure disorder Seizure disorder Stroke Thoracic aortic aneurysm Urinary retention Home Medications levetiracetam 1,500 mg PO QHS 02/15/13 [History Last Taken 11/28/17 19:00] finasteride 5 mg PO QHS 06/02/14 [History Last Taken 11/28/17 19:00] calcium carbonate 600 mg calcium (1,500 mg) tablet 600 mg PO BID tab 05/23/17 [History Last Taken Unknown] levetiracetam 1,000 mg tablet 1,000 mg PO DAILY 05/23/17 [History Last Taken Unknown] wkvhfiyc-rod-osujf acid 0.4 mg-lycopene 300 mcg-lutein 250 mcg tablet 1 tab PO QDAY 05/23/17 [History Last Taken Unknown] phenytoin sodium extended 100 mg capsule 100 mg PO BID cap 05/23/17 [History Last Taken 11/28/17 19:00] alendronate 70 mg tablet 70 mg PO QWEEK 28 Days #4 08/05/17 [History Last Taken 11/23/17] rosuvastatin 5 mg tablet 5 mg PO QHS 90 Days #90 08/05/17 [History Last Taken 11/28/17 19:00] tamsulosin 0.4 mg capsule 0.4 mg PO BID 08/05/17 [History Last Taken 11/28/17 19:00] cyanocobalamin (vitamin B-12) 500 mcg tablet 1,000 mcg PO .COMPLEX tab 12/10/17 [History Last Taken Unknown] donepezil 10 mg tablet 10 mg PO DAILY 02/16/20 [History Last Taken Unknown] ergocalciferol (vitamin D2) 1,250 mcg (50,000 unit) capsule 50,000 unit PO Q2W cap 02/16/20 [History Last Taken Unknown] warfarin 5 mg tablet 5 mg PO .COMPLEX #90 tab 03/29/20 [Rx Last Taken Unknown] warfarin 7.5 mg tablet 7.5 mg PO .COMPLEX #30 tab 03/09/21 [Rx Last Taken Unknown] warfarin 1 mg tablet See Rx Instructions .ROUTE .COMPLEX #90 tab 04/02/21 [Rx Last Taken Unknown] ciprofloxacin HCl 500 mg PO BID #28 tablet 07/15/21 [Rx Last Taken Unknown] hydrocodone-acetaminophen 1 tab PO Q4H PRN PRN 2 Days #10 tablet 07/15/21 [Rx Last Taken Unknown] Allergy/AdvReac Type Severity Reaction Status Date / Time No Known Allergies Allergy Verified 07/18/21 15:30 Family History Father Cancer Lung cancer Mother Old age Surgical History H/O aortic valve replacement History of back surgery (~1990) History of mechanical aortic valve replacement Social History Smoking Status: Never smoker alcohol intake: never substance use type: does not use diet: other caffeine: No what type of physical activity do you participate in: weight training frequency: 3-4 times per week duration: 45-60 minutes/day seatbelt use: always do you feel safe at home: Yes ROS ROS ED Constitutional Constitutional ED: Denies chills or fever(s) Eyes Eyes: Denies change in vision or diplopia ENT ENT ED: Denies rhinorrhea or sore throat Cardiovascular Cardiovascular: Denies chest pain or palpitations Respiratory/Chest Respiratory/Chest: Denies cough or dyspnea Gastrointestinal Gastrointestinal: Denies abdominal pain, diarrhea, nausea or vomiting Genitourinary Genitourinary ED: Reports other Details: Genitourinary pain without new swelling/redness/symptoms ; Denies dysuria or hematuria Musculoskeletal Musculoskeletal: Denies back pain or neck pain Integumentary Denies abscess or rash Neurologic Neurologic: Denies headache(s), paresthesias or weakness Psychiatric Psychiatric: Denies anxiety or suicidal thoughts EXAM Physical Exam Const Vital Signs: 07/18/21 15:30 07/18/21 17:41 Temperature 97.6 F L Temperature Source Temporal Pulse Rate 83 Respiratory Rate 16 16 Blood Pressure 158/90 H Blood Pressure Mean 112 Pulse Ox 96 Oxygen Delivery Method Room Air Positive well nourished and well developed General Appearance ED: well developed and NAD HEENT Reports moist mucous membranes normocephalic and atraumatic Eyes PERRL and EOMs intact bilaterally Neck full ROM and supple Resp normal respiratory effort and clear to auscultation bilaterally Cardio regular rate, regular rhythm and no murmurs GI non-distended GI Narrative: Mild discomfort with palpation suprapubic only, no other areas of tenderness. Auscultation: normoactive bowel sounds Palpation: soft Narrative: Scrotal swelling without tenderness throughout, no erythema Bladder / Kidney Exam: no CVA tenderness Back/Spine no CVA tenderness General Back: other FROM Extremity normal to inspection General Extremety ED: Negative for edema, pulses abnormal or tenderness General Extremity: Negative for edema or pulses abnormal Neuro oriented x3, CN's II-XII intact bilaterally and no sensory deficits noted Sensorium / Orientation: awake and alert Motor Exam: strength 5/5 throughout Skin no rashes or lesions noted and no wounds MDM MDM MDM Narrative Medical decision making narrative: Mena catheter placed after pretreatment with Urojet, total of 1200 cc nonbloody urine out, patient feels much better. Urinalysis done the other day I do not think we have to repeat that. Clearly this is a prostate issue after evaluating his prostate on CT and it is extremely large. I discussed with Dr. Andrews who saw the patient the other day and extended his antibiotic already after agreeing that the patient probably has prostatitis, he was already considering a TURP for this patient but they were holding off because of his mechanical heart valve, but now he recommends having the patient follow-up next week. Discharge Plan Triage Chief Complaint: Male Pain/Injury Other Complaint: Chest Pain ED Provider: Karl Gunn Dx/Rx/DC Orders Clinical Impression: Acute urinary retention, Acute prostatitis Instructions: ED Mena Catheter, Care, ED Urinary Retention, Male Prescriptions: No Action cyanocobalamin (vitamin B-12) 500 mcg tablet 1,000 mcg PO .COMPLEX RF: 0 lcsajtzb-zrb-PG-lycopen-lutein [Centrum Silver] 0.4-300-250 mg-mcg-mcg tablet 1 tab PO QDAY RF: 0 calcium carbonate 600 mg calcium (1,500 mg) tablet 600 mg PO BID RF: 0 tamsulosin [Flomax] 0.4 mg capsule,extended release 24hr 0.4 mg PO BID RF: 0 alendronate 70 mg tablet 70 mg PO QWEEK 28 Days Qty: 4 RF: 0 rosuvastatin 5 mg tablet 5 mg PO QHS 90 Days Qty: 90 RF: 0 ergocalciferol (vitamin D2) 1,250 mcg (50,000 unit) capsule 50,000 unit PO Q2W RF: 0 donepezil 10 mg tablet 10 mg PO DAILY RF: 0 levetiracetam 750 MG tablet 1,500 mg PO QHS RF: 0 levetiracetam 1,000 MG tablet 1,000 mg PO DAILY RF: 0 phenytoin sodium extended 100 MG capsule 100 mg PO BID RF: 0 finasteride 5 MG tablet 5 mg PO QHS RF: 0 ciprofloxacin HCl [ciprofloxacin HCl] 500 MG tablet 500 mg PO BID Qty: 28 RF: 0 hydrocodone-acetaminophen [hydrocodone-acetaminophen] 1 TABLET tablet 1 tab PO Q4H PRN PRN (Reason: Pain) 2 Days Qty: 10 RF: 0 warfarin 5 mg tablet 5 mg PO .COMPLEX Qty: 90 RF: 3 warfarin 7.5 mg tablet 7.5 mg PO .COMPLEX Qty: 30 RF: 5 warfarin 1 mg tablet See Rx Instructions mg .ROUTE .COMPLEX Qty: 90 RF: 3 Primary Care Provider: Magdaleno Flores Referrals: Magdaleno Flores MD [Primary Care Provider] - Kevin Andrews MD [STAFF PHYSICIAN] - (Next week, call for appointment) Disposition Disposition: Home, Self Care
[2021-07-18] MEDS: Lidocaine Jelly 2% 20 ML Syringe (URO-JET) 1 APPLIC TOPICAL (16:22)
[2021-07-18 17:41] VITALS: RESP 16
== END 2021-07-18 18:05 | disposition home or self-care (01) ==
PROVIDERS: Emergency Provider Emergency Medicine; PCP Family Medicine; Visit Provider Emergency Medicine
DX: R33.9 Retention of urine, unspecified (principal); N41.0 Acute prostatitis; Z79.01 Long term (current) use of anticoagulants; Z86.73 Personal history of transient ischemic attack (TIA), and cerebral infarction without residual deficits
CPT/HCPCS: 51702; 99283

== ENCOUNTER 2021-07-20 08:54 | Outpatient (CLI) | payer MEDICARE, BC, SELFPAY ==
[2021-07-20 10:06] LABS: INR Fingerstick 2.5; Prothrombin Time Fingerstick 29.5 SEC (11.7-14.9)
== END 2021-07-20 23:59 | disposition home or self-care (01) ==
LOC: LAB 08:55
PROVIDERS: PCP Family Medicine; Referring Provider Internal Medicine Cardiovascular Disease; Visit Provider Internal Medicine Cardiovascular Disease
DX: Z98.890 Other specified postprocedural states (principal); Z95.2 Presence of prosthetic heart valve; Z79.01 Long term (current) use of anticoagulants
CPT/HCPCS: 36416; 85610

== ENCOUNTER 2021-07-27 07:08 | Outpatient (CLI) | payer MEDICARE, BC, SELFPAY ==
[2021-07-27 11:10] LABS: International Normalized Ratio 2.5
== END 2021-07-27 23:59 | disposition home or self-care (01) ==
LOC: LAB 07:09
PROVIDERS: PCP Family Medicine; Referring Provider Internal Medicine Cardiovascular Disease; Visit Provider Internal Medicine Cardiovascular Disease
DX: Z79.01 Long term (current) use of anticoagulants (principal); Z95.2 Presence of prosthetic heart valve; Z98.890 Other specified postprocedural states
CPT/HCPCS: 85610

== ENCOUNTER 2021-08-09 09:19 | Outpatient (CLI) | payer MEDICARE, BC, SELFPAY ==
[2021-08-09 11:05] LABS: INR Fingerstick 1.7; Prothrombin Time Fingerstick 20.2 SEC (11.7-14.9)
== END 2021-08-09 23:59 | disposition home or self-care (01) ==
LOC: LAB 09:21
PROVIDERS: PCP Family Medicine; Referring Provider Internal Medicine Cardiovascular Disease; Visit Provider Internal Medicine Cardiovascular Disease
DX: Z98.890 Other specified postprocedural states (principal); Z95.2 Presence of prosthetic heart valve; Z79.01 Long term (current) use of anticoagulants
CPT/HCPCS: 36416; 85610

== ENCOUNTER 2021-08-20 09:34 | Outpatient (CLI) | payer MEDICARE, BC, SELFPAY ==
[2021-08-20 12:16] LABS: Prothrombin Time (Protime)PT. 54.2 SECONDS (11.7-14.9)
[2021-08-20 12:29] LABS: International Normalized Ratio 6.1
== END 2021-08-20 23:59 | disposition home or self-care (01) ==
LOC: LAB 09:37
PROVIDERS: PCP Family Medicine; Visit Provider Internal Medicine Cardiovascular Disease
DX: Z79.01 Long term (current) use of anticoagulants (principal); Z95.2 Presence of prosthetic heart valve; Z98.890 Other specified postprocedural states
CPT/HCPCS: 36415; 85610

== ENCOUNTER 2021-08-22 08:54 | Outpatient (CLI) | payer MEDICARE, BC, SELFPAY ==
[2021-08-22 11:08] LABS: Prothrombin Time (Protime)PT. 31.2 SECONDS (11.7-14.9)
== END 2021-08-22 23:59 | disposition home or self-care (01) ==
LOC: LAB 08:55
PROVIDERS: PCP Family Medicine; Visit Provider Internal Medicine Cardiovascular Disease
DX: Z95.2 Presence of prosthetic heart valve (principal); Z79.01 Long term (current) use of anticoagulants; Z98.890 Other specified postprocedural states
CPT/HCPCS: 36415; 85610

== ENCOUNTER 2021-08-29 13:53 | Inpatient (IN) | payer MEDICARE, BC, SELFPAY ==
--- NOTE | 2021-08-23 09:48 | EKG12_ITS ---
Test Reason : PREOP Blood Pressure : / mmHG Vent. Rate : 055 BPM Atrial Rate : 055 BPM P-R Int : 148 ms QRS Dur : 106 ms QT Int : 438 ms P-R-T Axes : 017 -22 -68 degrees QTc Int : 419 ms Sinus bradycardia Nonspecific ST-T Changes Abnormal ECG Confirmed by GILLIAN CHURCH, ROBIN ([id number]), electronic news gathering editor LITA MCFARLANE ([id number]) on 08/24/2021 5:49:38 AM Referred By: Kevin Andrews Confirmed By:EUGENIO FRENCH MD
[2021-08-29] VITALS (8 sets, daily range): BP systolic 97–168; BP diastolic 53–84; PULSE 49–69; RESP 16–18; TEMP 36.1–36.6; O2SAT 93–100; BMI 23.1
[2021-08-29] MEDS: Lactated Ringers 1,000 ML 15 ML IV ×2 (10:51→14:01)
[2021-08-29 10:57] LABS: Partial Thromboplast Time 32.5 Seconds (24.1-36.2)
[2021-08-29] MEDS: Cefazolin 2 GM in 0.9% Normal Saline 100 ML IV (12:07)
[2021-08-29] MEDS: Lubricating Jelly 60 GM Tube 30 GM (12:30)
--- NOTE | 2021-08-29 13:58 | PCM.HP.STD ---
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 and we have held the Coumadin for about 3 days for surgery PENDING SALE TO [facility] Medical History (Updated 08/23/21 @ 09:37 by Mitzy Sorenson) Alzheimer disease Aortic root dilatation Bladder disease Cardiology follow-up encounter Depression Diastolic dysfunction Dietary restriction Fall Herniated lumbar disc without myelopathy Herniated lumbar disc without myelopathy History of echocardiogram History of endocarditis History of rheumatic fever History of stroke Hx of transesophageal echocardiography (EUGENIE) for monitoring Hyperlipidemia Indwelling urethral catheter present Injury of back detention (current) use of anticoagulants Muscle spasms of neck Non-smoker Osteoarthritis of right knee Prostate disease Pseudogout Seizure disorder Seizure disorder Thoracic aortic aneurysm Urinary retention Uses wheelchair Walker as ambulation aid Wears glasses Wears partial dentures Home Medications levetiracetam 1,500 mg PO QHS 02/15/13 [History Last Taken 11/28/17 19:00] finasteride 5 mg PO QHS 06/02/14 [History Last Taken 11/28/17 19:00] calcium carbonate 600 mg calcium (1,500 mg) tablet 600 mg PO BID tab 05/23/17 [History Last Taken Unknown] levetiracetam 1,000 mg tablet 1,000 mg PO DAILY 05/23/17 [History Last Taken 08/29/21] eatcpstq-crw-lmtxf acid 0.4 mg-lycopene 300 mcg-lutein 250 mcg tablet 1 tab PO QDAY 05/23/17 [History Last Taken Unknown] phenytoin sodium extended 100 mg capsule 100 mg PO BID cap 05/23/17 [History Last Taken 08/29/21] alendronate 70 mg tablet 70 mg PO FERNANDEZ 28 Days #4 08/05/17 [History Last Taken 11/23/17] rosuvastatin 5 mg tablet 5 mg PO QHS 90 Days #90 08/05/17 [History Last Taken 11/28/17 19:00] tamsulosin 0.4 mg capsule 0.4 mg PO BID 08/05/17 [History Last Taken 11/28/17 19:00] cyanocobalamin (vitamin B-12) 500 mcg tablet 1,000 mcg PO .COMPLEX tab 12/10/17 [History Last Taken Unknown] donepezil 10 mg tablet 10 mg PO QHS 02/16/20 [History Last Taken Unknown] ergocalciferol (vitamin D2) 1,250 mcg (50,000 unit) capsule 50,000 unit PO Q2W cap 02/16/20 [History Last Taken Unknown] warfarin 2.5 mg PO WETHFR 08/23/21 [History Last Taken Unknown] warfarin 5 mg PO SUSA 08/23/21 [History Last Taken 08/26/21] Allergy/AdvReac Type Severity Reaction Status Date / Time No Known Allergies Allergy Verified 08/29/21 10:43 Family History Father Cancer Lung cancer Mother Old age Surgical History H/O aortic valve replacement History of back surgery (~1990) History of mechanical aortic valve replacement Social History Smoking Status: Never smoker alcohol intake: never substance use type: does not use diet: other caffeine: No what type of physical activity do you participate in: weight training frequency: 3-4 times per week duration: 45-60 minutes/day seatbelt use: always do you feel safe at home: Yes Vital Signs Vital Signs Vital Signs: 08/29/21 10:44 Temperature 97.2 F L Temperature Source Temporal Pulse Rate 50 L Respiratory Rate 16 Respiratory Pattern Normal Blood Pressure 160/78 H Blood Pressure Mean 105 Pulse Ox 100 Oxygen Delivery Method Room Air Weight Weight: 69 kg Body Mass Index (BMI) 23.1 Results Lab / Micro Data Labs: Laboratory Results - last 24 hr 08/29/21 10:37: APTT 32.5 Micro: Microbiology 08/29/21 10:36 Interface Orders SARS-CoV-2 Antigen (Rapid) - Final
--- NOTE | 2021-08-29 13:59 | PCM.DC ---
Discharge Instructions Diet Discharge Diet: No restrictions Activity Discharge Activity: Return to Normal Activity and May Not Drive (while taking narcotic pain medications.) Dressing / Incision Call your doctor if you observe: Fever of 101 or Higher Follow Up Care Please Follow Up With: Kevin Andrews MD When: Call [phone] for an appointment Test Results: Test results from this visit will be discussed in further detail at your follow-up appointment, if applicable. Discharge Plan Admission Primary Reason for Your Visit: laser of prostate, turp Attending Provider: Kevin Andrews Primary Care Provider: Magdaleno Flores Instructions Patient Instructions: TURP Home Recovery Discharge Orders/Prescriptions Prescriptions: Continued cyanocobalamin (vitamin B-12) 500 mcg tablet 1,000 mcg PO .COMPLEX RF: 0 zrtmkluy-nhp-LH-lycopen-lutein [Centrum Silver] 0.4-300-250 mg-mcg-mcg tablet 1 tab PO QDAY RF: 0 calcium carbonate 600 mg calcium (1,500 mg) tablet 600 mg PO BID RF: 0 tamsulosin [Flomax] 0.4 mg capsule,extended release 24hr 0.4 mg PO BID RF: 0 alendronate 70 mg tablet 70 mg PO FERNANDEZ 28 Days Qty: 4 RF: 0 rosuvastatin 5 mg tablet 5 mg PO QHS 90 Days Qty: 90 RF: 0 ergocalciferol (vitamin D2) 1,250 mcg (50,000 unit) capsule 50,000 unit PO Q2W RF: 0 donepezil 10 mg tablet 10 mg PO QHS RF: 0 levetiracetam 750 MG tablet 1,500 mg PO QHS RF: 0 levetiracetam 1,000 MG tablet 1,000 mg PO DAILY RF: 0 phenytoin sodium extended 100 MG capsule 100 mg PO BID RF: 0 finasteride 5 MG tablet 5 mg PO QHS RF: 0 warfarin 5 mg tablet 5 mg PO SUSA RF: 0 warfarin 1 mg tablet 2.5 mg PO WETHFR RF: 0 Referrals / Follow Up: Magdaleno Flores MD [Primary Care Provider] - Kevin Andrews MD [STAFF PHYSICIAN] - Disposition Disposition (needs filled in before D/C Order can be placed): Home, Self Care
--- NOTE | 2021-08-29 13:59 | PCM.OPRPT ---
Report of Operation Date of Procedure: 08/29/21 Pre-Operative Diagnosis: BPH with obstruction urinary retention, atonic bladder Post-Operative Diagnosis: Same Surgery/Procedure Performed:: Transurethral section of prostate Description of Surgical Findings:: Patient was taken back to the operating room for smooth induction of general anesthesia he was placed in dorsolithotomy position. The penis and testicles prepped and draped in usual sterile fashion this is an elderly gentleman with significant medical problems he has mechanical heart valve we have spoken his cardiology they agreed to hold his Coumadin for a few days for this procedure. He now comes in and working to proceed with surgery in the prostate. The patient's penis and testicles were prepped and draped in usual sterile fashion of note he had a significant diaper rash around the groin prescription will be given for this. I then went into the bladder with a continuous-flow laser scope we started lasering the prostate as we started working on the prostate encountered pretty significant bleeding almost immediately made the lasering quite difficult so Lasering for some time but then had to switch over to a Olympus resectoscope and then when I switched over to the Olympus resectoscope we used the button to proceed with a TURP and with this I used the button to continue with the resection of the prostate with the button is able to control the bleeding I resected open a prostate nice wide open all the way from the sphincter to the verumontanum, wide open from sphincter to bladder, tried a crede manuveur and a great flow, I used extensive amount of coagulation to cauterize all bleeders the urine was crystal clear with no bleeding whatsoever at the end but all catheter in the bladder with continuous irrigation the urine was clear we did a flow test before the cystoscope was removed and he had a nice wide open flow verumontanum was spared sphincter was intact he is at the use a catheter guide to get the catheter into the bladder and the patient's anesthetic was reversed and he was taken back to the PACU in good condition with continuous bladder irrigation. Surgeon: león Type of Anesthesia: General Drains: 22fr [address] way Admit VTE Documentation VTE Present on Admission: No VTE Mechan Device Prophylaxis: SCD's VTE Pharm Prophylaxis ordered?: No
[2021-08-29] MEDS: Calcium (Elemental) 500 MG Tablet PO (16:59)
[2021-08-29] MEDS: Tamsulosin HCl 0.4 MG Capsule PO (16:59)
[2021-08-29] MEDS: Phenytoin Na 100 MG Capsule PO (16:59)
--- NOTE | 2021-08-29 17:05 | NURSING ---
unsure of home medications called daughter reuben, no answer. left message to call back to verify home medications.
[2021-08-29] MEDS: Finasteride 5 MG Tablet PO (21:57)
[2021-08-29] MEDS: Docusate Sodium 100 MG Capsule PO (21:58)
[2021-08-29] MEDS: Cephalexin 500 MG Capsule PO (21:58)
[2021-08-29] MEDS: levETIRAcetam 750 MG Tablet 1500 MG PO (21:58)
[2021-08-29] MEDS: Donepezil HCl 10 MG Tablet PO (21:58)
[2021-08-29] MEDS: Atorvastatin Calcium 10 MG Tablet PO (21:58)
[2021-08-30] VITALS: BP 111/50; PULSE 73; RESP 18; TEMP 37.2; O2SAT 93
[2021-08-30] MEDS: 0.9% Normal Saline 1,000 ML 75 ML IV ×2 (02:16→17:02)
[2021-08-30 05:00] VITALS: BP 98/68; PULSE 59; RESP 18; TEMP 36.4; O2SAT 94
[2021-08-30] MEDS: Cephalexin 500 MG Capsule PO ×3 (05:46→22:17)
--- NOTE | 2021-08-30 07:26 | PCM.PN.GU ---
Subjective Subjective s/p TURP has mechanical heart valve restart coumadin today, check INR in am tomorrow no SOB, no chest pain, no symptoms probably home with heaton tomorrow back on coumadin Objective Data Objective Data Vital Signs: Vital Signs Temp Pulse Resp BP Pulse Ox 97.6 F L 59 L 18 98/68 94 08/30/21 05:00 08/30/21 05:00 08/30/21 05:00 08/30/21 05:00 08/30/21 05:00 Oxygen Delivery Method Room Air Weight: 69 kg Body Mass Index (BMI) 23.1 Intake & Output: Intake and Output for Last 24 Hours 08/28/21 08/29/21 08/30/21 23:59 23:59 23:59 Intake Total 1310 / 1310 416.75 / 416.75 Output Total 3350 / 3350 1850 / 1850 Balance -2040 / -2040 -1433.25 / -1433.25 Lab / Micro Data Labs: Laboratory Results - last 24 hr 08/29/21 10:37: APTT 32.5 Micro: Microbiology 08/29/21 10:36 Interface Orders SARS-CoV-2 Antigen (Rapid) - Final
[2021-08-30 08:37] VITALS: BP 95/66; PULSE 64; RESP 16; TEMP 36.6; O2SAT 96
[2021-08-30] MEDS: Ergocalciferol 1.25 MG (50, 000 UNIT) Capsule PO (08:57)
[2021-08-30] MEDS: Multivitamins,Ther W-Minerals Tablet 1 TABLET PO (08:58)
[2021-08-30] MEDS: Pantoprazole Sodium 40 MG Tablet PO (08:58)
[2021-08-30] MEDS: levETIRAcetam 1,000 MG Tablet 1000 MG PO (08:58)
[2021-08-30] MEDS: Calcium (Elemental) 500 MG Tablet PO ×2 (08:58→17:02)
[2021-08-30] MEDS: Tamsulosin HCl 0.4 MG Capsule PO ×2 (08:58→17:02)
[2021-08-30] MEDS: Docusate Sodium 100 MG Capsule PO ×2 (08:58→22:17)
[2021-08-30] MEDS: Phenytoin Na 100 MG Capsule PO ×2 (08:58→17:02)
--- NOTE | 2021-08-30 10:20 | CASEMGMT ---
RN HERMILA DEPARTMENT CHAIRPERSON CM to room to meet with patient for initial transition planning/care coordination assessment. [employer] introduced self and role at [facility].? Pt voices understanding and consents to assessment at this time.? Pt sitting up in chair in no distress at this time.? @ chairside. Pt w/hx of Alzheimer's dementia. Pt is A/O at this time and able to answer most questions, but did verify when needed and provided additional info. Care providers, pharmacy, and demographics verified/updated at this time. PCP: Dr Flores Specialists: Dr Zimmer--cardiology, Dr Andrews-urology. Pt was going [facility] in [place], but neurologist has retired. Dtr, Yesenia, in the process of getting neurologist in [place] for pt. Preferred Pharmacy: [facility] Insurance: [employer] Prescription Benefit:? Yes Living Will/HPOA:? Has both LW and HPOA, who is his , Noni, and daughter. LNOK: , Noni. Dtr, Yesenia Mendoza. Son-in-law, Dr Mat Calabrese. Living Arrangements: Lives w/ @ [facility]. Home is handicap accessible, one level, no steps to enter. Pt is independent w/ADL's. does grocery shopping and home mgmt tasks. They hire a cleaning lady weekly. Both and dtr, Yesenia, help w/managing pt's medications and appts. Transportation: Pt does not drive. provides transportation DME: ?States has the following DME:? shower chair, RTS, grab bars, walker, W/C, electric scooter, medical alert button and pt deny needs for further DME at this time.? HHC/SNF: No hx of SNF. Active w/[facility]. and pt would like [facility] upon d/c. Call placed to Lilliam @ [facility]. She is aware of pt's admission and confirms pt is active w/them for SN and OT. [facility] order placed. Pt and wish for pt to return home and state they have no concerns with pt going home at time of discharge. CM to follow any further discharge planning/needs.? Pt and voice no further concerns/needs at this time.? Advised them to ask for CM if any further questions/concerns/needs arise.? Voices understanding. PLAN: ?Home w/[facility]: SN and OT. Sabine SHIRLEYN RN CM
[2021-08-30 14:17] VITALS: BP 101/66; PULSE 70; RESP 16; TEMP 37.1; O2SAT 94
[2021-08-30 17:37] LABS: International Normalized Ratio 1.3; Prothrombin Time (Protime)PT. 16.2 SECONDS (11.7-14.9)
[2021-08-30 22:11] VITALS: BP 125/70; PULSE 63; RESP 20; TEMP 37.4; O2SAT 95
[2021-08-30] MEDS: Donepezil HCl 10 MG Tablet PO (22:16)
[2021-08-30] MEDS: levETIRAcetam 750 MG Tablet 1500 MG PO (22:17)
[2021-08-30] MEDS: Atorvastatin Calcium 10 MG Tablet PO (22:18)
[2021-08-30] MEDS: Finasteride 5 MG Tablet PO (22:18)
[2021-08-30] MEDS: Nystatin/Triamcin Cream Tube 1 APPLIC TOPICAL (22:22)
[2021-08-31] MEDS: 0.9% Normal Saline 1,000 ML 75 ML IV (04:47)
[2021-08-31] MEDS: Nystatin/Triamcin Cream Tube 1 APPLIC TOPICAL ×2 (04:49→14:21)
[2021-08-31 04:55] VITALS: BP 124/68; PULSE 64; RESP 20; TEMP 37.5; O2SAT 95
[2021-08-31] MEDS: Cephalexin 500 MG Capsule PO ×2 (05:02→14:21)
[2021-08-31 06:44] LABS: International Normalized Ratio 1.2; Prothrombin Time (Protime)PT. 15.2 SECONDS (11.7-14.9)
[2021-08-31] MEDS: Tamsulosin HCl 0.4 MG Capsule PO (07:29)
[2021-08-31] MEDS: Calcium (Elemental) 500 MG Tablet PO (07:29)
[2021-08-31] MEDS: Multivitamins,Ther W-Minerals Tablet 1 TABLET PO (07:29)
[2021-08-31] MEDS: Phenytoin Na 100 MG Capsule PO (07:30)
[2021-08-31 08:01] VITALS: BP 130/72; PULSE 59; RESP 18; TEMP 36.8; O2SAT 98
[2021-08-31] MEDS: Pantoprazole Sodium 40 MG Tablet PO (10:14)
[2021-08-31] MEDS: Docusate Sodium 100 MG Capsule PO (10:14)
[2021-08-31] MEDS: levETIRAcetam 1,000 MG Tablet 1000 MG PO (10:16)
--- NOTE | 2021-08-31 12:44 | PCM.PN.GU ---
Subjective Subjective doing well urine clear back on all meds home today with heaton follow up next week for TOV Objective Data Objective Data Vital Signs: Vital Signs Temp Pulse Resp BP Pulse Ox 98.2 F 59 L 18 130/72 H 98 08/31/21 08:01 08/31/21 08:01 08/31/21 08:01 08/31/21 08:01 08/31/21 08:01 Oxygen Delivery Method Room Air Weight: 69 kg Body Mass Index (BMI) 23.1 Intake & Output: Intake and Output for Last 24 Hours 08/29/21 08/30/21 08/31/21 23:59 23:59 23:59 Intake Total 1310 / 1310 2266.75 / 2266.75 1281.25 / 1281.25 Output Total 3350 / 3350 2200 / 3650 2450 / 2450 Balance -2040 / -2040 66.75 / -1383.25 -1168.75 / -1168.75 Lab / Micro Data Labs: Laboratory Results - last 24 hr 08/30/21 17:20: PT 16.2 H, INR 1.3 08/31/21 05:58: PT 15.2 H, INR 1.2 Micro: Microbiology 08/29/21 10:36 Interface Orders SARS-CoV-2 Antigen (Rapid) - Final
--- NOTE | 2021-08-31 13:01 | CASEMGMT ---
Addendum entered by Molly Vick 08/31/21 13:04: Pt services for [facility] will be resumed tomorrow. Original Note: Notified [facility] that pt is being dc'd today.
[2021-08-31 15:37] VITALS: BP 138/70; PULSE 62; RESP 16; TEMP 36.8; O2SAT 98
== END 2021-08-31 15:42 | disposition home health service (06) | DRG 713 ==
LOC: SDC 14:10 → MS3 14:10
PROVIDERS: Anesthesiology; Admitting Provider Urology; PCP Family Medicine; Referring Provider Urology; Visit Provider Urology
PROC: 0V508ZZ Destruction of Prostate, Via Natural or Artificial Opening Endoscopic (ICD-10-PCS; CPT 52648; principal; 2021-08-29 12:05)
DX: N40.1 Benign prostatic hyperplasia with lower urinary tract symptoms (principal); N13.8 Other obstructive and reflux uropathy; F02.80 Dementia in other diseases classified elsewhere, unspecified severity, without behavioral disturbance, psychotic disturbance, mood disturbance, and anxiety; G30.9 Alzheimer's disease, unspecified; E78.5 Hyperlipidemia, unspecified; L22 Diaper dermatitis; N31.2 Flaccid neuropathic bladder, not elsewhere classified; Z20.822 Contact with and (suspected) exposure to COVID-19; Z79.01 Long term (current) use of anticoagulants; Z79.899 Other long term (current) drug therapy; Z86.73 Personal history of transient ischemic attack (TIA), and cerebral infarction without residual deficits; Z95.2 Presence of prosthetic heart valve
CPT/HCPCS: 36415; 85610; 85730; 87426; 93005; J7030; J7120; J2405

== ENCOUNTER 2021-09-03 13:27 | Emergency (ER) | payer MEDICARE, BC, SELFPAY ==
[2021-09-03 13:28] VITALS: BP 115/69; PULSE 67; RESP 18; TEMP 36.1; O2SAT 98; BMI 23.6
--- NOTE | 2021-09-03 14:16 | ED.VIS.LOWEX ---
HPI History of Present Illness Chief Complaint: Lower Extremity Injury Informant: patient and family Limited: dementia (Prior notes with short-term memory) Occured/Mechanism Comment: Pain and swelling left ankle unknown if injured Onset/Context/Timing Onset: Today Context: Sudden Onset Timing: Continuous Quality of Pain: Dull and Aching Location: Left ankle Current Severity: Mild Maximum Severity: Severe Worsened by: Passive movement Relieved by: Nothing Associated Symptoms Associated Symptoms: Positive for Loss of Funtion Narrative Narrative: Patient is an elderly male who recently had prostate surgery who is on Coumadin. He has a mechanical aortic valve. Patient has a remote history of gout per son-in-law. He is not presently on a thigh diuretic. He denies fever or chills. He denies paresthesia, anesthesia or motor weakness. He denies leg pain, swelling or discoloration. There is no history of VTE. Tetanus Immunization: 5-10 years Prior similar symptoms: No Recent Illness/Hospitalization: Yes PFSH [facility] Medical History Alzheimer disease Aortic root dilatation Bladder disease Cardiology follow-up encounter Depression Diastolic dysfunction Dietary restriction Fall Herniated lumbar disc without myelopathy Herniated lumbar disc without myelopathy History of echocardiogram History of endocarditis History of rheumatic fever History of stroke Hx of transesophageal echocardiography (EUGENIE) for monitoring Hyperlipidemia Indwelling urethral catheter present Injury of back MCFP (current) use of anticoagulants Muscle spasms of neck Non-smoker Osteoarthritis of right knee Prostate disease Pseudogout Seizure disorder Seizure disorder Thoracic aortic aneurysm Urinary retention Uses wheelchair Walker as ambulation aid Wears glasses Wears partial dentures Home Medications levetiracetam 1,500 mg PO QHS 02/15/13 [History Last Taken 11/28/17 19:00] finasteride 5 mg PO QHS 06/02/14 [History Last Taken 11/28/17 19:00] calcium carbonate 600 mg calcium (1,500 mg) tablet 600 mg PO BID tab 05/23/17 [History Last Taken Unknown] levetiracetam 1,000 mg tablet 1,000 mg PO DAILY 05/23/17 [History Last Taken 08/29/21] gafjpakd-eig-ytdvm acid 0.4 mg-lycopene 300 mcg-lutein 250 mcg tablet 1 tab PO QDAY 05/23/17 [History Last Taken Unknown] phenytoin sodium extended 100 mg capsule 100 mg PO BID cap 05/23/17 [History Last Taken 08/29/21] alendronate 70 mg tablet 70 mg PO FERNANDEZ 28 Days #4 08/05/17 [History Last Taken 11/23/17] rosuvastatin 5 mg tablet 5 mg PO QHS 90 Days #90 08/05/17 [History Last Taken 11/28/17 19:00] tamsulosin 0.4 mg capsule 0.4 mg PO BID 08/05/17 [History Last Taken 11/28/17 19:00] cyanocobalamin (vitamin B-12) 500 mcg tablet 1,000 mcg PO .COMPLEX tab 12/10/17 [History Last Taken Unknown] donepezil 10 mg tablet 10 mg PO QHS 02/16/20 [History Last Taken Unknown] ergocalciferol (vitamin D2) 1,250 mcg (50,000 unit) capsule 50,000 unit PO Q2W cap 02/16/20 [History Last Taken Unknown] warfarin 2.5 mg PO WETHFR 08/23/21 [History Last Taken Unknown] warfarin 5 mg PO SUSA 08/23/21 [History Last Taken 08/26/21] cephalexin 500 mg PO BID #14 cap 08/31/21 [Rx Last Taken Unknown] prednisone 60 mg PO DAILY #15 tablet 09/03/21 [Rx Last Taken Unknown] Allergy/AdvReac Type Severity Reaction Status Date / Time No Known Allergies Allergy Verified 09/03/21 13:30 Family History Father Cancer Lung cancer Mother Old age Surgical History H/O aortic valve replacement History of back surgery (~1990) History of mechanical aortic valve replacement Social History (Updated 09/03/21 @ 14:[address] Anam Britton MD) household members: spouse Smoking Status: Never smoker alcohol intake: never substance use type: does not use diet: other caffeine: No what type of physical activity do you participate in: weight training frequency: 3-4 times per week duration: 45-60 minutes/day seatbelt use: always do you feel safe at home: Yes ROS ROS ED Constitutional Constitutional ED: Denies chills, fever(s), subjective, sweats or weight loss Musculoskeletal Musculoskeletal: Denies arthralgias, back pain, myalgias or neck pain Integumentary Denies abscess, Abrasions or rash Neurologic Neurologic: Denies headache(s), paresthesias or weakness Hematologic/Lymphatic Hematologic/Lymphatic: Denies easy bleeding, easy bruising or lymphadenopathy EXAM Physical Exam Const Vital Signs: 09/03/21 13:28 Temperature 97 F L Temperature Source Temporal Pulse Rate 67 Respiratory Rate 18 Blood Pressure 115/69 Blood Pressure Mean 84 Pulse Ox 98 Oxygen Delivery Method Room Air Positive well nourished and well developed General Appearance ED: well developed and NAD HEENT normocephalic and atraumatic Extremity Extremity Narrative: There is swelling of the left ankle compared to the right. There is slight erythema and there is warmth. There is an effusion of the ankle. Passive dorsi and plantar flexion causes exquisite pain. DP pulses palpable. Patient has significant deformity of the great toe, hallux deformity Neuro oriented x3 and CN's II-XII intact bilaterally Sensorium / Orientation: alert Psych mental status grossly normal Skin no wounds Lesions: no lesions Rashes: no rashes MDM MDM MDM Narrative Medical decision making narrative: Suspect this is gout. Will obtain PT/INR since this may represent a hemarthrosis if PT/INR is markedly elevated. Also need to rule out injury since patient's short-term memory is impaired. Lab Data Attestation: I reviewed the patient's lab results. Lab results narrative: With an INR of 1.3 will treat for gout. Labs: Laboratory Results - last 24 hr 09/03/21 14:35 PT 15.4 H INR 1.3 Radiography X-Ray: Read by ED Physician (Three-view x-ray of the ankle reveals minimal chronic changes. There is evidence of atherosclerotic disease. There is no evidence of fracture.) Diagnostic Testing: Clinical Impression(s) from Imaging Studies Ankle X-Ray 09/03/21 14:20 IMPRESSION: Soft tissue swelling. Osteopenia without demonstrated fracture. Electronically Signed: Omkar King MD at 14:45 EDT Reading Location ID and State: [facility] / [place] Tel , Service support , Discharge Plan Triage Chief Complaint: Lower Extremity Injury ED Provider: Anam Britton Dx/Rx/DC Orders Clinical Impression: Acute gout, [employer] (current) use of anticoagulants Instructions: ED Gout, ED Gout Diet Prescriptions: New prednisone 20 MG tablet 60 mg PO DAILY Qty: 15 RF: 0 No Action cyanocobalamin (vitamin B-12) 500 mcg tablet 1,000 mcg PO .COMPLEX RF: 0 vecrfzxi-upk-MP-lycopen-lutein [Centrum Silver] 0.4-300-250 mg-mcg-mcg tablet 1 tab PO QDAY RF: 0 calcium carbonate 600 mg calcium (1,500 mg) tablet 600 mg PO BID RF: 0 tamsulosin [Flomax] 0.4 mg capsule,extended release 24hr 0.4 mg PO BID RF: 0 alendronate 70 mg tablet 70 mg PO FERNANDEZ 28 Days Qty: 4 RF: 0 rosuvastatin 5 mg tablet 5 mg PO QHS 90 Days Qty: 90 RF: 0 ergocalciferol (vitamin D2) 1,250 mcg (50,000 unit) capsule 50,000 unit PO Q2W RF: 0 donepezil 10 mg tablet 10 mg PO QHS RF: 0 levetiracetam 750 MG tablet 1,500 mg PO QHS RF: 0 levetiracetam 1,000 MG tablet 1,000 mg PO DAILY RF: 0 phenytoin sodium extended 100 MG capsule 100 mg PO BID RF: 0 finasteride 5 MG tablet 5 mg PO QHS RF: 0 warfarin 5 mg tablet 5 mg PO SUSA RF: 0 warfarin 1 mg tablet 2.5 mg PO WETHFR RF: 0 cephalexin 500 mg capsule 500 mg PO BID Qty: 14 RF: 0 Primary Care Provider: Magdaleno Flores Referrals: Magdaleno Flores MD [Primary Care Provider] - Disposition Disposition: Home, Self Care
--- NOTE | 2021-09-03 14:20 | RAD_ITS ---
STUDY: X-RAY - LEFT ANKLE REASON FOR EXAM: Left foot pain and swelling, difficulty walking. TECHNIQUE: 3 view(s) of the ankle. COMPARISON: None. FINDINGS: There is osteopenia. Normal visualized distal tibia and fibula. Normal medial and lateral malleoli. Normal tibiotalar articulation and ankle mortise. Normal visualized talus and calcaneus. The visualized subtalar, talonavicular, calcaneocuboid and tarsal articulations are normal. There is soft tissue swelling. There is vascular calcification. RAD/Ankle min 3 Views IMPRESSION: Soft tissue swelling. Osteopenia without demonstrated fracture. Electronically Signed: Omkar King MD at 14:45 EDT ,
[2021-09-03 15:00] LABS: International Normalized Ratio 1.3; Prothrombin Time (Protime)PT. 15.4 SECONDS (11.7-14.9)
[2021-09-03] MEDS: predniSONE 20 MG Tablet 60 MG PO (15:33)
== END 2021-09-03 15:49 | disposition home or self-care (01) ==
PROVIDERS: Emergency Provider Emergency Medicine; PCP Family Medicine; Visit Provider Emergency Medicine
DX: M10.9 Gout, unspecified (principal); Z79.01 Long term (current) use of anticoagulants; Z95.2 Presence of prosthetic heart valve
CPT/HCPCS: 73610; 85610; 99283

== ENCOUNTER → 2021-09-07 | Outpatient (CLI) | payer MEDICARE, BC, SELFPAY ==
[2021-09-07 11:00] LABS: INR Fingerstick 2.3; Prothrombin Time Fingerstick 26.7 SEC (11.7-14.9)
== END | disposition home or self-care (01) ==
LOC: LAB 09:39
PROVIDERS: PCP Family Medicine; Visit Provider Internal Medicine Cardiovascular Disease
DX: Z98.890 Other specified postprocedural states (principal); Z95.2 Presence of prosthetic heart valve; Z79.01 Long term (current) use of anticoagulants
CPT/HCPCS: 36416; 85610

== ENCOUNTER → 2021-09-13 | Outpatient (CLI) | payer MEDICARE, BC, SELFPAY ==
[2021-09-13 11:31] LABS: INR Fingerstick 1.7; Prothrombin Time Fingerstick 20.8 SEC (11.7-14.9)
== END | disposition home or self-care (01) ==
PROVIDERS: PCP Family Medicine; Referring Provider Internal Medicine Cardiovascular Disease; Visit Provider Internal Medicine Cardiovascular Disease
DX: Z98.890 Other specified postprocedural states (principal); Z95.2 Presence of prosthetic heart valve; Z79.01 Long term (current) use of anticoagulants
CPT/HCPCS: 36416; 85610

== ENCOUNTER → 2021-09-20 | Outpatient (CLI) | payer MEDICARE, BC, SELFPAY ==
[2021-09-20 10:20] LABS: INR Fingerstick 2.9
== END | disposition home or self-care (01) ==
LOC: LAB 08:08
PROVIDERS: PCP Family Medicine; Referring Provider Internal Medicine Cardiovascular Disease; Visit Provider Internal Medicine Cardiovascular Disease
DX: Z98.890 Other specified postprocedural states (principal); Z95.2 Presence of prosthetic heart valve; Z79.01 Long term (current) use of anticoagulants
CPT/HCPCS: 36416; 85610

== ENCOUNTER → 2021-09-27 | Outpatient (CLI) | payer MEDICARE, BC, SELFPAY ==
[2021-09-27 10:36] LABS: INR Fingerstick 5.2; Prothrombin Time Fingerstick 56.3 SEC (11.7-14.9)
[2021-09-27 10:41] LABS: International Normalized Ratio 5.8
== END | disposition home or self-care (01) ==
LOC: LAB 08:37
PROVIDERS: PCP Family Medicine; Visit Provider Internal Medicine Cardiovascular Disease
DX: Z98.890 Other specified postprocedural states (principal); Z95.2 Presence of prosthetic heart valve; Z79.01 Long term (current) use of anticoagulants
CPT/HCPCS: 36416; 85610

== ENCOUNTER → 2021-10-02 | Outpatient (CLI) | payer MEDICARE, BC, SELFPAY ==
[2021-10-03 10:40] LABS: INR Fingerstick 1.8; Prothrombin Time Fingerstick 21.1 SEC (11.7-14.9)
== END | disposition home or self-care (01) ==
LOC: LAB 09:59
PROVIDERS: PCP Family Medicine; Referring Provider Internal Medicine Cardiovascular Disease; Visit Provider Internal Medicine Cardiovascular Disease
DX: Z98.890 Other specified postprocedural states (principal); Z95.2 Presence of prosthetic heart valve; Z79.01 Long term (current) use of anticoagulants
CPT/HCPCS: 36416; 85610

== ENCOUNTER → 2021-10-10 | Outpatient (CLI) | payer MEDICARE, BC, SELFPAY ==
[2021-10-10 11:53] LABS: International Normalized Ratio 2.7; Prothrombin Time (Protime)PT. 28.5 SECONDS (11.7-14.9)
== END | disposition home or self-care (01) ==
LOC: LAB 10:13
PROVIDERS: PCP Family Medicine; Visit Provider Internal Medicine Cardiovascular Disease
DX: Z98.890 Other specified postprocedural states (principal); Z95.2 Presence of prosthetic heart valve; Z79.01 Long term (current) use of anticoagulants
CPT/HCPCS: 36415; 85610

== ENCOUNTER 2021-10-16 17:25 | Emergency (ER) | payer MEDICARE, BC, SELFPAY ==
[2021-10-16 17:27] VITALS: BP 126/76; PULSE 98; RESP 16; TEMP 36.2; O2SAT 98; BMI 23.6
[2021-10-16 18:05] LABS: Mucous, Urine 0 SEEN /hpf (<or=2+)
[2021-10-16 18:10] LABS: Absolute Lymphocyte Count 1.12 X10^3/uL (0.83-4.51); Absolute Neutrophil Count 9.8 X10^3/uL (2.0-7.7); Basophil# 0.02 X10^3/uL; Basophil% 0.2 % (0-1); Eosinophil# 0.12 X10^3/uL; Hematocrit 42.1 % (40-54); Hemoglobin 13.9 g/dL (13.0-16.5); Lymphocyte # 1.12 X10^3/ul (0.83-4.51); Lymphocyte % 9.2 % (19-41); Mean Corpuscular Hgb 31.1 pg (27.0-32.0); Mean Corpuscular Volume 94.2 fL (80-94); Mean Platelet Vol. 11.5 fl (6.2-12.0); Monocyte# 1.12 X10^3/uL; Monocyte% 9.2 % (0-10); NRBC Flagged by Analyzer 0 % (0-5); Neutrophil # 9.76 X10^3/uL (2.7-7.7); Neutrophil % 79.9 % (47-70); Platelet Count 165 K/mm3 (150-450); RBC Distribution Width CV 12.7 % (11.6-14.6); RBC Distribution Width SD 43.9 fl (35.1-43.9); Red Blood Count 4.47 M/mm3 (4.6-6.2); White Blood Count 12.2 K/mm3 (4.4-11.0)
[2021-10-16 18:13] LABS: Color, Urine Brown (Yellow); Glucose, Dipstick Normal (Normal); Ketone-Dipstick Negative (Negative); Leukocyte Esterase-Dipstick 500 /ul (Negative); Nitrite-Dipstick Positive (Negative); Occult Blood-Urine 250 /ul (Negative); Protein-Dipstick 100 mg/dl (Negative); Urine Bilirubin Dipstick Negative (Negative); Urine Clarity Cloudy (Clear); Urine Urobilinogen Normal (Normal)
[2021-10-16 18:26] LABS: Bacteria 4+ /hpf (None Seen); Red Blood Cells-Urine > 100 SEEN /hpf (0-5); Squamous Epithelial Cells - UA 5-10 SEEN /hpf (0-5); White Blood Cells >100 SEEN /hpf (0-5)
--- NOTE | 2021-10-16 18:32 | EX.ED.GUMALE ---
HPI History of Present Illness Chief Complaint: Male Pain/Injury Narrative Narrative: 81-year-old male with indwelling Mena catheter placed by Dr. Andrews on presenting with Mena catheter dysfunction. He states has not been draining. He has some suprapubic pressure. Denies any fever or chills. No nausea or vomiting. 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 History of echocardiogram History of endocarditis History of rheumatic fever History of stroke Hx of transesophageal echocardiography (EUGENIE) for monitoring Hyperlipidemia Indwelling urethral catheter present Injury of back senior care (current) use of anticoagulants Muscle spasms of neck Non-smoker Osteoarthritis of right knee Prostate disease Pseudogout Seizure disorder Seizure disorder Thoracic aortic aneurysm Urinary retention Uses wheelchair Walker as ambulation aid Wears glasses Wears partial dentures Home Medications levetiracetam 1,500 mg PO QHS 02/15/13 [History Last Taken 11/28/17 19:00] finasteride 5 mg PO QHS 06/02/14 [History Last Taken 11/28/17 19:00] calcium carbonate 600 mg calcium (1,500 mg) tablet 600 mg PO BID tab 05/23/17 [History Last Taken Unknown] levetiracetam 1,000 mg tablet 1,000 mg PO DAILY 05/23/17 [History Last Taken 08/29/21] romkohxx-zic-rrbte acid 0.4 mg-lycopene 300 mcg-lutein 250 mcg tablet 1 tab PO QDAY 05/23/17 [History Last Taken Unknown] phenytoin sodium extended 100 mg capsule 100 mg PO BID cap 05/23/17 [History Last Taken 08/29/21] alendronate 70 mg tablet 70 mg PO FERNANDEZ 28 Days #4 08/05/17 [History Last Taken 11/23/17] rosuvastatin 5 mg tablet 5 mg PO QHS 90 Days #90 08/05/17 [History Last Taken 11/28/17 19:00] tamsulosin 0.4 mg capsule 0.4 mg PO BID 08/05/17 [History Last Taken 11/28/17 19:00] cyanocobalamin (vitamin B-12) 500 mcg tablet 1,000 mcg PO .COMPLEX tab 12/10/17 [History Last Taken Unknown] donepezil 10 mg tablet 10 mg PO QHS 02/16/20 [History Last Taken Unknown] ergocalciferol (vitamin D2) 1,250 mcg (50,000 unit) capsule 50,000 unit PO Q2W cap 02/16/20 [History Last Taken Unknown] warfarin 2.5 mg PO WETHFR 08/23/21 [History Last Taken Unknown] warfarin 5 mg PO SUSA 08/23/21 [History Last Taken 08/26/21] ciprofloxacin HCl [Cipro] 500 mg PO BID #10 tab 10/16/21 [Rx Last Taken Unknown] Allergy/AdvReac Type Severity Reaction Status Date / Time No Known Allergies Allergy Verified 10/16/21 17:27 Family History Father Cancer Lung cancer Mother Old age Surgical History H/O aortic valve replacement History of back surgery (~1990) History of mechanical aortic valve replacement Social History household members: spouse Smoking Status: Never smoker alcohol intake: never substance use type: does not use diet: other caffeine: No what type of physical activity do you participate in: weight training frequency: 3-4 times per week duration: 45-60 minutes/day seatbelt use: always do you feel safe at home: Yes ROS ROS ED Constitutional Constitutional ED: Denies chills, fever(s) or sweats Eyes Eyes: Denies blurry vision or change in vision ENT ENT ED: Denies ear pain or sore throat Cardiovascular Cardiovascular: Denies chest pain, palpitations or racing heartbeat Respiratory/Chest Respiratory/Chest: Denies cough, dyspnea or sputum Gastrointestinal Gastrointestinal: Reports abdominal pain; Denies constipation, diarrhea, nausea or vomiting Genitourinary Genitourinary ED: Reports other Details: Mena catheter dysfunction ; Denies dysuria, hematuria or urinary frequency Musculoskeletal Musculoskeletal: Denies arthralgias, myalgias or neck pain Integumentary Denies abscess, Abrasions or rash Neurologic Neurologic: Denies headache(s), paresthesias or weakness Psychiatric Psychiatric: Denies anxiety, depression, suicidal ideation or suicidal thoughts Endocrine Endocrinology: Denies polydipsia or polyuria EXAM Physical Exam Const Vital Signs: 10/16/21 17:27 Temperature 97.2 F L Temperature Source Temporal Pulse Rate 98 Respiratory Rate 16 Blood Pressure 126/76 H Blood Pressure Mean 92 Pulse Ox 98 Oxygen Delivery Method Room Air Positive well nourished General Appearance ED: NAD; Negative for pallor HEENT normocephalic and atraumatic Eyes PERRL and EOMs intact bilaterally Resp normal respiratory effort and clear to auscultation bilaterally Cardio regular rate and regular rhythm GI non-distended Palpation: soft no CVA tenderness Neuro oriented x3, CN's II-XII intact bilaterally, moves all extremities, no focal motor deficits and no sensory deficits noted Sensorium / Orientation: alert Psych mental status grossly normal Skin General Skin Exam: Negative for jaundice or pallor Rashes: no rashes MDM MDM MDM Narrative Medical decision making narrative: Mena catheter was adjusted. We were able to obtain 700 cc of dark brown urine. Patient states that he feels like a new man. Urinalysis is sent and does show positive nitrites, 5 or leukocyte esterase, 4+ bacteria given this I will cover him with Cipro. Urine culture sent. INR is therapeutic at 2. WBCs are 12.2. Hemoglobin hematocrit are stable. Renal function within normal limits. Patient will follow up with Dr. Andrews outpatient for Mena catheter care. Impression: 1. Mena catheter dysfunction 2. UTI Lab Data Labs: Laboratory Results - last 24 hr 10/16/21 10/16/21 10/16/21 18:00 18:00 18:00 WBC 12.2 H RBC 4.47 L Hgb 13.9 Hct 42.1 MCV 94.2 H MCH 31.1 MCHC 33.0 RDW Std Deviation 43.9 RDW Coeff of Fide 12.7 Plt Count 165 MPV 11.5 Immature Gran % (Auto) 0.500 Neut % (Auto) 79.9 H Lymph % (Auto) 9.2 L [place] % (Auto) 9.2 Eos % (Auto) 1.0 Baso % (Auto) 0.2 Absolute Neuts (auto) 9.8 H Absolute Lymphs (auto) 1.12 Nucleated RBC % 0 PT 22.0 H INR 2.0 Sodium 140 Potassium 4.5 Chloride 109 H Carbon Dioxide 27.0 Anion Gap 4 L BUN 23 H Creatinine 1.08 Estim Creat Clear Calc 53.66 Est GFR (MDRD) Af Amer 85 Est GFR (MDRD) Non-Af 70 BUN/Creatinine Ratio 21.3 H Glucose 98 Calcium 8.8 Urine Color Urine Clarity Urine pH Ur Specific [place] Urine Protein Urine Glucose (UA) Urine Ketones Urine Occult Blood Urine Nitrite Urine Bilirubin Urine Urobilinogen Ur Leukocyte Esterase Urine RBC Urine WBC Ur Squamous Epith Cells Urine Bacteria Urine Mucus 10/16/21 18:00 WBC RBC Hgb Hct MCV MCH MCHC RDW Std Deviation RDW Coeff of Fide Plt Count MPV Immature Gran % (Auto) Neut % (Auto) Lymph % (Auto) [place] % (Auto) Eos % (Auto) Baso % (Auto) Absolute Neuts (auto) Absolute Lymphs (auto) Nucleated RBC % PT INR Sodium Potassium Chloride Carbon Dioxide Anion Gap BUN Creatinine Estim Creat Clear Calc Est GFR (MDRD) Af Amer Est GFR (MDRD) Non-Af BUN/Creatinine Ratio Glucose Calcium Urine Color Brown Urine Clarity Cloudy Urine pH 7.0 Ur Specific [place] 1.010 Urine Protein 100 H Urine Glucose (UA) Normal Urine Ketones Negative Urine Occult Blood 250 H Urine Nitrite Positive H Urine Bilirubin Negative Urine Urobilinogen Normal Ur Leukocyte Esterase 500 H Urine RBC > 100 SEEN Urine WBC >100 SEEN Ur Squamous Epith Cells 5-10 SEEN Urine Bacteria 4+ Urine Mucus 0 SEEN Discharge Plan Triage Chief Complaint: Male Pain/Injury Other Complaint: Complaint ED Provider: Kj Renae Dx/Rx/DC Orders Instructions: ED Urinary Retention, Male, ED CYSTITIS Female Adult Prescriptions: New ciprofloxacin HCl [Cipro] 500 mg tablet 500 mg PO BID Qty: 10 RF: 0 No Action cyanocobalamin (vitamin B-12) 500 mcg tablet 1,000 mcg PO .COMPLEX RF: 0 lwrevbhd-bra-FH-lycopen-lutein [Centrum Silver] 0.4-300-250 mg-mcg-mcg tablet 1 tab PO QDAY RF: 0 calcium carbonate 600 mg calcium (1,500 mg) tablet 600 mg PO BID RF: 0 tamsulosin [Flomax] 0.4 mg capsule,extended release 24hr 0.4 mg PO BID RF: 0 alendronate 70 mg tablet 70 mg PO FERNANDEZ 28 Days Qty: 4 RF: 0 rosuvastatin 5 mg tablet 5 mg PO QHS 90 Days Qty: 90 RF: 0 ergocalciferol (vitamin D2) 1,250 mcg (50,000 unit) capsule 50,000 unit PO Q2W RF: 0 donepezil 10 mg tablet 10 mg PO QHS RF: 0 levetiracetam 750 MG tablet 1,500 mg PO QHS RF: 0 levetiracetam 1,000 MG tablet 1,000 mg PO DAILY RF: 0 phenytoin sodium extended 100 MG capsule 100 mg PO BID RF: 0 finasteride 5 MG tablet 5 mg PO QHS RF: 0 warfarin 5 mg tablet 5 mg PO SUSA RF: 0 warfarin 1 mg tablet 2.5 mg PO WETHFR RF: 0 Primary Care Provider: Magdaleno Flores Referrals: Magdaleno Flores MD [Primary Care Provider] - Kevin Andrews MD [STAFF PHYSICIAN] - [facility] appointment Disposition Disposition: Home, Self Care Discharge Date/Time: 10/16/21 19:08
[2021-10-16] MEDS: Ciprofloxacin 500 MG Tablet PO (18:33)
[2021-10-16 18:41] LABS: Anion Gap 4 (5-15); BUN 23 mg/dL (7-18); BUN/Creat Ratio 21.3 RATIO (10-20); Calcium,Total 8.8 mg/dL (8.5-10.1); Chloride 109 mmol/L (98-107); Creatinine, Serum 1.08 mg/dL (0.70-1.30); EST Glomerular Filtration Rate 70 mL/min (>60); Est Glom Filt Rate - Afr Amer 85 mL/min (>60); Estimated Creatinine Clearance 53.66 ml/min; Glucose 98 mg/dL (74-106); Potassium 4.5 mmol/L (3.5-5.1); Sodium Level 140 mmol/L (136-145)
--- NOTE | 2021-10-16 19:08 | ED.RN ---
mentioned changing catheter to MD- states to wait for Dr. Andrews next week
--- NOTE | 2021-10-16 19:27 | ED.RN ---
home health nurse called in for pt update
== END 2021-10-16 19:08 | disposition home or self-care (01) ==
PROVIDERS: Emergency Provider Student in an Organized Health Care Education/Training Program; PCP Family Medicine; Visit Provider Student in an Organized Health Care Education/Training Program
DX: T83.091A Other mechanical complication of indwelling urethral catheter, initial encounter (principal); N39.0 Urinary tract infection, site not specified; R10.9 Unspecified abdominal pain; X58.XXXA Exposure to other specified factors, initial encounter
CPT/HCPCS: 80048; 81001; 85025; 85610; 87086; 87088; 87186; 99283; A4216

== ENCOUNTER → 2021-10-19 | Outpatient (CLI) | payer MEDICARE, BC, SELFPAY ==
[2021-10-19 12:05] LABS: INR Fingerstick 1.3; Prothrombin Time Fingerstick 16.1 SEC (11.7-14.9)
== END | disposition home or self-care (01) ==
LOC: LAB 11:37
PROVIDERS: PCP Family Medicine; Visit Provider Internal Medicine Cardiovascular Disease
DX: Z98.890 Other specified postprocedural states (principal); Z95.2 Presence of prosthetic heart valve; Z79.01 Long term (current) use of anticoagulants
CPT/HCPCS: 36416; 85610

== ENCOUNTER → 2021-10-24 | Outpatient (CLI) | payer MEDICARE, BC, SELFPAY ==
[2021-10-24 11:25] LABS: INR Fingerstick 2.4; Prothrombin Time Fingerstick 28.1 SEC (11.7-14.9)
== END | disposition home or self-care (01) ==
LOC: LAB 09:05
PROVIDERS: PCP Family Medicine; Referring Provider Internal Medicine Cardiovascular Disease; Visit Provider Internal Medicine Cardiovascular Disease
DX: Z98.890 Other specified postprocedural states (principal); Z95.2 Presence of prosthetic heart valve; Z79.01 Long term (current) use of anticoagulants
CPT/HCPCS: 36416; 85610

== ENCOUNTER → 2021-11-01 | Outpatient (CLI) | payer MEDICARE, BC, SELFPAY ==
[2021-11-01 11:37] LABS: International Normalized Ratio 1.4; Prothrombin Time (Protime)PT. 17.2 SECONDS (11.7-14.9)
[2021-11-01 11:41] LABS: Vitamin B12 584 pg/mL (211-911)
[2021-11-01 11:47] LABS: Phenytoin (Dilantin) Level 8.9 mL (10.0-20.0)
[2021-11-01 12:18] LABS: AST(SGOT) 24 U/L (15-37); Alanine Aminotransfer ALT/SGPT 25 U/L (16-61); Albumin, Serum 3.6 g/dL (3.2-5.0); Alkaline Phosphatase 115 U/L (45-117); Bilirubin, Direct 0.15 mg/dL (0.00-0.30); Cholesterol 155 mg/dL (200); Globulin 3.4 g/dL (2.2-4.2); High Density Lipoprotein 70 mg/dL; Thyroid Stim Hormone (TSH) 1.63 uIU/mL (0.358-3.74); Triglycerides 77 mg/dL; Very Low Density Lipoprotein 15 mg/dL (5-40)
[2021-11-07 16:09] LABS: Free Kappa Light Chains 26.7 mg/L (3.3-19.4); Vitamin B1, Thiamine 177.7 nmol/L (66.5-200.0)
[2021-11-07 20:44] LABS: KEPPRA (LEVETIRACETAM) 45.2 ug/mL (10.0-40.0)
== END | disposition home or self-care (01) ==
LOC: LAB 08:30
PROVIDERS: Internal Medicine Cardiovascular Disease; PCP Family Medicine; Referring Provider Psychiatry & Neurology Neurology; Visit Provider Internal Medicine Cardiovascular Disease
DX: G40.909 Epilepsy, unspecified, not intractable, without status epilepticus (principal); G62.9 Polyneuropathy, unspecified; E78.00 Pure hypercholesterolemia, unspecified; I51.9 Heart disease, unspecified; Z86.73 Personal history of transient ischemic attack (TIA), and cerebral infarction without residual deficits; Z79.01 Long term (current) use of anticoagulants; Z98.890 Other specified postprocedural states; Z95.2 Presence of prosthetic heart valve
CPT/HCPCS: 36415; 80061; 80076; 80177; 80185; 82140; 82607; 82746; 83883; 84425; 84443; 85610

== ENCOUNTER → 2021-11-08 | Outpatient (CLI) | payer MEDICARE, BC, SELFPAY ==
[2021-11-08 10:26] LABS: Prothrombin Time Fingerstick 23.7 SEC (11.7-14.9)
== END | disposition home or self-care (01) ==
LOC: LAB 08:26
PROVIDERS: PCP Family Medicine; Referring Provider Internal Medicine Cardiovascular Disease; Visit Provider Internal Medicine Cardiovascular Disease
DX: Z79.01 Long term (current) use of anticoagulants (principal); Z98.890 Other specified postprocedural states; Z95.2 Presence of prosthetic heart valve; Z86.73 Personal history of transient ischemic attack (TIA), and cerebral infarction without residual deficits
CPT/HCPCS: 36416; 85610

== ENCOUNTER → 2021-11-22 | Outpatient (CLI) | payer MEDICARE, BC, SELFPAY ==
[2021-11-22 10:45] LABS: INR Fingerstick 3.4; Prothrombin Time Fingerstick 38.1 SEC (11.7-14.9)
== END | disposition home or self-care (01) ==
LOC: LAB 08:24
PROVIDERS: PCP Family Medicine; Referring Provider Internal Medicine Cardiovascular Disease; Visit Provider Internal Medicine Cardiovascular Disease
DX: Z79.01 Long term (current) use of anticoagulants (principal); Z98.890 Other specified postprocedural states; Z95.2 Presence of prosthetic heart valve; Z86.73 Personal history of transient ischemic attack (TIA), and cerebral infarction without residual deficits
CPT/HCPCS: 36416; 85610

== ENCOUNTER → 2021-12-06 | Outpatient (CLI) | payer MEDICARE, BC, SELFPAY ==
[2021-12-06 11:10] LABS: INR Fingerstick 3.1; Prothrombin Time Fingerstick 35.5 SEC (11.7-14.9)
== END | disposition home or self-care (01) ==
LOC: LAB 08:16
PROVIDERS: PCP Family Medicine; Referring Provider Internal Medicine Cardiovascular Disease; Visit Provider Internal Medicine Cardiovascular Disease
DX: Z79.01 Long term (current) use of anticoagulants (principal); Z98.890 Other specified postprocedural states; Z95.2 Presence of prosthetic heart valve; Z86.73 Personal history of transient ischemic attack (TIA), and cerebral infarction without residual deficits
CPT/HCPCS: 36416; 85610

== ENCOUNTER 2021-12-18 12:39 | Inpatient (IN) | payer MEDICARE, BC, SELFPAY ==
[2021-12-18 12:42] VITALS: BP 148/78; PULSE 56; RESP 16; TEMP 36.4; O2SAT 98; BMI 23.3
[2021-12-18] MEDS: HYDROcodone Bitartrate/Apap 5/325 Tablet PO (13:33)
[2021-12-18 13:36] LABS: Absolute Lymphocyte Count 1.43 X10^3/uL (0.83-4.51); Absolute Neutrophil Count 4.8 X10^3/uL (2.0-7.7); Basophil# 0.02 X10^3/uL; Basophil% 0.3 % (0-1); Eosinophil# 0.09 X10^3/uL; Eosinophils% 1.3 % (0-5); Hematocrit 44.7 % (40-54); Hemoglobin 15.2 g/dL (13.0-16.5); Lymphocyte # 1.43 X10^3/ul (0.83-4.51); Mean Corpuscular Hgb 31.5 pg (27.0-32.0); Mean Corpuscular Volume 92.5 fL (80-94); Mean Platelet Vol. 11.5 fl (6.2-12.0); Monocyte# 0.76 X10^3/uL; Monocyte% 10.6 % (0-10); NRBC Flagged by Analyzer 0 % (0-5); Neutrophil # 4.84 X10^3/uL (2.7-7.7); Neutrophil % 67.5 % (47-70); Platelet Count 129 K/mm3 (150-450); RBC Distribution Width CV 12.2 % (11.6-14.6); RBC Distribution Width SD 41.9 fl (35.1-43.9); Red Blood Count 4.83 M/mm3 (4.6-6.2); White Blood Count 7.2 K/mm3 (4.4-11.0)
--- NOTE | 2021-12-18 13:37 | EDS_ITS ---
HPI History of Present Illness HPI Narrative: Patient presents with swelling to his right knee that occurred yesterday evening. Patient states it began rather suddenly. Patient states it has been constant. Patient states he has pain in his right knee. Patient describes as deep pain. Patient states he is unable to bear weight or ambulate on his knee. Patient states he is unable to extend his knee due to the pain. Patient states nothing seems to help with this pain. Patient denies any paresthesias or weakness. Patient is on Coumadin for a prosthetic heart valve. Chief Complaint: Lower Extremity Injury Informant: patient Onset/Context/Timing Onset: Yesterday Context: Sudden Onset Timing: Continuous Quality of Pain: - (Deep) Location: Right knee Associated Symptoms Associated Symptoms: Negative for Parasthesia, Weakness or Loss of Funtion PFSH PFSH Medical History Alzheimer disease Aortic root dilatation Bladder disease Cardiology follow-up encounter Depression Diastolic dysfunction Dietary restriction Fall Herniated lumbar disc without myelopathy Herniated lumbar disc without myelopathy History of echocardiogram History of endocarditis History of rheumatic fever History of stroke Hx of transesophageal echocardiography (EUGENIE) for monitoring Hyperlipidemia Indwelling urethral catheter present 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 Muscle spasms of neck Non-smoker Osteoarthritis of right knee Prostate disease Pseudogout Seizure disorder Seizure disorder Thoracic aortic aneurysm Urinary retention Uses wheelchair Walker as ambulation aid Wears glasses Wears partial dentures Home Medications calcium carbonate 600 mg calcium (1,500 mg) tablet 600 mg PO BID supplement 05/23/17 [History Last Taken Unknown] shkozrmy-nap-gnhsi acid 0.4 mg-lycopene 300 mcg-lutein 250 mcg tablet (Centrum Silver) 1 tab PO QDAY 05/23/17 [History Last Taken Unknown] alendronate 70 mg tablet 70 mg PO FERNANDEZ bone health 28 days ##4 08/05/17 [History Last Taken 11/23/17] rosuvastatin 5 mg tablet 5 mg PO QHS cholesterol 90 days ##90 08/05/17 [History Last Taken 11/28/17 19:00] tamsulosin 0.4 mg capsule (Flomax) 0.4 mg PO BID urinary retension 08/05/17 [History Last Taken 11/28/17 19:00] cyanocobalamin (vitamin B-12) 500 mcg tablet 1,000 mcg PO .COMPLEX 12/10/17 [History Last Taken Unknown] ergocalciferol (vitamin D2) 1,250 mcg (50,000 unit) capsule 50,000 unit PO Q2W 02/16/20 [History Last Taken Unknown] warfarin 1 mg tablet 7.5 mg PO SUWESA 10/19/21 [History Last Taken Unknown] warfarin 5 mg tablet 5 mg PO MOTUTHFR 10/19/21 [History Last Taken Unknown] levetiracetam 1,000 mg tablet 1,000 mg PO QAM seizure #90 tabs 10/23/21 [Rx Last Taken Unknown] levetiracetam 750 mg tablet 1,500 mg PO QHS #180 tabs 10/23/21 [Rx Last Taken Unknown] phenytoin sodium extended 100 mg capsule 100 mg PO BID #180 caps 10/23/21 [Rx Last Taken Unknown] donepezil 10 mg tablet 10 mg PO DAILY 12/18/21 [History Last Taken Unknown] finasteride 5 mg tablet 5 mg PO DAILY 12/18/21 [History Last Taken Unknown] Allergy/AdvReac Type Severity Reaction Status Date / Time No Known Allergies Allergy Verified 12/18/21 12:46 Family History Father Cancer Lung cancer Mother Old age Surgical History H/O aortic valve replacement History of back surgery (~1990) History of mechanical aortic valve replacement Social History household members: spouse Smoking Status: Never smoker alcohol intake: never substance use type: does not use diet: other caffeine: No what type of physical activity do you participate in: weight training frequency: 3-4 times per week duration: 45-60 minutes/day seatbelt use: always do you feel safe at home: Yes ROS ROS ED Constitutional Constitutional ED: Denies chills or fever(s) Eyes Eyes: Denies blurry vision or change in vision ENT ENT ED: Denies rhinorrhea or sore throat Cardiovascular Cardiovascular: Denies chest pain or palpitations Respiratory/Chest Respiratory/Chest: Denies cough or dyspnea Gastrointestinal Gastrointestinal: Denies nausea or vomiting Genitourinary Genitourinary ED: Denies dysuria or hematuria Musculoskeletal Musculoskeletal: Reports arthralgias; Denies back pain or neck pain Integumentary Denies abscess or rash Neurologic Neurologic: Denies headache(s) or weakness Allergic/Immunologic Allergic/Immunologic ED: Denies mouth swelling or urticaria EXAM Physical Exam Const Vital Signs: 12/18/21 12:42 Temperature 97.5 F L Temperature Source Oral Pulse Rate 56 L Respiratory Rate 16 Blood Pressure 148/78 H Blood Pressure Mean 101 Pulse Ox 98 Oxygen Delivery Method Room Air Positive well nourished and well developed General Appearance ED: well developed and NAD HEENT Reports moist mucous membranes Neck full ROM Extremity Extremity Narrative: There is a large effusion to the right knee. There is no erythema or warmth. Range of motion was limited in all motions of the right knee secondary to pain. Patient was unable to extend the knee off of the bed due to pain. There is atrophy of the thigh and lower leg muscles on the right. Neuro oriented x3, CN's II-XII intact bilaterally and no sensory deficits noted Sensorium / Orientation: alert Psych mental status grossly normal MDM MDM MDM Narrative Medical decision making narrative: X-rays of the right knee were obtained. There are 3 views. On my interpretation, there is a suprapatellar effusion. There is no acute fracture. There are some degenerative changes. There are some calcifications noted. This was also interpreted by the radiologist who could not rule out underlying fracture but would recommend further evaluation with CT scan. Because of this, CT scan of the right knee was obtained. There is no acute fracture or dislocation. There is a large hemarthrosis noted. This was interpreted by the radiologist and reviewed by myself. CBC was within normal limits. Basic metabolic profile was within normal limits. PT was INR was obtained. PT was 91.3 and INR is 11.8. Patient is not having any active bleeding other than the hemarthrosis in his right knee. Patient was given a dose of oral vitamin K. Patient was unable to ambulate because of the pain and hemarthrosis in his right knee. Because of this, case was discussed with the hospitalist. She recommended consulting orthopedics. The case was discussed with Dr. Ruiz from orthopedics. He was willing to follow along with the patient. Patient will be admitted to the hospital. Patient and family understood and were agreeable with the plan. All questions were answered. Lab Data Attestation: I reviewed the patient's lab results. Labs: Laboratory Results - last 24 hr 12/18/21 12/18/21 12/18/21 13:30 13:30 13:30 WBC 7.2 RBC 4.83 Hgb 15.2 Hct 44.7 MCV 92.5 MCH 31.5 MCHC 34.0 RDW Std Deviation 41.9 RDW Coeff of Fide 12.2 Plt Count 129 L MPV 11.5 Immature Gran % (Auto) 0.300 Neut % (Auto) 67.5 Lymph % (Auto) 20.0 [place] % (Auto) 10.6 H Eos % (Auto) 1.3 Baso % (Auto) 0.3 Absolute Neuts (auto) 4.8 Absolute Lymphs (auto) 1.43 Nucleated RBC % 0 PT 91.3 H INR 11.8 H* Sodium 141 Potassium 4.2 Chloride 109 H Carbon Dioxide 29.0 Anion Gap 3 L BUN 14 Creatinine 0.93 Estim Creat Clear Calc 64.41 Est GFR (MDRD) Af Amer 101 Est GFR (MDRD) Non-Af 84 BUN/Creatinine Ratio 15.1 Glucose 94 Calcium 8.8 Radiography Diagnostic Testing: Clinical Impression(s) from Imaging Studies Knee X-Ray 12/18/21 13:40 IMPRESSION: Degenerative bone changes, suprapatellar effusion, 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 Vascular calcifications. Cannot rule out underlying fracture would recommend further evaluation with CT scan or MRI. Electronically Signed: Julián Scott MD at 14:03 EDT Reading Location ID and State: [facility] / [place] Tel , Service support , Lower Extremity CT 12/18/21 14:13 IMPRESSION: Extensive degenerative changes visualized with suggestion of bony contusion distal femur but no evidence of displaced fracture is seen. 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 Suprapatellar effusion suggestive of hemarthrosis. Fluid along the posterior aspect of the medial femoral condyle. Electronically Signed: Julián Scott MD at 15:05 EDT Reading Location ID and State: [facility] / [place] Tel , Service support , Discharge Plan Triage Chief Complaint: Lower Extremity Injury ED Provider: Brad Miller Dx/Rx/DC Orders Clinical Impression: Hemarthrosis of knee, right, Warfarin-induced coagulopathy, Debility Prescriptions: No Action cyanocobalamin (vitamin B-12) 500 mcg tablet 1,000 mcg PO .COMPLEX Rx Instructions: chandra ortiz takes Sundays hxlyndwq-yls-YI-lycopen-lutein [Centrum Silver] 0.4-300-250 mg-mcg-mcg tablet 1 tab PO QDAY calcium carbonate 600 mg calcium (1,500 mg) tablet 600 mg PO BID tamsulosin [Flomax] 0.4 mg capsule,extended release 24hr 0.4 mg PO BID alendronate 70 mg tablet 70 mg PO FERNANDEZ 28 Days Qty: 4 Label Comments: rosuvastatin 5 mg tablet 5 mg PO QHS 90 Days Qty: 90 Label Comments: TAKE 1 TABLET BY MOUTH EVERY DAY ergocalciferol (vitamin D2) 1,250 mcg (50,000 unit) capsule 50,000 unit PO Q2W Rx Instructions: due 08/30 levetiracetam 1,000 mg tablet 1,000 mg PO QAM Qty: 90 1RF levetiracetam 750 mg tablet 1,500 mg PO QHS Qty: 180 1RF phenytoin sodium extended 100 mg capsule 100 mg PO BID Qty: 180 1RF donepezil 10 mg tablet 10 mg PO DAILY Label Comments: TAKE 1 TABLET BY MOUTH EVERYDAY AT BEDTIME finasteride 5 mg tablet 5 mg PO DAILY Label Comments: TAKE 1 TABLET BY MOUTH EVERY DAY warfarin 1 mg tablet 7.5 mg PO Protocol: Dose Management Condition: Friday Dose/Route: 6 mg Instruction: 1 x 1 mg tablet, 1 x 5 mg tablet Condition: Friday Dose/Route: 6 mg Instruction: 1 x 1 mg tablet, 1 x 5 mg tablet Condition: Friday Dose/Route: 8 mg Instruction: 3 x 1 mg tablets, 1 x 5 mg tablet Condition: Friday Dose/Route: 6 mg Instruction: 1 x 1 mg tablet, 1 x 5 mg tablet Condition: Dose/Route: 8 mg Instruction: 3 x 1 mg tablets, 1 x 5 mg tablet Condition: Friday Dose/Route: 6 mg Instruction: 1 x 1 mg tablet, 1 x 5 mg tablet Condition: Friday Dose/Route: 6 mg Instruction: 1 x 1 mg tablet, 1 x 5 mg tablet Protocol Text: Adjustment Start Date: 12/06/21 INR Value: 3.1 INR Date: 12/06/21 Recheck Date: 12/20/21 warfarin 5 mg tablet 5 mg PO MOTUTHFR Protocol: Dose Management Condition: Friday Dose/Route: 6 mg Instruction: 1 x 1 mg tablet, 1 x 5 mg tablet Condition: Friday Dose/Route: 6 mg Instruction: 1 x 1 mg tablet, 1 x 5 mg tablet Condition: Friday Dose/Route: 8 mg Instruction: 3 x 1 mg tablets, 1 x 5 mg tablet Condition: Friday Dose/Route: 6 mg Instruction: 1 x 1 mg tablet, 1 x 5 mg tablet Condition: Dose/Route: 8 mg Instruction: 3 x 1 mg tablets, 1 x 5 mg tablet Condition: Friday Dose/Route: 6 mg Instruction: 1 x 1 mg tablet, 1 x 5 mg tablet Condition: Friday Dose/Route: 6 mg Instruction: 1 x 1 mg tablet, 1 x 5 mg tablet Protocol Text: Adjustment Start Date: 12/06/21 INR Value: 3.1 INR Date: 12/06/21 Recheck Date: 12/20/21 Primary Care Provider: Magdaleno Flores Referrals: Magdaleno Flores MD [Primary Care Provider] - Disposition Disposition: Acute Care [facility]
--- NOTE | 2021-12-18 13:40 | RAD_ITS ---
INDICATION: Injury/Pain EXAMINATION/TECHNIQUE: X-RAY - RIGHT XR Knee 3 Views 3 VIEWS COMPARISON: None. FINDINGS: SOFT TISSUES: Prominent suprapatellar effusion is seen. Soft tissue prominence, a calcification is visualized in the intertrochanteric notch, overlying the tibial tubercle, this could be superimposition of the vascular calcifications however would recommend the clinical correlation. Calcifications are visualized within the joint space most prominent in the lateral joint space, this could represent CPPD. The quadriceps and patellar tendons are visualized and are unremarkable. BONES/JOINTS: A 2.1 x 1.7 cm subcortical sclerotic bone density is visualized in the distal femoral diaphysis/metaphysis, this is underlying the suprapatellar effusion, no evidence of irregularity in the overlying cortex. Mild to moderate narrowing of the medial joint space, mild narrowing of the lateral and patellofemoral joint spaces is seen. Degenerative changes with osteophyte formation is seen. No evidence of cortical irregularity or lucencies suggest a fracture, no evidence of lytic or sclerotic bone lesion is seen. 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 Vascular calcifications. Cannot rule out underlying fracture would recommend further evaluation with CT scan or MRI. Electronically Signed: Julián Scott MD at 14:03 EDT Reading Location ID and State: [facility] / [place] Tel , Service support ,
[2021-12-18 13:45] LABS: International Normalized Ratio 11.8; Prothrombin Time (Protime)PT. 91.3 SECONDS (11.7-14.9)
[2021-12-18 13:48] LABS: Anion Gap 3 (5-15); BUN 14 mg/dL (7-18); BUN/Creat Ratio 15.1 RATIO (10-20); Calcium,Total 8.8 mg/dL (8.5-10.1); Chloride 109 mmol/L (98-107); Creatinine, Serum 0.93 mg/dL (0.70-1.30); EST Glomerular Filtration Rate 84 mL/min (>60); Est Glom Filt Rate - Afr Amer 101 mL/min (>60); Estimated Creatinine Clearance 64.41 ml/min; Glucose 94 mg/dL (74-106); Potassium 4.2 mmol/L (3.5-5.1); Sodium Level 141 mmol/L (136-145)
--- NOTE | 2021-12-18 14:13 | CT_ITS ---
STUDY: CT RIGHT KNEE WITHOUT CONTRAST REASON FOR EXAM: Male, 81 years old. Knee pain RADIATION DOSAGE (If Supplied By Facility): CTDIvol = ( 15.35 ) mGy, DLP = ( 656.95 ) mGycm TECHNIQUE: Transaxial CT imaging of the knee was performed. Coronal and sagittal images were reformatted. Individualized dose optimization techniques were used for this CT. COMPARISON: Knee x-ray obtained the same day.. FINDINGS: Subcortical increased bone density visualized in the anterior femoral metaphysis seen on axial series 3 image 59 correlates with a sclerotic lesion visualized on the x-ray and is felt to represent a 2.4 x 2.3 x 1.8 cm bone island/bone contusion, no evidence of disruption of the overlying cortex is seen. Subchondral lucencies visualized consistent with subchondral cysts. Linear calcifications visualized within the joint space suggestive of CPPD. Calcifications visualized along the articular surface of the distal femur suggestive of calcification of the articular cartilage. Calcification visualized in the distal ACL and the proximal ACL calcification in the intercondylar notch along the collateral ligaments. Seen on sagittal series 601 image 36 and on coronal series 602 image 33 which represents the calcification that was visualized on the x-ray, no evidence of cortical irregularity in the articular cartilage of the proximal tibia, tibial plateaus demonstrate no evidence of displaced fracture. Narrowing of the joint spaces most prominent overlying the medial joint space. 1.0 x 2.4 x 2.3 cm circumscribed fluid collection visualized along the posterior medial aspect of the medial femoral condyle seen on axial series 2 image 62 and coronal series 104 image 42. Small suprapatellar effusion is visualized however demonstrates the patient''s densities, no layering is seen however along the medial aspect there are subtle areas of increased attenuation suggestive of blood or blood vessels seen on sagittal series 103 image 34, would recommend clinical correlation and if this represents a hematoma. Normal lateral femoral condyle and lateral tibial plateau. There is preservation of the articular joint space of the lateral knee compartment. Normal proximal tibiofibular articulation. The quadriceps tendon is grossly normal. The patellar tendon is grossly normal. Normal Hoffa''s fat pad. Vascular calcifications, no evidence of collections in the popliteal CT/Extremity Lower without Contra IMPRESSION: Extensive degenerative changes visualized with suggestion of bony contusion distal femur but no evidence of displaced fracture is seen. 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 Suprapatellar effusion suggestive of hemarthrosis. Fluid along the posterior aspect of the medial femoral condyle. Electronically Signed: Julián Scott MD at 15:05 EDT ,
[2021-12-18] MEDS: Phytonadione (Vit K1) 5 MG TABLET PO (14:38)
[2021-12-18 16:41] VITALS: BP 149/88; PULSE 54; RESP 17; O2SAT 97
--- NOTE | 2021-12-18 16:54 | CM.ED ---
Addendum entered by Evelin Garcia 12/18/21 17:05: ASHLEY messaged Lilliam with [facility]. Lilliam confirms pt is active with them for SN. Original Note: Social Work Note SW received call from pt's daughter Yesenia stating she was told by [facility] to call this worker and let this worker know pt is active with [facility]. Lluvia states that an RN comes out 1x month to change pt's catheter bag. Yesenia states that in the past pt had OT services as well but states pt is only active with RN at this time. Yesenia states that pt also needs a bedside commode and hospital bed. ASHLEY informed Yesenia that bedside commodes are not covered by insurance so she can go to either [employer], [employer] to package pick up a bedside commode for pt. ASHLEY informed Yesenia that for the hospital bed a script will be needed and this worker can ask MD but if MD is not willing to sign, then [facility] can assist in getting pt set up for a hospital bed. Yesenia states she is not sure how pt is going to be able to return home as pt is frail and unable to get to the bathroom. ASHLEY asked Yesenia if she is thinking SNF placement for pt for short term rehab and Yesenia states she is open to it but states the preference would be for pt to return home with HH, Private Duty Aides and family assist. ASHLEY spoke with Yesenia about the safety concerns with pt returning home if he cannot ambulate. Yesenia states that pt has been to [facility] before. ASHLEY asked when pt was at [facility] and explained that this worker is asking so this worker knows about Medicare Day at SNF. Yesenia states it was back in 2018 and states pt has not been to a SNF since. Yesenia state but financials doesn't matter, we will deal with that later if pt needs the care. Yesenia states that pt is very frail and states he has no upper body strength. Yesenia states that pt would be the happiest if he is able to return home. Yesenia states that she has called [facility] and pt has someone coming out M, W, F. Yesenia states that she has also called [facility] and states that they have a lot of availability. ASHLEY asked Yesenia that if SNF is recommended, which SNF would be the preference and Yesenia states it would be [facility] and that would be the only choice. ASHLEY informed Yesenia that this worker will need to check with the MD to inquire about medically what is going on with pt. Yesenia states understanding. Yesenia states that she is pt's financial POA but states her Dakota Calabrese is HCPOA for pt and he is a physician. ASHLEY spoke with MD. Pt to be admitted to acute. Plan: Admit to acute Evelin Garcia DIRECTOR OF NEIGHBORHOOD SERVICE CENTER, SAFETY INTERN
--- NOTE | 2021-12-18 17:28 | NURSING ---
MED SURG [place] HEMARTHROSIS RT KNEE, COAGULOPATHY
[2021-12-18 17:33] VITALS: BMI 21.2
[2021-12-18 17:44] VITALS: BP 149/88; PULSE 56; RESP 17; TEMP 36.7; O2SAT 98
[2021-12-18 18:30] VITALS: BP 173/89; PULSE 57; RESP 18; TEMP 36.7; O2SAT 95
--- NOTE | 2021-12-18 18:47 | HP.PCM.HOS_ITS ---
HPI - General General Date of Admission: 12/18/21 Date of Service: 12/18/21 Chief Complaint: Right knee pain and swelling HPI Narrative ROBINA MCCAULEY, is a 81 M who presented to the emergency department [facility] on 12/18/2021 secondary to knee swelling and pain. The patient is chronically anticoagulated with Coumadin secondary to aortic valve replacement with goal INR of 2.5-3.5. He states he exercises on a regular basis 3 times and noticed on Friday when he worked out that his knee was a bit stiffer than typical and today his knee was even larger. He was unable to extend his knee secondary to pain and unable to bear weight or ambulate. He denies any other concurrent symptoms and states this started abruptly. He had no known injury to the joint or otherwise. Vital signs on presentation showed a temperature of 97.5, heart rate 56, blood pressure 148/78, Respiratory rate was 16, and Pulse ox was 98% on room air. CBC was unremarkable other than a thrombocytopenia that was mild with a platelet count of 129,000. INR was 11.8 with a PT of 91.3. Chemistry profile was unremarkable. Knee x-ray showed degen erative bone changes with suprapatellar effusion and CPPD calcifications. CT of the knee was performed and showed extensive degenerative changes with suggestion of bony contusion at the distal femur but no evidence of fracture, CPPD disease, calcification in the ligaments, and a suprapatellar effusion suggestive of hemarthrosis with fluid along the posterior aspect of the medial condyle of the femur. In the emergency department he was given medication for pain and vitamin K 5 mg x 1 dose. Given his stable hemoglobin no other aggressive management was pursued. The case was discussed with orthopedic surgery and they indicated they would see the patient in consult. [facility] Medical History Alzheimer disease Aortic root dilatation Bladder disease Cardiology follow-up encounter Depression Diastolic dysfunction Dietary restriction Fall Herniated lumbar disc without myelopathy Herniated lumbar disc without myelopathy History of echocardiogram History of endocarditis History of rheumatic fever History of stroke Hx of transesophageal echocardiography (EUGENIE) for monitoring Hyperlipidemia Indwelling urethral catheter present Injury of back snf (current) use of anticoagulants Muscle spasms of neck Non-smoker Osteoarthritis of right knee Prostate disease Pseudogout Seizure disorder Seizure disorder Thoracic aortic aneurysm Urinary retention Uses wheelchair Walker as ambulation aid Wears glasses Wears partial dentures Home Medications calcium carbonate 600 mg calcium (1,500 mg) tablet 600 mg PO BID supplement 05/23/17 [History Last Taken 12/18/21] swsdmwmg-vhr-wwgxl acid 0.4 mg-lycopene 300 mcg-lutein 250 mcg tablet (Centrum Silver) 1 tab PO QDAY supplement 05/23/17 [History Last Taken 12/17/21] alendronate 70 mg tablet 70 mg PO FERNANDEZ bone health 28 days ##4 08/05/17 [History Last Taken 12/16/21] rosuvastatin 5 mg tablet 5 mg PO QHS cholesterol 90 days ##90 08/05/17 [History Last Taken 12/17/21] tamsulosin 0.4 mg capsule (Flomax) 0.4 mg PO QHS urinary retension 08/05/17 [History Last Taken 12/17/21] cyanocobalamin (vitamin B-12) 500 mcg tablet 1,000 mcg PO .COMPLEX supplement 12/10/17 [History Last Taken 12/18/21] ergocalciferol (vitamin D2) 1,250 mcg (50,000 unit) capsule 50,000 unit PO Q2W supplement 02/16/20 [History Last Taken Unknown] warfarin 1 mg tablet 7.5 mg PO SUWESA blood thinner 10/19/21 [History Last Taken 12/16/21] warfarin 5 mg tablet 5 mg PO MOTUTHFR 10/19/21 [History Last Taken Unknown] levetiracetam 1,000 mg tablet 1,000 mg PO QAM seizure #90 tabs 10/23/21 [Rx Last Taken 12/18/21] donepezil 10 mg tablet 10 mg PO DAILY alzheimers 12/18/21 [History Last Taken 12/17/21] finasteride 5 mg tablet 5 mg PO DAILY prostate 12/18/21 [History Last Taken 12/17/21] levetiracetam 750 mg tablet 1,500 mg PO QHS seizures 12/18/21 [History Last Taken 12/17/21] phenytoin sodium extended 100 mg capsule 100 mg PO BID seizures 12/18/21 [History Last Taken 12/18/21] Allergy/AdvReac Type Severity Reaction Status Date / Time No Known Allergies Allergy Verified 12/18/21 12:46 Family History Father Cancer Lung cancer Mother Old age Surgical History H/O aortic valve replacement History of back surgery (~1990) History of mechanical aortic valve replacement Social History household members: spouse Smoking Status: Never smoker alcohol intake: never substance use type: does not use diet: other caffeine: No what type of physical activity do you participate in: weight training frequency: 3-4 times per week duration: 45-60 minutes/day seatbelt use: always do you feel safe at home: Yes ROS Constitutional Constitutional: Denies anorexia, change in weight, chills, fatigue, fever(s), malaise, night sweats, weakness or other Eyes Eyes: Denies blurry vision, change in eye color, change in vision, discharge from eye(s), double vision, erythema, eye pain, loss of vision or other ENT HEENT: Denies abnormal hearing, dysphagia, ear pain, epistaxis, headache(s), hearing loss, nasal congestion, nasal discharge, post nasal drip, sinus pressure, sore throat or other Cardiovascular Cardiovascular: Denies chest pain, claudication, dyspnea on exertion, edema, lightheadedness, orthopnea, palpitations, paroxysmal nocturnal dyspnea, rapid heart rate, syncope or other Respiratory/Chest Respiratory/Chest: Denies cough, dyspnea, excessive phlegm production, hemoptysis, productive cough, shortness of breath at rest, shortness of breath with exertion, wheezing or other Gastrointestinal Gastrointestinal: Denies abdominal pain, coffee ground emesis, constipation, diarrhea, dyspepsia, hematemesis, hematochezia, loose stools, melena, nausea, vomiting or other Genitourinary Genitourinary: Denies burning urination, difficulty urinating, dysuria, hematuria, nocturia, urinary frequency, urinary hesitancy, urinary incontinence, urinary urgency or other Musculoskeletal Musculoskeletal: Reports joint pain, joint stiffness and joint swelling; Denies arthralgias, back pain, myalgias, neck pain or other Neurologic Neurologic: Reports abnormal gait; Denies abnormal speech, confusion, disequil ibrium, dizziness, focal weakness, headache(s), numbness, paresthesias, seizure- like activity, seizures, syncope, tingling, tremor(s) or other Psychiatric Psychiatric: Denies anxiety, depression, homicidal ideation, suicidal ideation or other Endocrine Endocrinology: Denies change in body appearance, cold intolerance, excessive sweating, heat intolerance, polydipsia, polyuria or other Hematologic/Lymphatic Hematologic/Lymphatic: Denies anemia, easy bleeding, easy bruising, lymphadenopathy or other Allergic/Immunologic Allergic/Immunologic: Denies rhinitis, hives, eczemia, asthma or other Vital Signs Vital Signs Vital Signs: 12/18/21 12:42 12/18/21 16:41 12/18/21 17:44 Temperature 97.5 F L 98.0 F Temperature Source Oral Oral Pulse Rate 56 L 54 L 56 L Respiratory Rate 16 17 17 Blood Pressure 148/78 H 149/88 H 149/88 H Blood Pressure Mean 101 108 108 Blood Pressure Source Blood Pressure Position Blood Pressure Location Pulse Ox 98 97 98 Oxygen Delivery Method Room Air Room Air Room Air 12/18/21 18:30 12/18/21 18:36 Temperature 98.1 F Temperature Source Oral Pulse Rate 57 L Respiratory Rate 18 Blood Pressure 173/89 H Blood Pressure Mean 117 Blood Pressure Source Monitor Blood Pressure Position Semi-Fowlers Blood Pressure Location Right Arm Pulse Ox 95 Oxygen Delivery Method Room Air Room Air Weight Weight: 65.2 kg Body Mass Index (BMI) 21.2 Physical Exam Const alert, oriented x3, no apparent distress, average body habitus, healthy appearin g and well nourished Constitutional Narrative: Elderly white male sitting up, at bedside, patient appears comfortable at this time, nontoxic General Appearance: cooperative HEENT normocephalic, head/scalp atraumatic, hearing grossly normal bilaterally and moist oral mucous membranes HEENT Narrative: Dentures in place, Mallampati 2, no thrush Eyes PERRL, EOMs intact bilaterally and conjunctivae normal Eyes Narrative: No scleral icterus Neck no lymphadenopathy, supple, no JVD and no carotid bruits Neck Narrative: Trachea midline, no thyroid enlargement Resp normal respiratory effort, no retractions, no use of accessory muscles and clear to auscultation bilaterally Auscultation: Negative for crackles, rales, rhonchi or wheezes Cardio regular rate, regular rhythm, S1 normal heart sound, S2 normal heart sound, no rub, no gallops and no JVD; Negative for no murmurs or no clicks Cardio Narrative: 2 out of 6 systolic murmur, click present GI normal to inspection, nondistended, normoactive bowel sounds, soft to palpation, non-tender and non-distended; Negative for hepatosplenomegaly Extremity Negative for normal to inspection Extremity Narrative: Right knee joint effusion noted, tender, no discoloration, limited range of motion, no cyanosis clubbing or edema Skin no rashes or lesions noted, no wounds, skin turgor normal, no jaundice, no pet echiae and no mottling Neuro oriented x3, CN's II-XII intact bilaterally and no focal motor deficits Neuro Narrative: Limited movement right lower extremity secondary to knee immobilizer in place however movement is otherwise within normal limits Sensorium / Orientation: awake, alert, oriented to person, oriented to place and oriented to time Speech: speech normal Psych affect normal Mood & Affect: anxious Results Lab / Micro Data Attestation: I reviewed the patient's lab results. Result Diagrams: 12/18/21 13:30 12/18/21 13:30 Labs: Laboratory Results - last 24 hr 12/18/21 13:30: WBC 7.2, RBC 4.83, Hgb 15.2, Hct 44.7, MCV 92.5, MCH 31.5, MCHC 34.0, RDW Std Deviation 41.9, RDW Coeff of Fide 12.2, Plt Count 129 L, MPV 11.5, Immature Gran % (Auto) 0.300, Neut % (Auto) 67.5, Lymph % (Auto) 20.0, [place] % (Auto) 10.6 H, Eos % (Auto) 1.3, Baso % (Auto) 0.3, Absolute Neuts (auto) 4.8, Absolute Lymphs (auto) 1.43, Nucleated RBC % 0 12/18/21 13:30: PT 91.3 H, INR 11.8 H* 12/18/21 13:30: Sodium 141, Potassium 4.2, Chloride 109 H, Carbon Dioxide 29.0, Anion Gap 3 L, BUN 14, Creatinine 0.93, Estim Creat Clear Calc 64.41, Est GFR (MDRD) Af Amer 101, Est GFR (MDRD) Non-Af 84, BUN/Creatinine Ratio 15.1, Glucose 94, Calcium 8.8 Radiology Impression Knee X-Ray 12/18/21 13:40 IMPRESSION: Degenerative bone changes, suprapatellar effusion, 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 Vascular calcifications. Cannot rule out underlying fracture would recommend further evaluation with CT scan or MRI. Electronically Signed: Julián Scott MD at 14:03 EDT , Lower Extremity CT 12/18/21 14:13 IMPRESSION: Extensive degenerative changes visualized with suggestion of bony contusion distal femur but no evidence of displaced fracture is seen. 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 Suprapatellar effusion suggestive of hemarthrosis. Fluid along the posterior aspect of the medial femoral condyle. Electronically Signed: Julián Scott MD at 15:05 EDT , Assessment & Plan Assessment/Plan (1) Hemarthrosis of knee, right: (2) Warfarin-induced coagulopathy: PLAN: Plan Right knee hemarthrosis -Sounds as if it was spontaneous -INR supratherapeutic -Vitamin K given emergency department -Hold Coumadin -Check serial H&H's and if there is a marked decline in his hemoglobin would recommend FFP versus PCC -Knee immobilizer in place -As needed medication for pain -Patient nonweightbearing until he is evaluated by orthopedic surgery -Orthopedic surgery consultation Warfarin induced coagulopathy -INR on admission is 11.8 -Patient on Coumadin for mechanical aortic valve -Goal INR is 2.5-3.5 per discussion with patient -Monitor serial hemoglobins -Repeat INR in a.m. -Vitamin K given since patient has spontaneous hemarthrosis Mechanical aortic valve -Initial valve in the with repeat valve in the -INR goal 2.5-3.5 per discussion with patient -No current issues Seizure disorder -Continue Keppra -Continue phenytoin -Stable Osteoporosis -Continue alendronate at discharge -Continue calcium and 8 Vitamin D deficiency -Continue ergocalciferol upon discharge Hyperlipidemia -Continue rosuvastatin BPH -Continue flow -Continue Proscar Alzheimer's type dementia -Continue donepezil DVT prophylaxis -Patient is fully anticoagulated and supratherapeutic on INR CODE STATUS -DNR CCA with no intubation as per discussion with the patient and his in the emergency department prior to admission Charges/Coding Visit Charges Inpatient E&M: 92977 Init Hosp L3
[2021-12-18 18:57] LABS: Hemoglobin 15.5 g/dL (13.0-16.5)
[2021-12-18 20:45] VITALS: BP 120/72; PULSE 62; RESP 16; TEMP 36.6; O2SAT 99
[2021-12-18] MEDS: Atorvastatin Calcium 10 MG Tablet PO (21:12)
[2021-12-18] MEDS: levETIRAcetam 750 MG Tablet 1500 MG PO (21:12)
[2021-12-18] MEDS: 0.9% Saline Lock 10 ML Syringe IV (21:12)
[2021-12-18] MEDS: Acetaminophen 325 MG Tablet 650 MG PO (23:00)
[2021-12-18] MEDS: oxyCODONE 5 MG Tablet PO (23:01)
[2021-12-18 23:36] LABS: Hemoglobin 15.3 g/dL (13.0-16.5)
[2021-12-19 02:40] VITALS: BP 150/81; PULSE 69; RESP 16; TEMP 36.6; O2SAT 96
[2021-12-19] MEDS: oxyCODONE 5 MG Tablet PO (06:24)
[2021-12-19] MEDS: Acetaminophen 325 MG Tablet 650 MG PO ×2 (06:25→23:11)
--- NOTE | 2021-12-19 06:58 | PCM.PN.HOSP ---
Subjective Subjective Still with right knee pain. Denies any trauma that preceded the hemarthrosis. Objective Data Objective Data Vital Signs: Vital Signs Temp Pulse Resp BP Pulse Ox O2 Del Method 36.6 C 69 16 150/81 H 96 Room Air 12/19/21 02:40 12/19/21 02:40 12/19/21 02:40 12/19/21 02:40 12/19/21 02:40 12/19/21 02:40 Oxygen Delivery Method Room Air Weight: 65.2 kg Body Mass Index (BMI) 21.2 Intake & Output: Intake and Output for Last 24 Hours 12/17/21 12/18/21 12/19/21 23:59 23:59 23:59 Output Total 900 / 900 Balance -900 / -900 Lab / Micro Data Result Diagrams: 12/19/21 06:15 12/19/21 06:15 Labs: Laboratory Results - last 24 hr 12/18/21 13:30: WBC 7.2, RBC 4.83, Hgb 15.2, Hct 44.7, MCV 92.5, MCH 31.5, MCHC 34.0, RDW Std Deviation 41.9, RDW Coeff of Fide 12.2, Plt Count 129 L, MPV 11.5, Immature Gran % (Auto) 0.300, Neut % (Auto) 67.5, Lymph % (Auto) 20.0, Cata[place] % (Auto) 10.6 H, Eos % (Auto) 1.3, Baso % (Auto) 0.3, Absolute Neuts (auto) 4.8, Absolute Lymphs (auto) 1.43, Nucleated RBC % 0 12/18/21 13:30: PT 91.3 H, INR 11.8 H* 12/18/21 13:30: Sodium 141, Potassium 4.2, Chloride 109 H, Carbon Dioxide 29.0, Anion Gap 3 L, BUN 14, Creatinine 0.93, Estim Creat Clear Calc 64.41, Est GFR (MDRD) Af Amer 101, Est GFR (MDRD) Non-Af 84, BUN/Creatinine Ratio 15.1, Glucose 94, Calcium 8.8 12/18/21 18:40: Hgb 15.5 12/18/21 23:25: Hgb 15.3 Radiography Diagnostic Testing: Radiology Impression Knee X-Ray 12/18/21 13:40 IMPRESSION: Degenerative bone changes, suprapatellar effusion, 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 Vascular calcifications. Cannot rule out underlying fracture would recommend further evaluation with CT scan or MRI. Electronically Signed: Julián Scott MD at 14:03 EDT , Lower Extremity CT 12/18/21 14:13 IMPRESSION: Extensive degenerative changes visualized with suggestion of bony contusion distal femur but no evidence of displaced fracture is seen. 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 Suprapatellar effusion suggestive of hemarthrosis. Fluid along the posterior aspect of the medial femoral condyle. Electronically Signed: Julián Scott MD at 15:05 EDT , Physical Exam Const alert and oriented x3 Resp normal respiratory effort and no retractions Cardio regular rate, regular rhythm, S1 normal heart sound and S2 normal heart sound Extremity Extremity Narrative: right knee effusion with TTP. Psych affect normal Assessment & Plan Assessment/Plan (1) Hemarthrosis of knee, right: PLAN: Right knee hemarthrosis -Sounds as if it was spontaneous -INR supratherapeutic -Vitamin K given emergency department -Hold Coumadin -Hg stable -Knee immobilizer in place -As needed medication for pain -Patient nonweightbearing until he is evaluated by orthopedic surgery -Orthopedic surgery consultation (2) Warfarin-induced coagulopathy: PLAN: -INR on admission is 11.8. -Patient on Coumadin for mechanical aortic valve -Goal INR is 2.5-3.5 per discussion with patient -Monitor serial hemoglobins -Repeat INR in a.m. -Vitamin K given since patient has spontaneous hemarthrosis INR 8.3, administered another 5mg vitamin K. Recheck INR today. (3) History of mechanical aortic valve replacement: PLAN: -Initial valve in the with repeat valve in the -INR goal 2.5-3.5 Resume after arthrocentesis and when ok with othopaedics. Likely will require bridging after arthrocentesis PLAN: Plan Seizure disorder -Continue Keppra -Continue phenytoin -Stable Osteoporosis -Continue alendronate at discharge -Continue calcium and 8 Vitamin D deficiency -Continue ergocalciferol upon discharge Hyperlipidemia -Continue rosuvastatin BPH -Continue Proscar Alzheimer's type dementia -Continue donepezil DVT prophylaxis -Patient is fully anticoagulated and supratherapeutic on INR CODE STATUS -DNR CCA with no intubation as per discussion with the patient and his in the emergency department prior to admission Charges/Coding Visit Charges Inpatient E&M: 18134 Subs Hosp L2
[2021-12-19 06:59] LABS: Absolute Lymphocyte Count 1.01 X10^3/uL (0.83-4.51); Absolute Neutrophil Count 7.2 X10^3/uL (2.0-7.7); Basophil# 0.02 X10^3/uL; Basophil% 0.2 % (0-1); Eosinophil# 0.03 X10^3/uL; Eosinophils% 0.3 % (0-5); Hematocrit 45.9 % (40-54); Hemoglobin 15.4 g/dL (13.0-16.5); Lymphocyte # 1.01 X10^3/ul (0.83-4.51); Lymphocyte % 10.4 % (19-41); Mean Corp Hgb Conc 33.6 g/dL (32-36); Mean Corpuscular Hgb 30.9 pg (27.0-32.0); Mean Platelet Vol. 12.4 fl (6.2-12.0); Monocyte# 1.36 X10^3/uL; NRBC Flagged by Analyzer 0 % (0-5); Neutrophil % 74.5 % (47-70); Platelet Count 144 K/mm3 (150-450); RBC Distribution Width CV 12.2 % (11.6-14.6); RBC Distribution Width SD 41.2 fl (35.1-43.9); Red Blood Count 4.99 M/mm3 (4.6-6.2); White Blood Count 9.7 K/mm3 (4.4-11.0)
[2021-12-19 07:21] LABS: AST(SGOT) 29 U/L (15-37); Alanine Aminotransfer ALT/SGPT 23 U/L (16-61); Albumin, Serum 3.5 g/dL (3.2-5.0); Alkaline Phosphatase 124 U/L (45-117); Anion Gap 6 (5-15); BUN 19 mg/dL (7-18); BUN/Creat Ratio 19.4 RATIO (10-20); Calcium,Total 8.6 mg/dL (8.5-10.1); Chloride 107 mmol/L (98-107); Creatinine, Serum 0.98 mg/dL (0.70-1.30); EST Glomerular Filtration Rate 78 mL/min (>60); Est Glom Filt Rate - Afr Amer 95 mL/min (>60); Estimated Creatinine Clearance 56.37 ml/min; Globulin 3.6 g/dL (2.2-4.2); Glucose 108 mg/dL (74-106); Magnesium 2.1 mg/dL (1.6-2.6); Phosphorus 2.4 mg/dL (2.5-4.9); Potassium 3.8 mmol/L (3.5-5.1); Protein, Total 7.1 g/dL (6.4-8.2); Sodium Level 139 mmol/L (136-145)
[2021-12-19 07:22] VITALS: O2SAT 96
[2021-12-19 08:16] LABS: International Normalized Ratio 8.3; Prothrombin Time (Protime)PT. 68.9 SECONDS (11.7-14.9)
[2021-12-19] MEDS: Tamsulosin HCl 0.4 MG Capsule PO ×2 (08:42→16:38)
[2021-12-19] MEDS: Multivitamins,Ther W-Minerals Tablet 1 TABLET PO (08:42)
[2021-12-19] MEDS: Calcium (Elemental) 500 MG Tablet PO ×2 (08:42→16:38)
[2021-12-19] MEDS: Phenytoin Na 100 MG Capsule PO ×2 (08:42→16:38)
[2021-12-19] MEDS: Donepezil HCl 10 MG Tablet PO (08:43)
[2021-12-19] MEDS: Finasteride 5 MG Tablet PO (08:43)
[2021-12-19] MEDS: levETIRAcetam 1,000 MG Tablet 1000 MG PO (08:43)
[2021-12-19 08:57] VITALS: BP 114/78; PULSE 80; RESP 17; TEMP 36.4; O2SAT 98
[2021-12-19] MEDS: Phytonadione (Vit K1) 5 MG TABLET PO ×2 (09:02→14:45)
--- NOTE | 2021-12-19 09:55 | CASEMGMT ---
Addendum entered by Matt Lindsay 12/19/21 15:57: Lilliam @ [facility] made aware plan is for pt to go to SNF @ discharge. Addendum entered by Matt Lindsay 12/19/21 15:51: Pt has been evaluated by therapy and SNF is recommended. FELECIA CLEANING to room to talk w/pt and , who is now at bedside. They are both agreeable to pt going to SNF. Pt and provided with list of SNF providers including quality and resource use data and consistent with the patient's preferred geographic region, medical needs, and insurance network. The pt and 's preferred provider is [facility]. asks for their son-in-law and dtr also be notified. Mary RAMIREZ, made aware of above. Original Note: RN CM SOAPING DEPARTMENT SUPERVISOR CM to room to meet with patient for initial transition planning/care coordination assessment. RN HERMILA introduced self and role at [facility].? Pt voices understanding and consents to assessment at this time.? Pt resting in bed in no distress at this time.? Pt does have history of Alzheimer's demenita, but is A/O at this time and able to answer most questions. Care providers, pharmacy, and demographics verified/updated at this time. PCP: Dr Flores Specialists: Dr Zimmer--cardiology, Dr Andrews-urology. Pt states he started seeing a new neurologist, but unable to remember their name. FELECIA CLEANING spoke w/pt's , who states it is Dr Mcgrath Preferred Pharmacy: [facility] [place] Insurance: [employer] Prescription Benefit:? Yes Living Will/HPOA:? Has both LW and HPOA, who is his , Noni, and son-in-law, Dr Mat Calabrese LNOK: , Noni. Dtr, Yesenia Mcdermottton. Son-in-law, Dr Mat Calabrese. Living Arrangements: Lives w/ @ [facility]. states she also has been diagnosed w/dementia. Home is handicap accessible, one level, no steps to enter. assists pt w/bathing 2 x's/week. Yesenia does med mgmt. They hire a cleaning lady, Ariella, weekly who also assists w/grocery shopping. Transportation: /family DME: ?States has the following DME:? shower chair, RTS, grab bars, walker, W/C, electric scooter, medical alert button, knee immobilizer. Per note, dtr inquired last PM about BSC and hospital bed. See Evelin Viera/ASHLEY note. HHC/SNF: Hx of going to [facility]. Active w/[facility] HHC: SN. Call placed to Lilli[facility] [place] and VM left informing her of admission. Pt states a personalized living manager nurse (private pay) comes to his home Mondays and Wednesdays and does a virtual visit on Fridays. PLAN: ?TBD by course of treatment and progress w/therapy. Sabine PEARSON RN CM
[2021-12-19 12:37] LABS: International Normalized Ratio 7.4; Prothrombin Time (Protime)PT. 62.9 SECONDS (11.7-14.9)
--- NOTE | 2021-12-19 13:27 | PCM.CONS.GEN ---
Assessment & Plan Assessment/Plan (1) Hemarthrosis of knee, right: (2) Warfarin-induced coagulopathy: PLAN: Plan Patient likely had spontaneous hemarthrosis right knee with supratherapeutic INR above 11. I did have thorough discussion with the patient and I did speak with his son-in-law which is his power of healthcare attorney law clerk. We did discuss options including aspiration of the knee and risk benefits of this considering this is over 48 hours old there is a possibility that the blood is already coagulated there is risk of introducing infection into a blood-filled joint by doing so. There is also risk of recurrence or worsening of bleeding as he still has an elevated INR of 7.4. Therefore we all discussed and agreed to proceed with compression wrapping of the right knee with an Jhon wrap as well as Polar Care to the right knee upon discharge she should continue icing and encouraging knee range of motion discontinue knee immobilizer unless needed for ambulation safely encouraged inpatient and outpatient physical therapy weightbearing as tolerated. Patient may require transitional care before returning home. His INR is being managed by his admitting physician to get him into a more therapeutic range. HPI Consult Data Date of Consult: 12/19/21 HPI Narrative HPI Narrative: ROBINA MCCAULEY, is a 81 M who has been working out regularly with a national sales trainer 3 times a week who noted to have increased right knee swelling starting 12/17/2021. He denies any injury to the knee but he did present to the emergency room with a supratherapeutic INR of 11.8 down to 7.4 now. He did have a x-ray and CT scan of the knee which did demonstrate extensive arthritic change and calcium pyrophosphate disease but no evidence of a fracture there was joint effusion consistent with hemarthrosis. He has had no fevers or chills and has been afebrile since admission he has no elevated white blood cell count he has no concern for infection anywhere. [facility] Medical History Alzheimer disease Aortic root dilatation Bladder disease Cardiology follow-up encounter Depression Diastolic dysfunction Dietary restriction Fall Herniated lumbar disc without myelopathy Herniated lumbar disc without myelopathy History of echocardiogram History of endocarditis History of rheumatic fever History of stroke Hx of transesophageal echocardiography (EUGENIE) for monitoring Hyperlipidemia Indwelling urethral catheter present Injury of back continuous churn buttermaker (current) use of anticoagulants Muscle spasms of neck Non-smoker Osteoarthritis of right knee Prostate disease Pseudogout Seizure disorder Seizure disorder Thoracic aortic aneurysm Urinary retention Uses wheelchair Walker as ambulation aid Wears glasses Wears partial dentures Home Medications calcium carbonate 600 mg calcium (1,500 mg) tablet 600 mg PO BID supplement 05/23/17 [History Last Taken 12/18/21] swfrfrsu-eur-vhgdg acid 0.4 mg-lycopene 300 mcg-lutein 250 mcg tablet (Centrum Silver) 1 tab PO QDAY supplement 05/23/17 [History Last Taken 12/17/21] alendronate 70 mg tablet 70 mg PO FERNANDEZ bone health 28 days ##4 08/05/17 [History Last Taken 12/16/21] rosuvastatin 5 mg tablet 5 mg PO QHS cholesterol 90 days ##90 08/05/17 [History Last Taken 12/17/21] tamsulosin 0.4 mg capsule (Flomax) 0.4 mg PO QHS urinary retension 08/05/17 [History Last Taken 12/17/21] cyanocobalamin (vitamin B-12) 500 mcg tablet 1,000 mcg PO QWEEK supplement 12/10/17 [History Last Taken 12/16/21 09:00] ergocalciferol (vitamin D2) 1,250 mcg (50,000 unit) capsule 50,000 unit PO Q2W supplement 02/16/20 [History Last Taken Unknown] warfarin 1 mg tablet 7.5 mg PO SUWESA blood thinner 10/19/21 [History Last Taken 12/16/21] warfarin 5 mg tablet 5 mg PO MOTUTHFR 10/19/21 [History Last Taken Unknown] levetiracetam 1,000 mg tablet 1,000 mg PO QAM seizure #90 tabs 10/23/21 [Rx Last Taken 12/18/21] donepezil 10 mg tablet 10 mg PO DAILY alzheimers 12/18/21 [History Last Taken 12/17/21] finasteride 5 mg tablet 5 mg PO DAILY prostate 12/18/21 [History Last Taken 12/17/21] levetiracetam 750 mg tablet 1,500 mg PO QHS seizures 12/18/21 [History Last Taken 12/17/21] phenytoin sodium extended 100 mg capsule 100 mg PO BID seizures 12/18/21 [History Last Taken 12/18/21] Allergy/AdvReac Type Severity Reaction Status Date / Time No Known Allergies Allergy Verified 12/18/21 12:46 Family History Father Cancer Lung cancer Mother Old age Surgical History H/O aortic valve replacement History of back surgery (~1990) History of mechanical aortic valve replacement Social History household members: spouse Smoking Status: Never smoker alcohol intake: never substance use type: does not use diet: other caffeine: No what type of physical activity do you participate in: weight training frequency: 3-4 times per week duration: 45-60 minutes/day seatbelt use: always do you feel safe at home: Yes Physical Exam Narrative Right knee has joint effusion. There is no erythema. He has intact quadriceps and patellar tendon his compartments are soft and his thigh and calf is neurovascular intact right lower extremity. The joint effusion feels like it may have already coagulated. Lab / Micro Data Result Diagrams: 12/19/21 06:15 12/19/21 06:15 Labs: Laboratory Results - last 24 hr 12/18/21 13:30: WBC 7.2, RBC 4.83, Hgb 15.2, Hct 44.7, MCV 92.5, MCH 31.5, MCHC 34.0, RDW Std Deviation 41.9, RDW Coeff of Fide 12.2, Plt Count 129 L, MPV 11.5, Immature Gran % (Auto) 0.300, Neut % (Auto) 67.5, Lymph % (Auto) 20.0, Alfalfa % (Auto) 10.6 H, Eos % (Auto) 1.3, Baso % (Auto) 0.3, Absolute Neuts (auto) 4.8, Absolute Lymphs (auto) 1.43, Nucleated RBC % 0 12/18/21 13:30: PT 91.3 H, INR 11.8 H* 12/18/21 13:30: Sodium 141, Potassium 4.2, Chloride 109 H, Carbon Dioxide 29.0, Anion Gap 3 L, BUN 14, Creatinine 0.93, Estim Creat Clear Calc 64.41, Est GFR (MDRD) Af Amer 101, Est GFR (MDRD) Non-Af 84, BUN/Creatinine Ratio 15.1, Glucose 94, Calcium 8.8 12/18/21 18:40: Hgb 15.5 12/18/21 23:25: Hgb 15.3 12/19/21 06:15: PT 68.9 H, INR 8.3 H* 12/19/21 06:15: WBC 9.7, RBC 4.99, Hgb 15.4, Hct 45.9, MCV 92.0, MCH 30.9, MCHC 33.6, RDW Std Deviation 41.2, RDW Coeff of Fide 12.2, Plt Count 144 L, MPV 12.4 H, Immature Gran % (Auto) 0.600, Neut % (Auto) 74.5 H, Lymph % (Auto) 10.4 L, Alfalfa % (Auto) 14.0 H, Eos % (Auto) 0.3, Baso % (Auto) 0.2, Absolute Neuts (auto) 7.2, Absolute Lymphs (auto) 1.01, Nucleated RBC % 0 12/19/21 06:15: Sodium 139, Potassium 3.8, Chloride 107, Carbon Dioxide 26.0, Anion Gap 6, BUN 19 H, Creatinine 0.98, Estim Creat Clear Calc 56.37, Est GFR (MDRD) Af Amer 95, Est GFR (MDRD) Non-Af 78, BUN/Creatinine Ratio 19.4, Glucose 108 H, Calcium 8.6, Phosphorus 2.4 L, Magnesium 2.1, Total Bilirubin 0.70, AST 29, ALT 23, Alkaline Phosphatase 124 H, Total Protein 7.1, Albumin 3.5, Globulin 3.6, Albumin/Globulin Ratio 1.0 12/19/21 12:08: PT 62.9 H, INR 7.4 H* Radiology Impression Knee X-Ray 12/18/21 13:40 IMPRESSION: Degenerative bone changes, suprapatellar effusion, 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 Vascular calcifications. Cannot rule out underlying fracture would recommend further evaluation with CT scan or MRI. Electronically Signed: Julián Scott MD at 14:03 EDT , Lower Extremity CT 12/18/21 14:13 IMPRESSION: Extensive degenerative changes visualized with suggestion of bony contusion distal femur but no evidence of displaced fracture is seen. 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 Suprapatellar effusion suggestive of hemarthrosis. Fluid along the posterior aspect of the medial femoral condyle. Electronically Signed: Julián Scott MD at 15:05 EDT ,
--- NOTE | 2021-12-19 13:57 | CASEMGMT ---
Social Work SW in to speak with pt regarding Advanced Directives. Pt confirms he has HCPOA/LW documents and named his Son-in-Law, Mykel Calabrese. Pt shared Mykel would have copies and gave his permission for this SW to call and ask Mykel if he can bring copies in to be scanned. SW called Mykel who confirmed he has copies but is unable to bring the documents at this time as he is out of state. Mykel's and pt's daughter was also on the [place] with him and she reported her mother, who is pt's , has copies of the documents at [place] and she will ask her to bring them in when she visits with pt next. CR Steele
[2021-12-19 15:36] VITALS: BP 114/72; PULSE 88; RESP 20; TEMP 37; O2SAT 100
--- NOTE | 2021-12-19 16:15 | CASEMGMT ---
Social Work SW in to meet with pt and his . SW shared [facility]CU is unable to take pt at this time and asked pt and his for a second choice. Pt and his chose [facility]. SW inquired about HCPOA/LW papers. Pt's shared she provided them to the nurse. SW confirmed copies had been placed on pt's chart. SW sent referral to Gillian at [facility]. SW called pt's BRII and daughter to update them on pt need for rehab and choice to go to [facility]. They were appreciative. Plan: [facility], pending acceptance and precert CR Steele
[2021-12-19 21:35] VITALS: BP 113/72; PULSE 109; RESP 14; TEMP 38; O2SAT 94
[2021-12-19] MEDS: Atorvastatin Calcium 10 MG Tablet PO (22:36)
[2021-12-19] MEDS: levETIRAcetam 750 MG Tablet 1500 MG PO (22:36)
[2021-12-20 03:30] VITALS: BP 144/74; PULSE 87; RESP 16; TEMP 36.4; O2SAT 98
[2021-12-20 07:19] VITALS: O2SAT 96
--- NOTE | 2021-12-20 07:22 | PN.HOSP_ITS ---
Subjective Subjective Feels well. Still with right knee pain. Objective Data Objective Data Vital Signs: Vital Signs Temp Pulse Resp BP Pulse Ox O2 Del Method O2 Flow Rate 36.4 C L 87 16 144/74 H 98 Room Air 2 12/20/21 03:30 12/20/21 03:30 12/20/21 03:30 12/20/21 03:30 12/20/21 03:30 12/20/21 03:30 12/20/21 02:00 Oxygen Flow Rate (L/min) 2 Oxygen Delivery Method Room Air Weight: 65.2 kg Body Mass Index (BMI) 21.2 Intake & Output: Intake and Output for Last 24 Hours 12/18/21 12/19/21 12/20/21 23:59 23:59 23:59 Intake Total 900 / 900 Output Total 1300 / 1550 450 / 450 Balance -400 / -650 -450 / -450 Lab / Micro Data Result Diagrams: 12/19/21 06:15 12/19/21 06:15 Labs: Laboratory Results - last 24 hr 12/19/21 06:15: PT 68.9 H, INR 8.3 H* 12/19/21 12:08: PT 62.9 H, INR 7.4 H* Physical Exam Const alert and no apparent distress Resp normal respiratory effort, no retractions, no use of accessory muscles and clear to auscultation bilaterally Cardio Cardio Narrative: aortic click Extremity Extremity Narrative: right knee wrapped--did not remove. Assessment & Plan Assessment/Plan (1) Hemarthrosis of knee, right: PLAN: Right knee hemarthrosis -Sounds as if it was spontaneous -INR supratherapeutic -Vitamin K given emergency department -Hold Coumadin -Hg stable -Knee immobilizer in place -As needed medication for pain -Discussed with Dr. Carreon, given time the injury and that the blood is likely congealed in his knee and a arthrocentesis would be of low yield. Recommended conservative measures. He is okay with patient resuming anticoagulation. (2) Warfarin-induced coagulopathy: PLAN: -Resolved with vitamin K INR on admission is 11.8. -Patient on Coumadin for mechanical aortic valve -Goal INR is 2.5-3.5 per discussion with patient -Monitor serial hemoglobins -Repeat INR in a.m. -Vitamin K given since patient has spontaneous hemarthrosis (3) History of mechanical aortic valve replacement: PLAN: -Initial valve in the with repeat valve in the -INR goal 2.5-3.5 -No arthrocentesis planned. Plan is to reinitiate anticoagulation with a lower dose of warfarin as well as weight-based enoxaparin. PLAN: Plan Seizure disorder -Continue Keppra -Continue phenytoin -Stable Osteoporosis -Continue alendronate at discharge -Continue calcium and 8 Vitamin D deficiency -Continue ergocalciferol upon discharge Hyperlipidemia -Continue rosuvastatin BPH -Continue Proscar Alzheimer's type dementia -Continue donepezil DVT prophylaxis -Patient is fully anticoagulated and supratherapeutic on INR CODE STATUS -DNR CCA with no intubation as per discussion with the patient and his in the emergency department prior to admission Disposition is to [facility]
[2021-12-20 08:18] LABS: International Normalized Ratio 1.6; Prothrombin Time (Protime)PT. 18.2 SECONDS (11.7-14.9)
[2021-12-20 08:48] VITALS: BP 131/70; PULSE 80; RESP 17; TEMP 37.1; O2SAT 97
--- NOTE | 2021-12-20 08:49 | CASEMGMT ---
Social work SW faxed PT/OT notes to Gillian at [facility] to accompany pt's referral. Plan: [facility], pending acceptance and precert CR Steele
[2021-12-20] MEDS: Phenytoin Na 100 MG Capsule PO ×2 (09:01→16:21)
[2021-12-20] MEDS: Donepezil HCl 10 MG Tablet PO (09:01)
[2021-12-20] MEDS: Finasteride 5 MG Tablet PO (09:01)
[2021-12-20] MEDS: Calcium (Elemental) 500 MG Tablet PO ×2 (09:01→16:21)
[2021-12-20] MEDS: Multivitamins,Ther W-Minerals Tablet 1 TABLET PO (09:01)
[2021-12-20] MEDS: levETIRAcetam 1,000 MG Tablet 1000 MG PO (09:01)
[2021-12-20] MEDS: Tamsulosin HCl 0.4 MG Capsule PO ×2 (09:01→16:21)
--- NOTE | 2021-12-20 10:28 | CASEMGMT ---
Discharge Resaw Operator Gillian called from [facility]. Team is looking at referral currently. Will follow up Plan: [facility], Waiting Acceptance. Karen Valencia Discharge Resaw Operator
--- NOTE | 2021-12-20 11:23 | CASEMGMT ---
Discharge Sausage Linker Gillian from [facility] called. Patient has been accepted. ASHLEY Hernandez notified. Plan: [facility]. Karen Valencia Discharge Sausage Linker
--- NOTE | 2021-12-20 13:44 | CASEMGMT ---
Social Work SW notified that pt has been accepted at [facility] and can go when he is medically ready. SW in to speak with pt and notified him that he has been accepted to [facility]. Pt expressed happiness and requested this SW call to update his family. SW shared intent to do so and reminded pt he will not leave until the DrJose Roberto feels he is medically ready. Pt voiced understanding. SW called pt's BRII, Mykel Calabrese to inform him of the acceptance at [facility] and that pt will discharge to this SNF when medically ready. Mykel expressed gratitude for the great care he feels his YURIY has been receiving at [facility] and shared with this SW that he will update pt's , Noni with this news. Plan: [facility], when medically ready CR Steele
--- NOTE | 2021-12-20 14:09 | TREXTCAR_ITS ---
Diet Diet Order/Speech Therapy: 12/18/21 18:33 Diet: Cardiac - Heart Healthy Food consistency:: Regular Liquid Consistency:: Regular/Thin Is pt able to select menu?: Yes Routine Orders/Code Status Routine Lab Work: CBC (Mondays) and INR (Wednesdays) Wound(s) LT knee: Wound Type: blister Therapies Weight Bearing: Weight bearing as tolerated Extremity Affected:: Right Lower Physical Therapy: Eval and Treat Occupational Therapy: Eval and Treat Problem/Diagnosis (1) Hemarthrosis of knee, right: Status: Acute Code(s): M25.061 - Hemarthrosis, right knee Plan: Right knee hemarthrosis -Sounds as if it was spontaneous -INR supratherapeutic -Vitamin K given emergency department -Hold Coumadin -Hg stable -Knee immobilizer in place -As needed medication for pain -Discussed with Dr. Carreon, given time the injury and that the blood is likely congealed in his knee and a arthrocentesis would be of low yield. Recommended conservative measures. He is okay with patient resuming anticoagulation. (2) Warfarin-induced coagulopathy: Status: Acute Code(s): D68.32 - Hemorrhagic disorder due to extrinsic circulating anticoagulants; T45.515A - Adverse effect of anticoagulants, initial encounter Plan: -Resolved with vitamin K INR on admission is 11.8. -Patient on Coumadin for mechanical aortic valve -Goal INR is 2.5-3.5 per discussion with patient -Monitor serial hemoglobins -Repeat INR in a.m. -Vitamin K given since patient has spontaneous hemarthrosis (3) History of mechanical aortic valve replacement: Status: Chronic Code(s): Z98.890 - Other specified postprocedural states; Z95.2 - Presence of prosthetic heart valve Plan: -Initial valve in the with repeat valve in the -INR goal 2.5-3.5 -No arthrocentesis planned. Plan is to reinitiate anticoagulation with a lower dose of warfarin as well as weight-based enoxaparin. Comment: 1980; Revision AVR 1991 Plan Seizure disorder -Continue Keppra -Continue phenytoin -Stable Osteoporosis -Continue alendronate at discharge -Continue calcium and 8 Vitamin D deficiency -Continue ergocalciferol upon discharge Hyperlipidemia -Continue rosuvastatin BPH -Continue Proscar Alzheimer's type dementia -Continue donepezil DVT prophylaxis -Patient is fully anticoagulated and supratherapeutic on INR CODE STATUS -DNR CCA with no intubation as per discussion with the patient and his in the emergency department prior to admission Disposition is to [facility] Allergies/Procedures Done in Hospital Allergies No Known Allergies Allergy (Verified 12/18/21 12:46) Procedures: None Type of Care/Length of Stay Estimated LOS: Convalescent Care Less Than 30 days Type of Care Needed: Skilled Rehab Potential: Fair Prognosis: Fair Additional Orders/Day of Discharge Day of Discharge: 12/20/21 Discharge Plan Admission Admit Date/Time: 12/18/21 17:06 Primary Reason for Your Visit: hemarthrosis. coagulapathy Attending Provider: Brad Holguin Primary Care Provider: Magdaleno Flores Consulting Providers: Dawit Ruiz ; Sunita Posada Discharge Orders/Prescriptions Prescriptions: New oxycodone 5 mg Tablet 5 mg PO Q6H PRN (Reason: pain) 3 Days Qty: 12 0RF acetaminophen [Tylenol] 325 mg Tablet 650 mg PO Q6H PRN PRN (Reason: Pain Score 1-10/Temp > 100.7 F) Qty: 0 0RF warfarin 2.5 mg tablet 2.5 mg PO DAILY Qty: 30 0RF enoxaparin 60 mg/0.6 mL syringe 60 mg subcut Q12H Qty: 6 0RF Rx Instructions: continue until INR greater than equal to 2.5 Continued cyanocobalamin (vitamin B-12) 500 mcg tablet 1,000 mcg PO QWEEK Rx Instructions: takes every Friday qjtyteqr-jlk-XQ-lycopen-lutein [Centrum Silver] 0.4-300-250 mg-mcg-mcg tablet 1 tab PO QDAY calcium carbonate 600 mg calcium (1,500 mg) tablet 600 mg PO BID tamsulosin [Flomax] 0.4 mg capsule,extended release 24hr 0.4 mg PO QHS alendronate 70 mg tablet 70 mg PO FERNANDEZ 28 Days Qty: 4 Label Comments: rosuvastatin 5 mg tablet 5 mg PO QHS 90 Days Qty: 90 Label Comments: TAKE 1 TABLET BY MOUTH EVERY DAY ergocalciferol (vitamin D2) 1,250 mcg (50,000 unit) capsule 50,000 unit PO Q2W Rx Instructions: due 08/30 levetiracetam 1,000 mg tablet 1,000 mg PO QAM Qty: 90 1RF donepezil 10 mg tablet 10 mg PO DAILY Label Comments: TAKE 1 TABLET BY MOUTH EVERYDAY AT BEDTIME finasteride 5 mg tablet 5 mg PO DAILY Label Comments: TAKE 1 TABLET BY MOUTH EVERY DAY phenytoin sodium extended 100 mg capsule 100 mg PO BID levetiracetam 750 mg tablet 1,500 mg PO QHS Discontinued warfarin 1 mg tablet 7.5 mg PO Protocol: Dose Management Condition: Friday Dose/Route: 6 mg Instruction: 1 x 1 mg tablet, 1 x 5 mg tablet Condition: Friday Dose/Route: 6 mg Instruction: 1 x 1 mg tablet, 1 x 5 mg tablet Condition: Friday Dose/Route: 8 mg Instruction: 3 x 1 mg tablets, 1 x 5 mg tablet Condition: Friday Dose/Route: 6 mg Instruction: 1 x 1 mg tablet, 1 x 5 mg tablet Condition: Dose/Route: 8 mg Instruction: 3 x 1 mg tablets, 1 x 5 mg tablet Condition: Friday Dose/Route: 6 mg Instruction: 1 x 1 mg tablet, 1 x 5 mg tablet Condition: Friday Dose/Route: 6 mg Instruction: 1 x 1 mg tablet, 1 x 5 mg tablet Protocol Text: Adjustment Start Date: 12/06/21 INR Value: 3.1 INR Date: 12/06/21 Recheck Date: 12/20/21 warfarin 5 mg tablet 5 mg PO MOTUTHFR Protocol: Dose Management Condition: Friday Dose/Route: 6 mg Instruction: 1 x 1 mg tablet, 1 x 5 mg tablet Condition: Friday Dose/Route: 6 mg Instruction: 1 x 1 mg tablet, 1 x 5 mg tablet Condition: Friday Dose/Route: 8 mg Instruction: 3 x 1 mg tablets, 1 x 5 mg tablet Condition: Friday Dose/Route: 6 mg Instruction: 1 x 1 mg tablet, 1 x 5 mg tablet Condition: Dose/Route: 8 mg Instruction: 3 x 1 mg tablets, 1 x 5 mg tablet Condition: Friday Dose/Route: 6 mg Instruction: 1 x 1 mg tablet, 1 x 5 mg tablet Condition: Friday Dose/Route: 6 mg Instruction: 1 x 1 mg tablet, 1 x 5 mg tablet Protocol Text: Adjustment Start Date: 12/06/21 INR Value: 3.1 INR Date: 12/06/21 Recheck Date: 12/20/21 Referrals / Follow Up: Magdaleno Flores MD [Primary Care Provider] - Within 2 Weeks Disposition Disposition (needs filled in before D/C Order can be placed): [facility]
[2021-12-20 14:17] VITALS: BP 141/79; PULSE 85; RESP 18; TEMP 37.1; O2SAT 97
--- NOTE | 2021-12-20 14:18 | DS.PCM_ITS ---
Providers Date of Admission: 12/18/21 Primary Care Physician: Dr. Magdaleno Flores MD Consultations 12/18/21 18:33 Consult: Orthopedics Routine Consulting Provider: Dawit Ruiz Reason for Consult: R Knee Hemarthrosis EMERGENT Consult: No MD Notified: Yes Date Notified: 12/18/21 Time Notified: 17:10 Method of Notification: ED Physician Initiated Reason For Visit: HEMARTHOSIS S/P FAIL W/SUPRATERAPEUTIC INR Diagnosis Discharge Diagnosis (1) Hemarthrosis of knee, right: Status: Acute Code(s): M25.061 - Hemarthrosis, right knee Plan: Right knee hemarthrosis -Sounds as if it was spontaneous -INR supratherapeutic -Vitamin K given emergency department -Hold Coumadin -Hg stable -Knee immobilizer in place -As needed medication for pain -Discussed with Dr. Carreon, given time the injury and that the blood is likely congealed in his knee and a arthrocentesis would be of low yield. Recommended conservative measures. He is okay with patient resuming anticoagulation. (2) Warfarin-induced coagulopathy: Status: Acute Code(s): D68.32 - Hemorrhagic disorder due to extrinsic circulating anticoagulants; T45.515A - Adverse effect of anticoagulants, initial encounter Plan: -Resolved with vitamin K INR on admission is 11.8. -Patient on Coumadin for mechanical aortic valve -Goal INR is 2.5-3.5 per discussion with patient -Monitor serial hemoglobins -Repeat INR in a.m. -Vitamin K given since patient has spontaneous hemarthrosis (3) History of mechanical aortic valve replacement: Status: Chronic Code(s): Z98.890 - Other specified postprocedural states; Z95.2 - Presence of prosthetic heart valve Plan: -Initial valve in the with repeat valve in the -INR goal 2.5-3.5 -No arthrocentesis planned. Plan is to reinitiate anticoagulation with a lower dose of warfarin as well as weight-based enoxaparin. Plan Seizure disorder -Continue Keppra -Continue phenytoin -Stable Osteoporosis -Continue alendronate at discharge -Continue calcium and 8 Vitamin D deficiency -Continue ergocalciferol upon discharge Hyperlipidemia -Continue rosuvastatin BPH -Continue Proscar Alzheimer's type dementia -Continue donepezil DVT prophylaxis -Patient is fully anticoagulated and supratherapeutic on INR CODE STATUS -DNR CCA with no intubation as per discussion with the patient and his in [facility] emergency department prior to admission Disposition is to [facility] Medications at Discharge Home Medications calcium carbonate 600 mg calcium (1,500 mg) tablet 600 mg PO BID supplement 05/23/17 hphfuzfy-yyr-lutyr acid 0.4 mg-lycopene 300 mcg-lutein 250 mcg tablet (Centrum Silver) 1 tab PO QDAY supplement 05/23/17 alendronate 70 mg tablet 70 mg PO FERNANDEZ bone health 28 days ##4 08/05/17 rosuvastatin 5 mg tablet 5 mg PO QHS cholesterol 90 days ##90 08/05/17 tamsulosin 0.4 mg capsule (Flomax) 0.4 mg PO QHS urinary retension 08/05/17 cyanocobalamin (vitamin B-12) 500 mcg tablet 1,000 mcg PO QWEEK supplement 12/20 ergocalciferol (vitamin D2) 1,250 mcg (50,000 unit) capsule 50,000 unit PO Q2W supplement 02/16/20 levetiracetam 1,000 mg tablet 1,000 mg PO QAM seizure #90 tabs 10/23/21 donepezil 10 mg tablet 10 mg PO DAILY alzheimers 12/18/21 finasteride 5 mg tablet 5 mg PO DAILY prostate 12/18/21 levetiracetam 750 mg tablet 1,500 mg PO QHS seizures 12/18/21 phenytoin sodium extended 100 mg capsule 100 mg PO BID seizures 12/18/21 acetaminophen 325 mg tablet (Tylenol) 650 mg PO Q6H PRN PRN Pain Score 1-10/Temp > 100.7 F #0 tabs 12/20/21 enoxaparin 60 mg/0.6 mL subcutaneous syringe 60 mg (0.6 mL) subcut Q12H #6 mL 12/20/21 oxycodone 5 mg tablet 5 mg PO Q6H PRN pain 3 days #12 tabs 12/20/21 warfarin 2.5 mg tablet 2.5 mg PO DAILY #30 tabs 12/20/21 Weight / BMI Weight Weight: 65.2 kg Body Mass Index (BMI) 21.2 ABG / Lab / Microbiology Data Result Diagrams: 12/19/21 06:15 12/19/21 06:15 Laboratory: Laboratory Results - last 24 hr 12/20/21 07:49: PT 18.2 H, INR 1.6 D/C Instructions Discharge Diet: No restrictions Weight Bearing Status: Weight bearing as tolerated Keep extremity elevated above heart level: Right Leg Meaningful Use Info Meaningful Use Diagnoses (Choose all that apply): None applicable Discharge Plan Admission Admit Date/Time: 12/18/21 17:06 Primary Reason for Your Visit: hemarthrosis. coagulapathy Attending Provider: Brad Holguin Primary Care Provider: Magdaleno Flores Consulting Providers: Dawit Ruiz ; Sunita Posada Instructions Additional Instructions / Restrictions: TERESO wrap right knee. Ice right knee PRN. Discharge Orders/Prescriptions Prescriptions: New oxycodone 5 mg Tablet 5 mg PO Q6H PRN (Reason: pain) 3 Days Qty: 12 0RF acetaminophen [Tylenol] 325 mg Tablet 650 mg PO Q6H PRN PRN (Reason: Pain Score 1-10/Temp > 100.7 F) Qty: 0 0RF warfarin 2.5 mg tablet 2.5 mg PO DAILY Qty: 30 0RF enoxaparin 60 mg/0.6 mL syringe 60 mg subcut Q12H Qty: 6 0RF Rx Instructions: continue until INR greater than equal to 2.5 Continued cyanocobalamin (vitamin B-12) 500 mcg tablet 1,000 mcg PO QWEEK Rx Instructions: takes every Friday lmiwtdnb-hcz-OY-lycopen-lutein [Centrum Silver] 0.4-300-250 mg-mcg-mcg tablet 1 tab PO QDAY calcium carbonate 600 mg calcium (1,500 mg) tablet 600 mg PO BID tamsulosin [Flomax] 0.4 mg capsule,extended release 24hr 0.4 mg PO QHS alendronate 70 mg tablet 70 mg PO FERNANDEZ 28 Days Qty: 4 Label Comments: rosuvastatin 5 mg tablet 5 mg PO QHS 90 Days Qty: 90 Label Comments: TAKE 1 TABLET BY MOUTH EVERY DAY ergocalciferol (vitamin D2) 1,250 mcg (50,000 unit) capsule 50,000 unit PO Q2W Rx Instructions: due 08/30 levetiracetam 1,000 mg tablet 1,000 mg PO QAM Qty: 90 1RF donepezil 10 mg tablet 10 mg PO DAILY Label Comments: TAKE 1 TABLET BY MOUTH EVERYDAY AT BEDTIME finasteride 5 mg tablet 5 mg PO DAILY Label Comments: TAKE 1 TABLET BY MOUTH EVERY DAY phenytoin sodium extended 100 mg capsule 100 mg PO BID levetiracetam 750 mg tablet 1,500 mg PO QHS Discontinued warfarin 1 mg tablet 7.5 mg PO Protocol: Dose Management Condition: Friday Dose/Route: 6 mg Instruction: 1 x 1 mg tablet, 1 x 5 mg tablet Condition: Friday Dose/Route: 6 mg Instruction: 1 x 1 mg tablet, 1 x 5 mg tablet Condition: Friday Dose/Route: 8 mg Instruction: 3 x 1 mg tablets, 1 x 5 mg tablet Condition: Friday Dose/Route: 6 mg Instruction: 1 x 1 mg tablet, 1 x 5 mg tablet Condition: Dose/Route: 8 mg Instruction: 3 x 1 mg tablets, 1 x 5 mg tablet Condition: Friday Dose/Route: 6 mg Instruction: 1 x 1 mg tablet, 1 x 5 mg tablet Condition: Friday Dose/Route: 6 mg Instruction: 1 x 1 mg tablet, 1 x 5 mg tablet Protocol Text: Adjustment Start Date: 12/06/21 INR Value: 3.1 INR Date: 12/06/21 Recheck Date: 12/20/21 warfarin 5 mg tablet 5 mg PO [facility] Protocol: Dose Management Condition: Friday Dose/Route: 6 mg Instruction: 1 x 1 mg tablet, 1 x 5 mg tablet Condition: Friday Dose/Route: 6 mg Instruction: 1 x 1 mg tablet, 1 x 5 mg tablet Condition: Friday Dose/Route: 8 mg Instruction: 3 x 1 mg tablets, 1 x 5 mg tablet Condition: Friday Dose/Route: 6 mg Instruction: 1 x 1 mg tablet, 1 x 5 mg tablet Condition: Dose/Route: 8 mg Instruction: 3 x 1 mg tablets, 1 x 5 mg tablet Condition: Friday Dose/Route: 6 mg Instruction: 1 x 1 mg tablet, 1 x 5 mg tablet Condition: Friday Dose/Route: 6 mg Instruction: 1 x 1 mg tablet, 1 x 5 mg tablet Protocol Text: Adjustment Start Date: 12/06/21 INR Value: 3.1 INR Date: 12/06/21 Recheck Date: 12/20/21 Referrals / Follow Up: Magdaleno Flores MD [Primary Care Provider] - Within 2 Weeks Disposition Disposition (needs filled in before D/C Order can be placed): Detention Facility Charges/Coding Visit Charges Inpatient E&M: 35858 Disch Hosp
--- NOTE | 2021-12-20 15:27 | CASEMGMT ---
Social Work 6050 convalescent form completed in [facility] for SNF admission. CR Torres
--- NOTE | 2021-12-20 15:50 | CASEMGMT ---
Social Work? ?? SW in to notify pt he will be transported to [facility] today following his discharge from the hospital. Pt was also present and they both voiced understanding. SW?called pt's BRII, Mat Calabrese,?to update him on pt's discharge and transfer to [facility]. ASHLEY set up cot transportation with [facility] for 5:00pm. Called [facility] to report transport time and left a VM for Gillian. ASHLEY also called the facility and spoke to Malia, who shared intent to update the [facility] nurses and Gillian of pt's arrival time. Emailed orders to [facility] as they are currently not receiving our faxes and placed copies on pt's chart. ? ASHLEY Coppola completed 7000 convalescent form in [facility] system and placed report in file. Disposition: [facility] for skilled, convalescent level of care.? CR Steele?
--- NOTE | 2021-12-20 16:06 | CASEMGMT ---
Social Work SW faxed and emailed Negative Covid report to Gillian at [place]. CR Steele
--- NOTE | 2021-12-20 18:28 | NURSING ---
1758 report was given to JOHN
--- NOTE | 2021-12-20 19:42 | NURSING ---
[facility] arrived to transfer pt to [facility], going by car
== END 2021-12-20 19:50 | disposition skilled nursing facility (03) | DRG 554 ==
LOC: ED 16:45 → MS3 17:32
PROVIDERS: Admitting Provider Internal Medicine; Emergency Provider Emergency Medicine; PCP Family Medicine
DX: M25.061 Hemarthrosis, right knee (principal); D68.32 Hemorrhagic disorder due to extrinsic circulating anticoagulants; F02.80 Dementia in other diseases classified elsewhere, unspecified severity, without behavioral disturbance, psychotic disturbance, mood disturbance, and anxiety; G30.9 Alzheimer's disease, unspecified; G40.909 Epilepsy, unspecified, not intractable, without status epilepticus; E55.9 Vitamin D deficiency, unspecified; E78.5 Hyperlipidemia, unspecified; N40.0 Benign prostatic hyperplasia without lower urinary tract symptoms; T45.515A Adverse effect of anticoagulants, initial encounter; R53.81 Other malaise; M81.0 Age-related osteoporosis without current pathological fracture; Z79.83 Long term (current) use of bisphosphonates; Z79.01 Long term (current) use of anticoagulants; Z66 Do not resuscitate; Z95.2 Presence of prosthetic heart valve; Z79.899 Other long term (current) drug therapy
CPT/HCPCS: 36415; 73562; 73700; 80048; 80053; 83735; 84100; 85018; 85025; 85610; 87426; 97110; 97162; 97166; 97530; 97535; 99285; A4216

== ENCOUNTER → 2021-12-27 | Outpatient (REF) | payer MEDICARE, BC, SELFPAY ==
[2021-12-27 08:20] LABS: Color, Urine Yellow (Yellow); Glucose, Dipstick Normal (Normal); Ketone-Dipstick Negative (Negative); Leukocyte Esterase-Dipstick 500 /ul (Negative); Nitrite-Dipstick Positive (Negative); Occult Blood-Urine 250 /ul (Negative); Protein-Dipstick 100 mg/dl (Negative); Specific Gravity, Urine 1.015 (1.002-1.030); Urine Bilirubin Dipstick Negative (Negative); Urine Clarity Sl. Cloudy (Clear); Urine Urobilinogen Normal (Normal)
== END ==
LOC: OLS.WHLTCC 07:56
PROVIDERS: PCP Family Medicine; Visit Provider Family Medicine
DX: R33.9 Retention of urine, unspecified (principal); M25.061 Hemarthrosis, right knee; D68.8 Other specified coagulation defects; M62.81 Muscle weakness (generalized); R26.2 Difficulty in walking, not elsewhere classified; R27.8 Other lack of coordination; R29.818 Other symptoms and signs involving the nervous system; Z74.1 Need for assistance with personal care
CPT/HCPCS: 81002; 87077; 87086; 87088; 87186

== ENCOUNTER → 2022-01-09 | Outpatient (REF) | payer MEDICARE, BC, SELFPAY ==
[2022-01-09 08:05] LABS: INR Fingerstick 1.9
== END ==
LOC: OLS.DANBUR 05:00
PROVIDERS: PCP Family Medicine
DX: Z79.01 Long term (current) use of anticoagulants (principal)
CPT/HCPCS: 36416; 85610

== ENCOUNTER → 2022-01-17 | Outpatient (REF) | payer MEDICARE, BC, SELFPAY ==
[2022-01-17 08:26] LABS: INR Fingerstick 1.8; Prothrombin Time Fingerstick 21.3 SEC (11.7-14.9)
== END ==
LOC: OLS.DANBUR 05:00
PROVIDERS: PCP Family Medicine
DX: Z95.2 Presence of prosthetic heart valve (principal)
CPT/HCPCS: 36416; 85610

== ENCOUNTER → 2022-01-24 | Outpatient (REF) | payer MEDICARE, BC, SELFPAY ==
[2022-01-24 08:31] LABS: INR Fingerstick 1.8; Prothrombin Time Fingerstick 21.2 SEC (11.7-14.9)
== END ==
LOC: OLS.DANBUR 04:00
PROVIDERS: PCP Family Medicine; Visit Provider Family Medicine
DX: Z79.01 Long term (current) use of anticoagulants (principal)
CPT/HCPCS: 36416; 85610

== ENCOUNTER → 2022-02-07 | Outpatient (REF) | payer MEDICARE, BC, SELFPAY ==
[2022-02-07 08:45] LABS: INR Fingerstick 1.4; Prothrombin Time Fingerstick 17.5 SEC (11.7-14.9)
== END ==
LOC: OLS.DANBUR 05:00
PROVIDERS: PCP Family Medicine
DX: Z79.01 Long term (current) use of anticoagulants (principal)
CPT/HCPCS: 36416; 85610

== ENCOUNTER → 2022-02-11 | Outpatient (REF) | payer MEDICARE, BC, SELFPAY ==
[2022-02-11 08:15] LABS: INR Fingerstick 2.3; Prothrombin Time Fingerstick 26.5 SEC (11.7-14.9)
== END ==
LOC: OLS.DANBUR 04:00
PROVIDERS: PCP Family Medicine; Referring Provider Internal Medicine Cardiovascular Disease; Visit Provider Internal Medicine Cardiovascular Disease
DX: Z79.01 Long term (current) use of anticoagulants (principal)
CPT/HCPCS: 36416; 85610